=== PATIENT | male | born 1960 | race Two or more races ===

== ENCOUNTER 2016-04-04 09:49 | Inpatient (IN) | payer MEDICAID ==
[2016-04-04] VITALS (22 sets, daily range): BP systolic 105–163; BP diastolic 43–103
[~2016-04-04] VITALS: Ht 175.3 cm; Wt 90.4 kg
[~2016-04-04 09:49] MED LIST: ALBU18 IN; BACL20TA PO; CARV3.1213 OR; DIVA500T59 PO; DOCU100T15 PO; FER325T PO; FLUC100T3 PO; FLUR30CA12 PO; FURO20TA3 PO; IBUP800T24 PO; NOR5T PO; OMEP20CA5 PO; OXYC10TA44 PO; PANT40TA2 PO; POTA20TA53 PO; PRED-188 PO; QUET400T PO; ROPI1TAB22 PO; SENN-58 PO; SUCR1TAB PO; TAMS0.4C36 PO
[2016-04-04] MEDS ORDERED: SUCCINYLCHOLINE CHLORIDE 20 MG/ML 10ML VIAL IV ONE ×2 (09:57→10:15)
[2016-04-04] MEDS ORDERED: ETOMIDATE (2MG/ML) 20ML VIAL IV ONE ×2 (09:57→10:15)
[2016-04-04] MEDS ORDERED: IPRATROPIUM BROM 0.5 MG/2.5ML INH SOL NEB ONE (10:15)
[2016-04-04] MEDS ORDERED: ALBUTEROL SULF 2.5 MG/0.5ML(0.5%) NEB SOLN NEB ONE (10:15)
[2016-04-04] MEDS: MIDAZOLAM DRIP 100 mg/100mL NS 100 ML IV SCH (10:30)
[2016-04-04] MEDS ORDERED: methylPREDNISolone SOD SUCC 125 MG/2 ML VL IV ONE (10:30)
[2016-04-04 11:34] LABS: Basophils # (auto) 0 uL; Basophils % (auto) 0.1 % (0.0-2.0); DEFINITIVE VIEW TRANSMISSION; Eosinophils # (auto) 0 uL; Eosinophils % (auto) 0.5 % (0.0-7.0); Hemoglobin 13.3 g/dL (13.5-17.5); Lymphocytes # (auto) 1.5 uL; Lymphocytes % (auto) 22.1 % (10.0-50.0); Mean Corpuscular Hemoglobin 25.1 pg (28.0-32.0); Mean Corpuscular Hgb Conc. 31.6 g/dL (32.0-36.0); Mean Corpuscular Volume 79.6 fL (80.0-100.0); Mean Platelet Volume 8.8 fL (7.4-10.4); Monocytes # (auto) 0.6 uL; Monocytes % (auto) 8.3 % (0.0-12.0); Neutrophils # (auto) 4.8 uL; Platelet Count (auto) 295 10^3/uL (140-450); Red Cell Distribution Width 19.4 % (11.6-16.0); White Blood Cell 6.9 10^3/uL (4.4-10.8)
[2016-04-04 11:48] LABS: Albumin 3.7 g/dL (3.4-5.0); BUN/Creatinine Ratio 20.8; Bilirubin, Total 0.3 mg/dL (0.2-1.0); Calcium 9.2 mg/dL (8.5-10.1); Total Protein 7.9 g/dL (6.4-8.2)
[2016-04-04 11:50] LABS: INR 1.14 (0.9-1.15); Partial Thromboplastin Time 26.6 sec (22.64-33.71); Prothrombin Time 11.7 sec (9.37-12.3)
[2016-04-04 11:57] LABS: Urine Bilirubin 1+ (Negative); Urine Blood Negative /uL (Negative); Urine Color Yellow (Yellow); Urine Glucose Normal (Normal); Urine Hyaline Cast MOD /lpf (0 - 2); Urine Mucus FEW (None Seen); Urine Nitrite Negative (Negative); Urine RBC <1 /hpf (0 - 3); Urine Squamous Epithelial Cell FEW /hpf (<5)
[2016-04-04 12:35] LABS: Urine Ketone 2+ (Negative)
[2016-04-04] MEDS ORDERED: MORPHINE SULF INJ 2 MG/ML SYRINGE 1ML IV PRN (13:00)
[2016-04-04] MEDS ORDERED: NITROGLYCERIN 0.4 MG SL TAB SL PRN (13:00)
[2016-04-04] MEDS ORDERED: OSELTAMIVIR 75 MG CAP PO ONE (13:00)
[2016-04-04] MEDS ORDERED: ALBUTEROL SULF 2.5 MG/0.5ML(0.5%) NEB SOLN NEB PRN (13:00)
[2016-04-04] MEDS ORDERED: LORazepam 2MG/ML-1ML VIAL IV PRN (13:00)
[2016-04-04] MEDS ORDERED: PROMETHAZINE HCL 25 MG/ML 1ML IV PRN (13:00)
[2016-04-04] MEDS: SODIUM CHLORIDE 0.9% 1,000 ML IV SCH ×3 (13:24→14:10)
[2016-04-04] MEDS ORDERED: PROPOFOL 100 ML IV ONE (14:07)
[2016-04-04] MEDS: PROPOFOL 100 ML IV SCH (14:20)
[2016-04-04 15:07] LABS: B-Type Natriuretic Peptide 25.5 pg/mL (0-100); Temperature: 21.1 C (20.0-25.0)
[2016-04-04] MEDS ORDERED: AZITHROMYCIN 500MG/D5W 250ML 250 ML IV ONE (17:15)
[2016-04-04] MEDS ORDERED: VANCOMYCIN PER PHARMACY 0 MG IV SCH (17:15)
[2016-04-04] MEDS: IPRATROPIUM BROM 0.5 MG/2.5ML INH SOL NEB SCH (19:13)
[2016-04-04] MEDS: ALBUTEROL SULF 2.5 MG/0.5ML(0.5%) NEB SOLN NEB SCH (19:13)
[2016-04-04] MEDS: methylPREDNISolone SOD SUCC 40 MG/ML VL IV SCH (19:45)
[2016-04-04] MEDS: PIPERACILLIN-TAZOB 3.375GM 100 ML IV SCH (19:45)
[2016-04-04] MEDS ORDERED: PATIENTS OWN MEDICATION (Docusate Sodium 100 MG) PO SCH (22:00)
[2016-04-04] MEDS ORDERED: OSELTAMIVIR 75 MG CAP PO SCH (22:00)
[2016-04-04] MEDS: CARVEDILOL 3.125 MG TAB PO SCH (22:46)
[2016-04-04] MEDS: BACLOFEN 10 MG TAB PO SCH (22:46)
[2016-04-05] VITALS (105 sets, daily range): BP systolic 103–162; BP diastolic 59–94
[2016-04-05] MEDS: VANCOMYCIN 1,250 MG in D5W 5% 250 ML IV SCH ×3 (00:02→22:36)
[2016-04-05] MEDS: SUCRALFATE 1 GM TAB PO SCH ×4 (00:12→18:34)
[2016-04-05] MEDS: methylPREDNISolone SOD SUCC 40 MG/ML VL IV SCH ×4 (00:12→18:34)
[2016-04-05] MEDS: IPRATROPIUM BROM 0.5 MG/2.5ML INH SOL NEB SCH ×4 (00:45→18:21)
[2016-04-05] MEDS: ALBUTEROL SULF 2.5 MG/0.5ML(0.5%) NEB SOLN NEB SCH ×4 (00:45→18:21)
[2016-04-05] MEDS: PIPERACILLIN-TAZOB 3.375GM 100 ML IV SCH ×4 (01:00→18:34)
[2016-04-05] MEDS: PROPOFOL 100 ML IV SCH ×3 (01:10→21:43)
[2016-04-05 04:36] LABS: DEFINITIVE VIEW TRANSMISSION; Hematocrit 35.9 % (41.0-53.0); Hemoglobin 11.4 g/dL (13.5-17.5); Mean Corpuscular Hemoglobin 25.4 pg (28.0-32.0); Mean Corpuscular Hgb Conc. 31.7 g/dL (32.0-36.0); Mean Corpuscular Volume 80.1 fL (80.0-100.0); Mean Platelet Volume 8.7 fL (7.4-10.4); Platelet Count (auto) 310 10^3/uL (140-450); Red Cell Distribution Width 19.7 % (11.6-16.0); SUSPECT VIEW TRANSMISSION; White Blood Cell 8.9 10^3/uL (4.4-10.8)
[2016-04-05 04:41] LABS: Metamyelocytes % 0; Myelocytes % 0; Promyelocytes % 0; Reactive Lymphocytes 0
[2016-04-05 05:07] LABS: BUN/Creatinine Ratio 19.8; Bilirubin, Total 0.4 mg/dL (0.2-1.0); Calcium 8.8 mg/dL (8.5-10.1); Potassium 3.5 mmol/L (3.5-5.1); Total Protein 6.5 g/dL (6.4-8.2)
[2016-04-05 05:17] LABS: B-Type Natriuretic Peptide 47.88 pg/mL (0-100)
[2016-04-05 05:18] LABS: Anisocytosis Moderate; Hypochromia Slight; Ovalocytes FEW; Platelet Estimate Adequate
[2016-04-05 05:24] LABS: Temperature: 21.9 C (20.0-25.0)
[2016-04-05] MEDS: MIDAZOLAM DRIP 100 mg/100mL NS 100 ML IV SCH (05:31)
[2016-04-05] MEDS: SODIUM CHLORIDE 0.9% 1,000 ML IV SCH (05:32)
[2016-04-05] MEDS: DOCUSATE SOD 100 MG CAP PO SCH ×2 (10:00→21:43)
[2016-04-05] MEDS ORDERED: LEVOFLOXACIN 500MG 100 ML IV SCH (10:00)
[2016-04-05] MEDS ORDERED: DIVALPROEX SODIUM 1500 MG PO SCH (10:00)
[2016-04-05] MEDS: TAMSULOSIN HYDROCHLORIDE 0.4 MG CAP PO SCH (10:00)
[2016-04-05] MEDS: ENOXAPARIN SOD 40 MG/0.4 ML SYRINGE SC SCH (10:09)
[2016-04-05] MEDS: BACLOFEN 10 MG TAB PO SCH ×2 (10:10→21:42)
[2016-04-05] MEDS: PANTOPRAZOLE 40 MG TAB PO SCH (10:10)
[2016-04-05] MEDS: CARVEDILOL 3.125 MG TAB PO SCH ×2 (10:11→22:36)
[2016-04-05] MEDS: AZITHROMYCIN 500MG/D5W 250ML 250 ML IV SCH (10:13)
[2016-04-05] MEDS ORDERED: MIDAZOLAM DRIP 100 mg/100mL NS 100 ML IV ONE (13:39)
[2016-04-05] MEDS ORDERED: MIDAZOLAM DRIP 100 mg/100mL NS 100 ML IV SCH (14:00)
[2016-04-05] MEDS ORDERED: PATIENTS OWN MEDICATION (Quetiapine Fumerate (Seroquel) 1 TAB) PO SCH (18:00)
[2016-04-05] MEDS: QUEtiapine FUMARATE 100 MG TAB PO SCH (21:41)
[2016-04-05] MEDS: ROPINIROLE 2 MG PO SCH (21:44)
[2016-04-06] VITALS (90 sets, daily range): BP systolic 95–158; BP diastolic 47–95
[2016-04-06] MEDS: methylPREDNISolone SOD SUCC 40 MG/ML VL IV SCH ×4 (00:29→17:47)
[2016-04-06] MEDS: SUCRALFATE 1 GM TAB PO SCH ×4 (00:29→17:48)
[2016-04-06] MEDS: PIPERACILLIN-TAZOB 3.375GM 100 ML IV SCH ×4 (00:29→19:17)
[2016-04-06] MEDS: ALBUTEROL SULF 2.5 MG/0.5ML(0.5%) NEB SOLN NEB SCH ×4 (00:30→19:32)
[2016-04-06] MEDS: IPRATROPIUM BROM 0.5 MG/2.5ML INH SOL NEB SCH ×4 (00:30→19:32)
[2016-04-06 04:14] LABS: DEFINITIVE VIEW TRANSMISSION; Hematocrit 35.1 % (41.0-53.0); Hemoglobin 10.9 g/dL (13.5-17.5); Mean Corpuscular Hemoglobin 24.9 pg (28.0-32.0); Mean Corpuscular Hgb Conc. 31.1 g/dL (32.0-36.0); Mean Corpuscular Volume 80.2 fL (80.0-100.0); Mean Platelet Volume 8.9 fL (7.4-10.4); Platelet Count (auto) 278 10^3/uL (140-450); White Blood Cell 7.5 10^3/uL (4.4-10.8)
[2016-04-06 04:45] LABS: Red Cell Distribution Width 20.5 % (11.6-16.0)
[2016-04-06 04:46] LABS: Metamyelocytes % 0; Myelocytes % 0; Promyelocytes % 0; Reactive Lymphocytes 0
[2016-04-06 04:49] LABS: Albumin 2.7 g/dL (3.4-5.0); BUN/Creatinine Ratio 19.3; Bilirubin, Total 0.3 mg/dL (0.2-1.0); Calcium 8.9 mg/dL (8.5-10.1); Magnesium 2.1 mg/dL (1.6-2.6)
[2016-04-06 04:59] LABS: Potassium 2.9 mmol/L (3.5-5.1)
[2016-04-06 05:33] LABS: Anisocytosis Moderate; Hypochromia Slight; Ovalocytes FEW; Platelet Estimate Adequate
[2016-04-06] MEDS ORDERED: POTASSIUM CHLORIDE 40 MEQ, LIDOCAINE 1% (LOCAL ANESTH.) 4 ML in SODIUM CHL 0.9% 250 ML IV ONE (06:00)
[2016-04-06] MEDS: PROPOFOL 100 ML IV SCH ×3 (07:08→19:18)
[2016-04-06] MEDS: DOCUSATE SOD 100 MG CAP PO SCH ×2 (09:05→21:31)
[2016-04-06] MEDS: AZITHROMYCIN 500MG/D5W 250ML 250 ML IV SCH (09:05)
[2016-04-06] MEDS: TAMSULOSIN HYDROCHLORIDE 0.4 MG CAP PO SCH (09:06)
[2016-04-06] MEDS: CARVEDILOL 3.125 MG TAB PO SCH ×2 (09:06→21:33)
[2016-04-06] MEDS: BACLOFEN 10 MG TAB PO SCH ×2 (09:06→21:34)
[2016-04-06] MEDS: PANTOPRAZOLE 40 MG TAB PO SCH (09:07)
[2016-04-06] MEDS: ENOXAPARIN SOD 40 MG/0.4 ML SYRINGE SC SCH (09:07)
[2016-04-06] MEDS: VANCOMYCIN 1,250 MG in D5W 5% 250 ML IV SCH ×2 (11:15→22:38)
[2016-04-06] MEDS: QUEtiapine FUMARATE 100 MG TAB PO SCH (21:34)
[2016-04-06] MEDS: ROPINIROLE 2 MG PO SCH (22:00)
[2016-04-07] VITALS (27 sets, daily range): BP systolic 99–120; BP diastolic 48–78
[2016-04-07] MEDS: IPRATROPIUM BROM 0.5 MG/2.5ML INH SOL NEB SCH ×4 (00:55→19:29)
[2016-04-07] MEDS: ALBUTEROL SULF 2.5 MG/0.5ML(0.5%) NEB SOLN NEB SCH ×4 (00:55→19:30)
[2016-04-07] MEDS: PIPERACILLIN-TAZOB 3.375GM 100 ML IV SCH ×4 (01:00→17:58)
[2016-04-07 03:43] LABS: DEFINITIVE VIEW TRANSMISSION; Hematocrit 34.5 % (41.0-53.0); Hemoglobin 10.7 g/dL (13.5-17.5); Mean Corpuscular Hemoglobin 24.9 pg (28.0-32.0); Mean Corpuscular Volume 80.6 fL (80.0-100.0); Mean Platelet Volume 9.1 fL (7.4-10.4); Platelet Count (auto) 259 10^3/uL (140-450); White Blood Cell 7.1 10^3/uL (4.4-10.8)
[2016-04-07 03:49] LABS: Red Cell Distribution Width 20.5 % (11.6-16.0)
[2016-04-07 03:50] LABS: Metamyelocytes % 0; Myelocytes % 0; Promyelocytes % 0; Reactive Lymphocytes 0
[2016-04-07 04:08] LABS: Albumin 2.6 g/dL (3.4-5.0); BUN/Creatinine Ratio 29.6; Bilirubin, Total 0.3 mg/dL (0.2-1.0); Calcium 8.6 mg/dL (8.5-10.1); Potassium 3.3 mmol/L (3.5-5.1); Total Protein 5.8 g/dL (6.4-8.2)
[2016-04-07 04:14] LABS: Anisocytosis Moderate; Hypersegmented Neutrophils Present; Microcytosis Slight; Platelet Estimate Adequate
[2016-04-07 04:15] LABS: Hypochromia Slight
[2016-04-07] MEDS: SUCRALFATE 1 GM TAB PO SCH ×4 (05:06→17:28)
[2016-04-07] MEDS: methylPREDNISolone SOD SUCC 40 MG/ML VL IV SCH ×4 (05:12→17:28)
[2016-04-07] MEDS: MORPHINE SULF INJ 2 MG/ML SYRINGE 1ML IV PRN ×2 (08:53→22:04)
[2016-04-07] MEDS: AZITHROMYCIN 500MG/D5W 250ML 250 ML IV SCH (09:05)
[2016-04-07] MEDS: BACLOFEN 10 MG TAB PO SCH ×2 (09:23→22:05)
[2016-04-07] MEDS: PANTOPRAZOLE 40 MG TAB PO SCH (09:23)
[2016-04-07] MEDS: ENOXAPARIN SOD 40 MG/0.4 ML SYRINGE SC SCH (09:23)
[2016-04-07] MEDS: DOCUSATE SOD 100 MG CAP PO SCH ×2 (09:24→22:05)
[2016-04-07] MEDS: CARVEDILOL 3.125 MG TAB PO SCH ×2 (09:24→22:06)
[2016-04-07] MEDS: TAMSULOSIN HYDROCHLORIDE 0.4 MG CAP PO SCH (09:24)
[2016-04-07] MEDS ORDERED: POTASSIUM CHLORIDE 40 MEQ, LIDOCAINE 1% (LOCAL ANESTH.) 4 ML in SODIUM CHL 0.9% 250 ML IV ONE (10:15)
[2016-04-07] MEDS: VANCOMYCIN 1,250 MG in D5W 5% 250 ML IV SCH ×2 (11:03→23:33)
[2016-04-07] MEDS: ROPINIROLE 2 MG PO SCH (22:00)
[2016-04-07] MEDS: QUEtiapine FUMARATE 100 MG TAB PO SCH (22:05)
[2016-04-08] MEDS: ZOLPIDEM TARTRATE 5 MG TAB PO PRN
[2016-04-08] MEDS: ALBUTEROL SULF 2.5 MG/0.5ML(0.5%) NEB SOLN NEB SCH ×4 (00:22→19:12)
[2016-04-08] MEDS: IPRATROPIUM BROM 0.5 MG/2.5ML INH SOL NEB SCH ×4 (00:22→19:12)
[2016-04-08] MEDS: PIPERACILLIN-TAZOB 3.375GM 100 ML IV SCH ×4 (01:41→17:54)
[2016-04-08] MEDS: MORPHINE SULF INJ 2 MG/ML SYRINGE 1ML IV PRN ×5 (02:13→22:24)
[2016-04-08 04:48] VITALS: BP 123/75
[2016-04-08] MEDS: methylPREDNISolone SOD SUCC 40 MG/ML VL IV SCH ×4 (06:08→17:54)
[2016-04-08] MEDS: SUCRALFATE 1 GM TAB PO SCH ×4 (06:08→17:54)
[2016-04-08 06:35] LABS: DEFINITIVE VIEW TRANSMISSION; Hematocrit 33.4 % (41.0-53.0); Hemoglobin 10.6 g/dL (13.5-17.5); Mean Corpuscular Hemoglobin 25.5 pg (28.0-32.0); Mean Corpuscular Hgb Conc. 31.8 g/dL (32.0-36.0); Mean Corpuscular Volume 80.3 fL (80.0-100.0); Mean Platelet Volume 9.2 fL (7.4-10.4); Platelet Count (auto) 221 10^3/uL (140-450); White Blood Cell 3.9 10^3/uL (4.4-10.8)
[2016-04-08 07:00] LABS: Potassium 3.5 mmol/L (3.5-5.1)
[2016-04-08 07:02] LABS: Red Cell Distribution Width 20.2 % (11.6-16.0)
[2016-04-08 07:03] LABS: Metamyelocytes % 0; Myelocytes % 0; Promyelocytes % 0; Reactive Lymphocytes 0
[2016-04-08 07:07] LABS: Albumin 2.4 g/dL (3.4-5.0); BUN/Creatinine Ratio 30.3; Calcium 8.2 mg/dL (8.5-10.1)
[2016-04-08 07:09] LABS: Bilirubin, Total 0.4 mg/dL (0.2-1.0); Total Protein 5.5 g/dL (6.4-8.2)
[2016-04-08 07:51] LABS: Anisocytosis Slight; Hypochromia Slight; Platelet Estimate Adequate
[2016-04-08 08:52] VITALS: BP 102/66
[2016-04-08] MEDS: BACLOFEN 10 MG TAB PO SCH ×2 (09:49→22:24)
[2016-04-08] MEDS: AZITHROMYCIN 500MG/D5W 250ML 250 ML IV SCH (09:49)
[2016-04-08] MEDS: PANTOPRAZOLE 40 MG TAB PO SCH (09:49)
[2016-04-08] MEDS: DOCUSATE SOD 100 MG CAP PO SCH ×2 (09:49→22:23)
[2016-04-08] MEDS: ENOXAPARIN SOD 40 MG/0.4 ML SYRINGE SC SCH (09:50)
[2016-04-08] MEDS: TAMSULOSIN HYDROCHLORIDE 0.4 MG CAP PO SCH (09:50)
[2016-04-08] MEDS: CARVEDILOL 3.125 MG TAB PO SCH ×2 (09:50→22:23)
[2016-04-08] MEDS: VANCOMYCIN 1,250 MG in D5W 5% 250 ML IV SCH ×2 (11:32→22:58)
[2016-04-08 13:00] VITALS: BP 104/60
[2016-04-08 17:00] VITALS: BP 104/62
[2016-04-08 22:00] VITALS: BP 114/69
[2016-04-08] MEDS: ROPINIROLE 2 MG PO SCH (22:00)
[2016-04-08] MEDS: QUEtiapine FUMARATE 100 MG TAB PO SCH (22:24)
[2016-04-09] MEDS: SUCRALFATE 1 GM TAB PO SCH ×4 (00:02→17:57)
[2016-04-09] MEDS: ZOLPIDEM TARTRATE 5 MG TAB PO PRN ×2 (00:03→22:57)
[2016-04-09] MEDS: methylPREDNISolone SOD SUCC 40 MG/ML VL IV SCH ×4 (00:03→17:57)
[2016-04-09] MEDS: ALBUTEROL SULF 2.5 MG/0.5ML(0.5%) NEB SOLN NEB SCH ×4 (00:27→19:32)
[2016-04-09] MEDS: IPRATROPIUM BROM 0.5 MG/2.5ML INH SOL NEB SCH ×4 (00:27→19:32)
[2016-04-09] MEDS: PIPERACILLIN-TAZOB 3.375GM 100 ML IV SCH ×4 (00:46→18:38)
[2016-04-09 05:00] VITALS: BP 114/73
[2016-04-09] MEDS: MORPHINE SULF INJ 2 MG/ML SYRINGE 1ML IV PRN ×3 (05:56→20:54)
[2016-04-09 09:11] VITALS: BP 119/69
[2016-04-09] MEDS: DOCUSATE SOD 100 MG CAP PO SCH ×2 (10:00→21:21)
[2016-04-09] MEDS: BACLOFEN 10 MG TAB PO SCH ×2 (10:21→21:21)
[2016-04-09] MEDS: TAMSULOSIN HYDROCHLORIDE 0.4 MG CAP PO SCH (10:21)
[2016-04-09] MEDS: PANTOPRAZOLE 40 MG TAB PO SCH (10:22)
[2016-04-09] MEDS: CARVEDILOL 3.125 MG TAB PO SCH ×2 (10:24→21:22)
[2016-04-09] MEDS: ENOXAPARIN SOD 40 MG/0.4 ML SYRINGE SC SCH (10:34)
[2016-04-09] MEDS: AZITHROMYCIN 500MG/D5W 250ML 250 ML IV SCH (10:34)
[2016-04-09] MEDS: VANCOMYCIN 1,250 MG in D5W 5% 250 ML IV SCH ×2 (10:34→22:57)
[2016-04-09 12:39] VITALS: BP 121/72
[2016-04-09 17:04] VITALS: BP 122/69
[2016-04-09] MEDS: FUROSEMIDE 20 MG/2 ML VIAL IV SCH (17:57)
[2016-04-09 18:56] LABS: DEFINITIVE VIEW TRANSMISSION; Hematocrit 36.4 % (41.0-53.0); Hemoglobin 11.3 g/dL (13.5-17.5); Mean Corpuscular Hgb Conc. 31.1 g/dL (32.0-36.0); Mean Corpuscular Volume 80.3 fL (80.0-100.0); Mean Platelet Volume 9.8 fL (7.4-10.4); Platelet Count (auto) 250 10^3/uL (140-450); Red Cell Distribution Width 19.5 % (11.6-16.0); SUSPECT VIEW TRANSMISSION; White Blood Cell 5.1 10^3/uL (4.4-10.8)
[2016-04-09 19:02] LABS: Albumin 2.8 g/dL (3.4-5.0); BUN/Creatinine Ratio 26.9; Bilirubin, Total 0.2 mg/dL (0.2-1.0); Calcium 8.5 mg/dL (8.5-10.1); Potassium 3.7 mmol/L (3.5-5.1); Total Protein 6.1 g/dL (6.4-8.2)
[2016-04-09 19:06] LABS: Metamyelocytes % 0; Myelocytes % 0; Promyelocytes % 0; Reactive Lymphocytes 0
[2016-04-09 20:45] LABS: Anisocytosis Moderate; Platelet Estimate Adequate
[2016-04-09 20:46] LABS: Hypochromia Slight; Ovalocytes FEW
[2016-04-09 21:10] VITALS: BP 134/74
[2016-04-09] MEDS: QUEtiapine FUMARATE 100 MG TAB PO SCH (21:21)
[2016-04-09] MEDS: POTASSIUM CHL 20 Meq TABLET PO SCH (21:22)
[2016-04-09] MEDS: ROPINIROLE 2 MG PO SCH (21:23)
[2016-04-10] MEDS: SUCRALFATE 1 GM TAB PO SCH ×3 (00:01→12:00)
[2016-04-10] MEDS: methylPREDNISolone SOD SUCC 40 MG/ML VL IV SCH ×3 (00:01→12:00)
[2016-04-10] MEDS: IPRATROPIUM BROM 0.5 MG/2.5ML INH SOL NEB SCH ×3 (00:34→11:10)
[2016-04-10] MEDS: ALBUTEROL SULF 2.5 MG/0.5ML(0.5%) NEB SOLN NEB SCH ×3 (00:34→11:09)
[2016-04-10] MEDS: MORPHINE SULF INJ 2 MG/ML SYRINGE 1ML IV PRN ×2 (01:22→05:59)
[2016-04-10] MEDS: PIPERACILLIN-TAZOB 3.375GM 100 ML IV SCH ×2 (01:29→06:09)
[2016-04-10 05:38] VITALS: BP 124/69
[2016-04-10] MEDS: FUROSEMIDE 20 MG/2 ML VIAL IV SCH (05:49)
[2016-04-10 07:19] LABS: B-Type Natriuretic Peptide 133.4 pg/mL (0-100); Temperature: 22.5 C (20.0-25.0)
[2016-04-10 09:00] VITALS: BP 117/73
[2016-04-10] MEDS ORDERED: LEVOFLOXACIN 500 MG TAB PO SCH (10:00)
[2016-04-10] MEDS: POTASSIUM CHL 20 Meq TABLET PO SCH (10:24)
[2016-04-10] MEDS: BACLOFEN 10 MG TAB PO SCH (10:24)
[2016-04-10] MEDS: PANTOPRAZOLE 40 MG TAB PO SCH (10:24)
[2016-04-10] MEDS: ENOXAPARIN SOD 40 MG/0.4 ML SYRINGE SC SCH (10:24)
[2016-04-10] MEDS: TAMSULOSIN HYDROCHLORIDE 0.4 MG CAP PO SCH (10:24)
[2016-04-10] MEDS: DOCUSATE SOD 100 MG CAP PO SCH (10:24)
[2016-04-10] MEDS: CARVEDILOL 3.125 MG TAB PO SCH (10:25)
[2016-04-10 13:00] VITALS: BP 111/45
== END 2016-04-10 12:53 | disposition home or self-care (01) | DRG 194 ==
LOC: EDBD 09:49 → ER 09:51 → TELE 09:52 → ICU WEST 20:06 → TELE-WESTW 04-07 12:00
PROVIDERS: ADMIT Internal Medicine; ATTEND Internal Medicine
PROC: 5A1945Z Respiratory Ventilation, 24-96 Consecutive Hours (ICD-10-PCS; principal; 2016-04-04)
PROC: 0BH17EZ Insertion of Endotracheal Airway into Trachea, Via Natural or Artificial Opening (ICD-10-PCS; 2016-04-04)
DX: I11.0 Hypertensive heart disease with heart failure (principal); R40.20 Unspecified coma; J96.01 Acute respiratory failure with hypoxia; J96.02 Acute respiratory failure with hypercapnia; E44.0 Moderate protein-calorie malnutrition; I50.9 Heart failure, unspecified; J44.1 Chronic obstructive pulmonary disease with (acute) exacerbation; J32.9 Chronic sinusitis, unspecified; R91.8 Other nonspecific abnormal finding of lung field; E87.6 Hypokalemia; F41.9 Anxiety disorder, unspecified; F19.90 Other psychoactive substance use, unspecified, uncomplicated; G89.4 Chronic pain syndrome; E66.9 Obesity, unspecified; J45.909 Unspecified asthma, uncomplicated; E03.9 Hypothyroidism, unspecified; Z68.29 Body mass index [BMI] 29.0-29.9, adult; Z81.1 Family history of alcohol abuse and dependence; Z80.9 Family history of malignant neoplasm, unspecified; Z84.89 Family history of other specified conditions; Z82.0 Family history of epilepsy and other diseases of the nervous system; Z83.3 Family history of diabetes mellitus; Z79.899 Other long term (current) drug therapy; I25.2 Old myocardial infarction; Z98.890 Other specified postprocedural states; Z87.891 Personal history of nicotine dependence; Z87.01 Personal history of pneumonia (recurrent)
CPT/HCPCS: 31500; 36415; 36600; 70450; 71010; 80053; 80202; 81001; 82550; 82805; 82962; 83735; 83880; 84443; 84484; 85007; 85025; 85027; 85049; 85379; 85610; 85730; 87040; 87070; 87081; 87205; 87400; 93005; 93971; 94002; 94003; 94640; 95819; 96374; 96375; 97116; 97530; G0434; J0330; J2001; J2543; J2704; J7060

== ENCOUNTER 2016-05-16 09:15 | Emergency (ER) | payer MEDICAID ==
[~2016-05-16] VITALS: Ht 165.1 cm; Wt 91.6 kg
[2016-05-16 09:42] VITALS: BP 118/59
[2016-05-16] MEDS ORDERED: PROMETHAZINE HCL 25 MG/ML 1ML IM ONE (10:45)
[2016-05-16] MEDS ORDERED: MORPHINE SULFATE 10 MG/ML INJ 1ML SDV IM ONE (10:45)
== END 2016-05-16 10:59 | disposition home or self-care (01) ==
LOC: ER 09:15
DX: M47.892 Other spondylosis, cervical region (principal); M43.6 Torticollis; M54.5 Low back pain; J45.909 Unspecified asthma, uncomplicated; G89.29 Other chronic pain; J44.9 Chronic obstructive pulmonary disease, unspecified; I11.0 Hypertensive heart disease with heart failure; I50.9 Heart failure, unspecified; Z79.899 Other long term (current) drug therapy; Z87.891 Personal history of nicotine dependence
CPT/HCPCS: 72040; 96372; 99284; J2270; J2550

== ENCOUNTER 2016-06-06 10:40 | Inpatient (IN) | payer MEDICAID ==
[~2016-06-06] VITALS: Ht 165.1 cm; Wt 96.5 kg
[2016-06-06 12:04] LABS: Albumin 3.5 g/dL (3.4-5.0); Alkaline Phosphatase 77 U/L (45-117); Anion Gap 10 (5-15); Aspartate Aminotransferase 10 U/L (15-37); Bilirubin, Total 0.2 mg/dL (0.2-1.0); Blood Urea Nitrogen 28 mg/dL (7-18); Calcium 8.2 mg/dL (8.5-10.1); Carbon Dioxide 30 mmol/L (21-32); Chloride 106 mmol/L (98-107); GFR African American 151 mL/min; GFR Non-African American 124 mL/min; Glucose 102 mg/dL (74-106); Magnesium 2.8 mg/dL (1.6-2.6); Potassium 4.2 mmol/L (3.5-5.1); Sodium 146 mmol/L (136-145); Total Protein 6.8 g/dL (6.4-8.2)
[2016-06-06 12:27] LABS: Basophils # (auto) 0.1 uL; Basophils % (auto) 0.6 % (0.0-2.0); DEFINITIVE VIEW TRANSMISSION; Eosinophils # (auto) 0.2 uL; Hematocrit 29.9 % (41.0-53.0); Hemoglobin 9.4 g/dL (13.5-17.5); Lymphocytes # (auto) 1.7 uL; Lymphocytes % (auto) 17.8 % (10.0-50.0); Mean Corpuscular Hemoglobin 25.4 pg (28.0-32.0); Mean Corpuscular Hgb Conc. 31.6 g/dL (32.0-36.0); Mean Corpuscular Volume 80.4 fL (80.0-100.0); Mean Platelet Volume 8.4 fL (7.4-10.4); Monocytes # (auto) 0.8 uL; Monocytes % (auto) 8.4 % (0.0-12.0); Neutrophils # (auto) 6.7 uL; Neutrophils % (auto) 71.2 % (37.0-80.0); Platelet Count (auto) 265 10^3/uL (140-450); Red Cell Distribution Width 16.8 % (11.6-16.0); White Blood Cell 9.5 10^3/uL (4.4-10.8)
[2016-06-06] MEDS ORDERED: ALBUTEROL SULF 2.5 MG/0.5ML(0.5%) NEB SOLN NEB ONE (12:30)
[2016-06-06] MEDS ORDERED: ONDANSETRON HCL 4 MG/2 ML VIAL IV ONE (12:30)
[2016-06-06] MEDS ORDERED: IPRATROPIUM BROM 0.5 MG/2.5ML INH SOL NEB ONE (12:30)
[2016-06-06] MEDS ORDERED: methylPREDNISolone SOD SUCC 125 MG/2 ML VL IV ONE (12:30)
[2016-06-06] MEDS ORDERED: MORPHINE SULFATE 4 MG/ML SYRG IV ONE (12:30)
[2016-06-06 12:56] LABS: INR 1.03 (0.9-1.15); Partial Thromboplastin Time 23.7 sec (22.64-33.71); Prothrombin Time 10.6 sec (9.37-12.3)
[2016-06-06 12:58] LABS: B-Type Natriuretic Peptide 89.5 pg/mL (0-100); Temperature: 22.2 C (20.0-25.0)
[2016-06-06] MEDS ORDERED: NALOXONE HCL 0.4 MG/ML VIAL ONE (13:42)
[2016-06-06] MEDS ORDERED: NALOXONE HCL 1MG/ML 2ML SYRINGE IV ONE (14:00)
[2016-06-06] MEDS ORDERED: IOHEXOL 350 MG/ML 100ML IJ ONE (14:07)
[2016-06-06 14:46] VITALS: BP 133/73
[2016-06-06] MEDS ORDERED: NALOXONE HCL 0.4 MG/ML VIAL IV ONE (15:45)
[2016-06-06 16:45] VITALS: BP 133/73
[2016-06-06] MEDS ORDERED: cefTRIAXone 1GM/50ML D5W 50 ML IV ONE (17:00)
[2016-06-06] MEDS ORDERED: PROMETHAZINE HCL 25 MG/ML 1ML IV PRN (18:30)
[2016-06-06] MEDS ORDERED: ACETAMINOPHEN 500 MG TAB PO PRN (18:30)
[2016-06-06] MEDS ORDERED: OSELTAMIVIR 75 MG CAP PO ONE (18:30)
[2016-06-06] MEDS ORDERED: LACTULOSE 20Gm/30ML SOLN PO PRN (18:30)
[2016-06-06] MEDS ORDERED: NITROGLYCERIN 0.4 MG SL TAB SL PRN (18:30)
[2016-06-06] MEDS ORDERED: ALBUTEROL SULF 2.5 MG/0.5ML(0.5%) NEB SOLN NEB PRN (18:30)
[2016-06-06] MEDS ORDERED: MORPHINE SULF INJ 2 MG/ML SYRINGE 1ML IV PRN (18:30)
[2016-06-06] MEDS ORDERED: ENOXAPARIN SOD 40 MG/0.4 ML SYRINGE SC ONE (18:41)
[2016-06-06] MEDS ORDERED: ASPirin 81 mg TAB PO ONE (19:00)
[2016-06-06] MEDS: cefTRIAXone 1GM/50ML D5W 50 ML IV SCH (19:10)
[2016-06-06] MEDS: AZITHROMYCIN 500MG/D5W 250ML 250 ML IV SCH (19:15)
[2016-06-06] MEDS ORDERED: FUROSEMIDE 40 MG/4 ML VIAL IV ONE (19:15)
[2016-06-06] MEDS ORDERED: POTASSIUM CHL 20 Meq TABLET PO ONE (19:15)
[2016-06-06] MEDS ORDERED: FLUCONAZOLE 100 MG TAB PO ONE (19:15)
[2016-06-06] MEDS ORDERED: PANTOPRAZOLE 40 MG TAB PO ONE (19:15)
[2016-06-06 19:40] VITALS: BP 115/70
[2016-06-06] MEDS: DOCUSATE SOD 100 MG CAP PO SCH (22:00)
[2016-06-06] MEDS ORDERED: ACETAMINOPHEN PO SCH (22:00)
[2016-06-06] MEDS ORDERED: OXYCODONE PO SCH (22:00)
[2016-06-06] MEDS: CARVEDILOL 3.125 MG TAB PO SCH ×2 (22:00→23:21)
[2016-06-06] MEDS: SUCRALFATE 1 GM TAB PO SCH (22:00)
[2016-06-06] MEDS: BACLOFEN 10 MG TAB PO SCH (22:00)
[2016-06-06] MEDS ORDERED: FLURAZEPAM HCL 30 MG PO SCH (22:00)
[2016-06-06] MEDS: SENNA 8.6 MG TAB PO SCH (22:00)
[2016-06-07] VITALS (7 sets, daily range): BP systolic 115–132; BP diastolic 59–78
[2016-06-07] MEDS: methylPREDNISolone SOD SUCC 40 MG/ML VL IV SCH ×4 (00:12→18:21)
[2016-06-07] MEDS ORDERED: NEOMYCIN-BACITRACIN-POLYM UNITDOSE PKG TOP OINT TOP ONE (01:45)
[2016-06-07] MEDS ORDERED: LIDOCAINE W/ EPINEPHRINE 1% 20ML VIAL SC ONE (01:45)
[2016-06-07] MEDS: TEMAZEPAM 15 MG CAP PO PRN ×2 (03:44→23:17)
[2016-06-07] MEDS: IPRATROPIUM BROM 0.5 MG/2.5ML INH SOL NEB SCH ×4 (05:40→19:28)
[2016-06-07] MEDS: ALBUTEROL SULF 2.5 MG/0.5ML(0.5%) NEB SOLN NEB SCH ×4 (05:40→19:28)
[2016-06-07] MEDS: SUCRALFATE 1 GM TAB PO SCH ×4 (06:25→21:26)
[2016-06-07 06:33] LABS: Basophils # (auto) 0 uL; DEFINITIVE VIEW TRANSMISSION; Eosinophils # (auto) 0 uL; Hematocrit 29.9 % (41.0-53.0); Hemoglobin 9.3 g/dL (13.5-17.5); Lymphocytes # (auto) 0.3 uL; Lymphocytes % (auto) 7.4 % (10.0-50.0); Mean Corpuscular Hemoglobin 24.9 pg (28.0-32.0); Mean Corpuscular Volume 80.3 fL (80.0-100.0); Mean Platelet Volume 8.8 fL (7.4-10.4); Monocytes # (auto) 0.1 uL; Monocytes % (auto) 1.7 % (0.0-12.0); Neutrophils # (auto) 3.5 uL; Neutrophils % (auto) 90.9 % (37.0-80.0); Platelet Count (auto) 247 10^3/uL (140-450); Red Cell Distribution Width 16.4 % (11.6-16.0); White Blood Cell 3.8 10^3/uL (4.4-10.8)
[2016-06-07 06:47] LABS: Albumin 3.2 g/dL (3.4-5.0); Alkaline Phosphatase 87 U/L (45-117); Anion Gap 8 (5-15); Aspartate Aminotransferase 5 U/L (15-37); BUN/Creatinine Ratio 38.5; Bilirubin, Total 0.1 mg/dL (0.2-1.0); Blood Urea Nitrogen 25 mg/dL (7-18); Calcium 8.4 mg/dL (8.5-10.1); Carbon Dioxide 36 mmol/L (21-32); Chloride 102 mmol/L (98-107); GFR African American 164 mL/min; GFR Non-African American 136 mL/min; Glucose 155 mg/dL (74-106); Potassium 5.2 mmol/L (3.5-5.1); Sodium 146 mmol/L (136-145); Total Protein 6.4 g/dL (6.4-8.2)
[2016-06-07 07:53] LABS: B-Type Natriuretic Peptide 216.63 pg/mL (0-100)
[2016-06-07 07:54] LABS: Temperature: 21.6 C (20.0-25.0)
[2016-06-07] MEDS: cefTRIAXone 1GM/50ML D5W 50 ML IV SCH (09:39)
[2016-06-07] MEDS: FUROSEMIDE 40 MG/4 ML VIAL IV SCH (09:40)
[2016-06-07] MEDS: FERROUS SULFATE 325 MG TAB PO SCH ×3 (09:40→18:21)
[2016-06-07] MEDS ORDERED: ENALAPRIL MALEATE 2.5 MG TAB PO SCH (10:00)
[2016-06-07] MEDS ORDERED: OSELTAMIVIR 75 MG CAP PO SCH (10:00)
[2016-06-07] MEDS ORDERED: DIVALPROEX SODIUM 1500 MG PO SCH (10:00)
[2016-06-07] MEDS: FLUCONAZOLE 100 MG TAB PO SCH (11:01)
[2016-06-07] MEDS: DOCUSATE SOD 100 MG CAP PO SCH ×2 (11:01→21:28)
[2016-06-07] MEDS: ASPirin 81 mg TAB PO SCH (11:01)
[2016-06-07] MEDS: POTASSIUM CHL 20 Meq TABLET PO SCH (11:02)
[2016-06-07] MEDS: PANTOPRAZOLE 40 MG TAB PO SCH (11:02)
[2016-06-07] MEDS: BACLOFEN 10 MG TAB PO SCH ×2 (11:02→21:26)
[2016-06-07] MEDS: SENNA 8.6 MG TAB PO SCH ×2 (11:02→21:28)
[2016-06-07] MEDS: ENOXAPARIN SOD 40 MG/0.4 ML SYRINGE SC SCH (11:02)
[2016-06-07] MEDS: NITROGLYCERIN 0.2MG/HR TOPICAL PATCH TD SCH (11:03)
[2016-06-07] MEDS: AZITHROMYCIN 500MG/D5W 250ML 250 ML IV SCH (11:07)
[2016-06-07] MEDS: OXYCODONE W/ ACETAMINOPHEN 5/325MG TABLET PO SCH ×2 (13:56→21:27)
[2016-06-07] MEDS: ROPINIROLE HYDROCHLORIDE 1 MG PO SCH (18:00)
[2016-06-07] MEDS ORDERED: QUETIAPINE FUMERATE 400 MG PO SCH (18:00)
[2016-06-07] MEDS: TAMSULOSIN HYDROCHLORIDE 0.4 MG CAP PO SCH (18:22)
[2016-06-07] MEDS: LORazepam 0.5 MG TAB PO PRN ×2 (20:28)
[2016-06-07] MEDS: QUEtiapine FUMARATE 100 MG TAB PO SCH (21:29)
[2016-06-07] MEDS: CARVEDILOL 3.125 MG TAB PO SCH (21:30)
[2016-06-07] MEDS: HYDROcodone-ACET 5/325MG TAB PO PRN (23:24)
[2016-06-08] MEDS: IPRATROPIUM BROM 0.5 MG/2.5ML INH SOL NEB SCH ×4 (00:08→19:10)
[2016-06-08] MEDS: ALBUTEROL SULF 2.5 MG/0.5ML(0.5%) NEB SOLN NEB SCH ×4 (00:08→19:10)
[2016-06-08] MEDS: methylPREDNISolone SOD SUCC 40 MG/ML VL IV SCH ×3 (00:37→22:34)
[2016-06-08 05:00] VITALS: BP 120/75
[2016-06-08] MEDS: SUCRALFATE 1 GM TAB PO SCH ×4 (05:33→22:37)
[2016-06-08] MEDS: OXYCODONE W/ ACETAMINOPHEN 5/325MG TABLET PO SCH ×3 (05:34→22:00)
[2016-06-08 06:59] LABS: Calcium 8.7 mg/dL (8.5-10.1); Potassium 4.3 mmol/L (3.5-5.1)
[2016-06-08 07:03] LABS: Albumin 3.2 g/dL (3.4-5.0); BUN/Creatinine Ratio 35.1
[2016-06-08 07:04] LABS: Basophils # (auto) 0 uL; DEFINITIVE VIEW TRANSMISSION; Eosinophils # (auto) 0 uL; Hematocrit 28.2 % (41.0-53.0); Hemoglobin 8.9 g/dL (13.5-17.5); Lymphocytes # (auto) 0.3 uL; Lymphocytes % (auto) 5.1 % (10.0-50.0); Mean Corpuscular Hemoglobin 24.8 pg (28.0-32.0); Mean Corpuscular Hgb Conc. 31.5 g/dL (32.0-36.0); Mean Corpuscular Volume 78.8 fL (80.0-100.0); Mean Platelet Volume 8.9 fL (7.4-10.4); Monocytes # (auto) 0.2 uL; Monocytes % (auto) 2.7 % (0.0-12.0); Neutrophils % (auto) 92.2 % (37.0-80.0); Platelet Count (auto) 251 10^3/uL (140-450); Red Cell Distribution Width 16.5 % (11.6-16.0); White Blood Cell 6.5 10^3/uL (4.4-10.8)
[2016-06-08 07:08] LABS: Bilirubin, Total 0.1 mg/dL (0.2-1.0); Total Protein 6.3 g/dL (6.4-8.2)
[2016-06-08 07:30] VITALS: BP 124/87
[2016-06-08 07:55] VITALS: BP 124/87
[2016-06-08] MEDS: FUROSEMIDE 40 MG/4 ML VIAL IV SCH (09:49)
[2016-06-08] MEDS: cefTRIAXone 1GM/50ML D5W 50 ML IV SCH (09:49)
[2016-06-08] MEDS: DOCUSATE SOD 100 MG CAP PO SCH ×2 (09:50→22:00)
[2016-06-08] MEDS: FLUCONAZOLE 100 MG TAB PO SCH (09:50)
[2016-06-08] MEDS: CARVEDILOL 3.125 MG TAB PO SCH ×2 (09:51→22:38)
[2016-06-08] MEDS: SENNA 8.6 MG TAB PO SCH ×2 (09:52→22:00)
[2016-06-08] MEDS: ASPirin 81 mg TAB PO SCH (09:52)
[2016-06-08] MEDS: POTASSIUM CHL 20 Meq TABLET PO SCH (09:52)
[2016-06-08] MEDS: PANTOPRAZOLE 40 MG TAB PO SCH (09:52)
[2016-06-08] MEDS: BACLOFEN 10 MG TAB PO SCH ×2 (09:52→22:37)
[2016-06-08] MEDS: ENOXAPARIN SOD 40 MG/0.4 ML SYRINGE SC SCH (09:52)
[2016-06-08] MEDS: NITROGLYCERIN 0.2MG/HR TOPICAL PATCH TD SCH (09:53)
[2016-06-08 12:14] VITALS: BP 130/66
[2016-06-08] MEDS: AZITHROMYCIN 500MG/D5W 250ML 250 ML IV SCH (13:18)
[2016-06-08] MEDS: FERROUS SULFATE 325 MG TAB PO SCH ×3 (13:25→17:46)
[2016-06-08 15:54] VITALS: BP 119/74
[2016-06-08] MEDS: TAMSULOSIN HYDROCHLORIDE 0.4 MG CAP PO SCH (17:46)
[2016-06-08] MEDS: MORPHINE SULF INJ 2 MG/ML SYRINGE 1ML IV PRN ×2 (17:47→22:34)
[2016-06-08] MEDS: ROPINIROLE HYDROCHLORIDE 1 MG PO SCH (17:47)
[2016-06-08 21:55] VITALS: BP 120/54
[2016-06-08] MEDS: QUEtiapine FUMARATE 100 MG TAB PO SCH (22:35)
[2016-06-08] MEDS: TEMAZEPAM 15 MG CAP PO PRN (22:42)
[2016-06-09] MEDS: ALBUTEROL SULF 2.5 MG/0.5ML(0.5%) NEB SOLN NEB SCH ×4 (00:30→19:51)
[2016-06-09] MEDS: IPRATROPIUM BROM 0.5 MG/2.5ML INH SOL NEB SCH ×4 (00:30→19:51)
[2016-06-09 05:00] VITALS: BP 133/81
[2016-06-09] MEDS: OXYCODONE W/ ACETAMINOPHEN 5/325MG TABLET PO SCH ×3 (05:35→21:18)
[2016-06-09] MEDS: SUCRALFATE 1 GM TAB PO SCH ×4 (05:40→21:15)
[2016-06-09] MEDS: MORPHINE SULF INJ 2 MG/ML SYRINGE 1ML IV PRN ×4 (05:41→22:25)
[2016-06-09 06:29] LABS: Basophils # (auto) 0 uL; DEFINITIVE VIEW TRANSMISSION; Eosinophils # (auto) 0 uL; Eosinophils % (auto) 0.2 % (0.0-7.0); Hematocrit 29.5 % (41.0-53.0); Hemoglobin 9.3 g/dL (13.5-17.5); Lymphocytes # (auto) 0.4 uL; Lymphocytes % (auto) 5.1 % (10.0-50.0); Mean Corpuscular Hemoglobin 25.1 pg (28.0-32.0); Mean Corpuscular Hgb Conc. 31.6 g/dL (32.0-36.0); Mean Corpuscular Volume 79.4 fL (80.0-100.0); Mean Platelet Volume 9.1 fL (7.4-10.4); Monocytes # (auto) 0.2 uL; Monocytes % (auto) 3.1 % (0.0-12.0); Neutrophils # (auto) 6.4 uL; Neutrophils % (auto) 91.6 % (37.0-80.0); Platelet Count (auto) 293 10^3/uL (140-450); Red Cell Distribution Width 16.6 % (11.6-16.0); White Blood Cell 6.9 10^3/uL (4.4-10.8)
[2016-06-09 07:35] VITALS: BP 124/68
[2016-06-09 08:01] LABS: Albumin 3.1 g/dL (3.4-5.0); BUN/Creatinine Ratio 37.3; Bilirubin, Total 0.3 mg/dL (0.2-1.0); Calcium 9.1 mg/dL (8.5-10.1); Potassium 4.3 mmol/L (3.5-5.1); Total Protein 6.2 g/dL (6.4-8.2)
[2016-06-09 08:23] VITALS: BP 124/68
[2016-06-09] MEDS: cefTRIAXone 1GM/50ML D5W 50 ML IV SCH (08:58)
[2016-06-09] MEDS: FERROUS SULFATE 325 MG TAB PO SCH ×3 (08:58→17:42)
[2016-06-09] MEDS: PANTOPRAZOLE 40 MG TAB PO SCH (09:38)
[2016-06-09] MEDS: FLUCONAZOLE 100 MG TAB PO SCH (09:38)
[2016-06-09] MEDS: ENOXAPARIN SOD 40 MG/0.4 ML SYRINGE SC SCH (09:38)
[2016-06-09] MEDS: CARVEDILOL 3.125 MG TAB PO SCH ×2 (09:38→21:18)
[2016-06-09] MEDS: ASPirin 81 mg TAB PO SCH (09:38)
[2016-06-09] MEDS: BACLOFEN 10 MG TAB PO SCH ×2 (09:38→21:15)
[2016-06-09] MEDS: DOCUSATE SOD 100 MG CAP PO SCH ×2 (09:39→21:19)
[2016-06-09] MEDS: FUROSEMIDE 40 MG/4 ML VIAL IV SCH (09:39)
[2016-06-09] MEDS: SENNA 8.6 MG TAB PO SCH ×2 (09:39→21:19)
[2016-06-09] MEDS: methylPREDNISolone SOD SUCC 40 MG/ML VL IV SCH ×2 (09:39→21:14)
[2016-06-09] MEDS: POTASSIUM CHL 20 Meq TABLET PO SCH (09:40)
[2016-06-09] MEDS: AZITHROMYCIN 500MG/D5W 250ML 250 ML IV SCH (10:59)
[2016-06-09] MEDS: NITROGLYCERIN 0.2MG/HR TOPICAL PATCH TD SCH (11:13)
[2016-06-09 12:39] VITALS: BP 133/98
[2016-06-09 16:38] VITALS: BP 130/69
[2016-06-09] MEDS: TAMSULOSIN HYDROCHLORIDE 0.4 MG CAP PO SCH (17:42)
[2016-06-09] MEDS: ROPINIROLE HYDROCHLORIDE 1 MG PO SCH (17:45)
[2016-06-09] MEDS: QUEtiapine FUMARATE 100 MG TAB PO SCH (21:18)
[2016-06-09 22:00] VITALS: BP 117/65
[2016-06-09] MEDS: TEMAZEPAM 15 MG CAP PO PRN (22:25)
[2016-06-10] MEDS: IPRATROPIUM BROM 0.5 MG/2.5ML INH SOL NEB SCH ×2 (00:23→05:44)
[2016-06-10] MEDS: ALBUTEROL SULF 2.5 MG/0.5ML(0.5%) NEB SOLN NEB SCH ×2 (00:23→05:44)
[2016-06-10] MEDS: MORPHINE SULF INJ 2 MG/ML SYRINGE 1ML IV PRN ×3 (02:44→10:39)
[2016-06-10] MEDS: SUCRALFATE 1 GM TAB PO SCH ×2 (04:45→12:22)
[2016-06-10] MEDS: OXYCODONE W/ ACETAMINOPHEN 5/325MG TABLET PO SCH (04:46)
[2016-06-10 05:00] VITALS: BP 113/65
[2016-06-10 06:23] LABS: B-Type Natriuretic Peptide 37.9 pg/mL (0-100); Temperature: 20.4 C (20.0-25.0)
[2016-06-10 06:47] LABS: BUN/Creatinine Ratio 33.3; Calcium 8.9 mg/dL (8.5-10.1); Magnesium 2.3 mg/dL (1.6-2.6); Potassium 4.3 mmol/L (3.5-5.1)
[2016-06-10 08:00] VITALS: BP 135/74
[2016-06-10] MEDS: FERROUS SULFATE 325 MG TAB PO SCH ×2 (08:13→12:22)
[2016-06-10] MEDS: HYDROcodone-ACET 5/325MG TAB PO PRN (08:19)
[2016-06-10] MEDS: cefTRIAXone 1GM/50ML D5W 50 ML IV SCH (09:13)
[2016-06-10] MEDS: FUROSEMIDE 40 MG/4 ML VIAL IV SCH (10:00)
[2016-06-10] MEDS: NITROGLYCERIN 0.2MG/HR TOPICAL PATCH TD SCH (10:00)
[2016-06-10 10:08] VITALS: BP 135/74
[2016-06-10] MEDS: methylPREDNISolone SOD SUCC 40 MG/ML VL IV SCH (10:38)
[2016-06-10] MEDS: ENOXAPARIN SOD 40 MG/0.4 ML SYRINGE SC SCH (10:39)
[2016-06-10] MEDS: BACLOFEN 10 MG TAB PO SCH (10:40)
[2016-06-10] MEDS: POTASSIUM CHL 20 Meq TABLET PO SCH (10:40)
[2016-06-10] MEDS: DOCUSATE SOD 100 MG CAP PO SCH (10:40)
[2016-06-10] MEDS: FLUCONAZOLE 100 MG TAB PO SCH (10:40)
[2016-06-10] MEDS: PANTOPRAZOLE 40 MG TAB PO SCH (10:41)
[2016-06-10] MEDS: CARVEDILOL 3.125 MG TAB PO SCH (10:41)
[2016-06-10] MEDS: SENNA 8.6 MG TAB PO SCH (10:41)
[2016-06-10] MEDS: ASPirin 81 mg TAB PO SCH (10:41)
[2016-06-10] MEDS: AZITHROMYCIN 500MG/D5W 250ML 250 ML IV SCH (10:43)
[2016-06-10 11:20] VITALS: BP 146/85
[2016-06-10 12:30] VITALS: BP 141/77
== END 2016-06-10 13:35 | disposition home or self-care (01) | DRG 133 ==
LOC: EDBD 10:40 → ER 10:51 → TELE 10:52 → TELE-CENTR 06-07 14:20
PROVIDERS: ADMIT Internal Medicine; ATTEND Internal Medicine
PROC: 5A09457 Assistance with Respiratory Ventilation, 24-96 Consecutive Hours, Continuous Positive Airway Pressure (ICD-10-PCS; principal; 2016-06-07)
DX: J96.21 Acute and chronic respiratory failure with hypoxia (principal); I50.43 Acute on chronic combined systolic (congestive) and diastolic (congestive) heart failure; J18.9 Pneumonia, unspecified organism; I11.0 Hypertensive heart disease with heart failure; Z99.81 Dependence on supplemental oxygen; J44.0 Chronic obstructive pulmonary disease with (acute) lower respiratory infection; E44.1 Mild protein-calorie malnutrition; J44.1 Chronic obstructive pulmonary disease with (acute) exacerbation; F20.9 Schizophrenia, unspecified; F31.9 Bipolar disorder, unspecified; Z85.46 Personal history of malignant neoplasm of prostate; S99.922A Unspecified injury of left foot, initial encounter; T78.8XXA Other adverse effects, not elsewhere classified, initial encounter; J45.909 Unspecified asthma, uncomplicated; Z82.0 Family history of epilepsy and other diseases of the nervous system; Z83.3 Family history of diabetes mellitus; Z87.891 Personal history of nicotine dependence; Z91.19 Patient's noncompliance with other medical treatment and regimen; F41.9 Anxiety disorder, unspecified; Z81.1 Family history of alcohol abuse and dependence; Z80.9 Family history of malignant neoplasm, unspecified; Z84.89 Family history of other specified conditions; X58.XXXA Exposure to other specified factors, initial encounter; Y92.89 Other specified places as the place of occurrence of the external cause; Y99.8 Other external cause status
CPT/HCPCS: 36415; 36600; 71010; 71020; 71275; 73630; 80048; 80053; 82550; 82805; 83735; 83880; 84443; 84484; 85025; 85379; 85610; 85730; 87040; 87400; 93005; 94640; 94660; 96365; 96375; G0434; J0696; J2405

== ENCOUNTER 2016-07-20 10:17 | Emergency (ER) | payer MEDICAID ==
[~2016-07-20] VITALS: Ht 165.1 cm; Wt 93.9 kg
[2016-07-20] MEDS ORDERED: ONDANSETRON HCL 4 MG/2 ML VIAL IM ONE (10:45)
[2016-07-20] MEDS ORDERED: HYDROmorphone HCL 2 MG/ML VL IM ONE (10:45)
[2016-07-20 11:17] VITALS: BP 144/64
== END 2016-07-20 11:22 | disposition home or self-care (01) ==
LOC: ER 10:17
DX: G89.4 Chronic pain syndrome (principal); M54.2 Cervicalgia; M25.562 Pain in left knee; I11.0 Hypertensive heart disease with heart failure; I50.9 Heart failure, unspecified; J44.9 Chronic obstructive pulmonary disease, unspecified; E07.9 Disorder of thyroid, unspecified; Z87.891 Personal history of nicotine dependence
CPT/HCPCS: 96372; 99284; J1170; J2405

== ENCOUNTER 2016-07-24 17:54 | Inpatient (IN) | payer MEDICAID ==
[~2016-07-24] VITALS: Ht 162.6 cm; Wt 88.4 kg
[2016-07-24 19:33] LABS: Basophils # (auto) 0 uL; DEFINITIVE VIEW TRANSMISSION; Eosinophils # (auto) 0 uL; Eosinophils % (auto) 0.1 % (0.0-7.0); Hematocrit 34.2 % (41.0-53.0); Hemoglobin 10.8 g/dL (13.5-17.5); Lymphocytes # (auto) 0.8 uL; Lymphocytes % (auto) 11.3 % (10.0-50.0); Mean Corpuscular Hemoglobin 24.8 pg (28.0-32.0); Mean Corpuscular Hgb Conc. 31.6 g/dL (32.0-36.0); Mean Corpuscular Volume 78.4 fL (80.0-100.0); Mean Platelet Volume 8.8 fL (7.4-10.4); Monocytes # (auto) 0.9 uL; Monocytes % (auto) 12.9 % (0.0-12.0); Neutrophils # (auto) 5.1 uL; Neutrophils % (auto) 75.7 % (37.0-80.0); Platelet Count (auto) 248 10^3/uL (140-450); Red Cell Distribution Width 18.9 % (11.6-16.0); White Blood Cell 6.8 10^3/uL (4.4-10.8)
[2016-07-24 19:55] LABS: Albumin 3.7 g/dL (3.4-5.0); Alkaline Phosphatase 89 U/L (45-117); Anion Gap 7 (5-15); Aspartate Aminotransferase 22 U/L (15-37); BUN/Creatinine Ratio 34.1; Bilirubin, Total 0.3 mg/dL (0.2-1.0); Blood Urea Nitrogen 31 mg/dL (7-18); Calcium 9.3 mg/dL (8.5-10.1); Carbon Dioxide 39 mmol/L (21-32); Chloride 94 mmol/L (98-107); GFR African American 111 mL/min; GFR Non-African American 92 mL/min; Glucose 106 mg/dL (74-106); Potassium 3.6 mmol/L (3.5-5.1); Sodium 140 mmol/L (136-145); Total Protein 7.5 g/dL (6.4-8.2)
[2016-07-24 20:47] LABS: Platelet Estimate Adequate
[2016-07-24 20:48] LABS: Anisocytosis Moderate; Hypochromia Moderate; Stomatocytes Moderate
[2016-07-24] MEDS ORDERED: HYDROcodone-ACET 10/325MG TAB PO ONE (21:30)
[2016-07-24] MEDS ORDERED: ONDANSETRON HCL 4 MG/2 ML VIAL IV PRN (23:00)
[2016-07-24] MEDS ORDERED: MORPHINE SULF INJ 2 MG/ML SYRINGE 1ML IV PRN (23:00)
[2016-07-24] MEDS ORDERED: DOCUSATE SOD 100 MG CAP PO PRN (23:00)
[2016-07-24] MEDS ORDERED: ACETAMINOPHEN 325 MG TAB PO PRN (23:00)
[2016-07-24] MEDS ORDERED: TEMAZEPAM 15 MG CAP PO PRN (23:00)
[2016-07-24] MEDS ORDERED: ALBUTEROL SULF 2.5 MG/0.5ML(0.5%) NEB SOLN NEB ONE (23:30)
[2016-07-24] MEDS ORDERED: IPRATROPIUM BROM 0.5 MG/2.5ML INH SOL NEB ONE (23:30)
[2016-07-24] MEDS ORDERED: ONDANSETRON HCL 4 MG/2 ML VIAL IV ONE (23:30)
[2016-07-24] MEDS ORDERED: HYDROmorphone HCL 2 MG/ML VL IV ONE (23:30)
[2016-07-25 00:50] VITALS: BP 111/75
[2016-07-25] MEDS ORDERED: MULTLIQ36 OR (02:52)
[2016-07-25] MEDS ORDERED: IPR002IS HHN (02:52)
[2016-07-25] MEDS ORDERED: ASPI-231 PO (02:52)
[2016-07-25] MEDS ORDERED: ALBUTEROL SULF 2.5 MG/0.5ML(0.5%) NEB SOLN ONE (03:25)
[2016-07-25] MEDS ORDERED: ALBUTEROL SULF 2.5 MG/0.5ML(0.5%) NEB SOLN NEB PRN (03:30)
[2016-07-25 03:40] VITALS: BP 111/75
[2016-07-25 05:42] LABS: DEFINITIVE VIEW TRANSMISSION; Hematocrit 31.1 % (41.0-53.0); Hemoglobin 9.6 g/dL (13.5-17.5); Mean Corpuscular Hemoglobin 24.6 pg (28.0-32.0); Mean Corpuscular Hgb Conc. 30.8 g/dL (32.0-36.0); Mean Corpuscular Volume 80.1 fL (80.0-100.0); Mean Platelet Volume 8.4 fL (7.4-10.4); Platelet Count (auto) 219 10^3/uL (140-450); Red Cell Distribution Width 18.7 % (11.6-16.0); White Blood Cell 4.6 10^3/uL (4.4-10.8)
[2016-07-25 05:51] LABS: Metamyelocytes % 0; Myelocytes % 0; Promyelocytes % 0; Reactive Lymphocytes 0
[2016-07-25 05:57] LABS: INR 1.04 (0.9-1.15); Partial Thromboplastin Time 28.5 sec (22.64-33.71); Prothrombin Time 11.2 sec (9.37-12.3)
[2016-07-25 06:00] VITALS: BP 103/57
[2016-07-25] MEDS ORDERED: ALBUTEROL SULF 2.5 MG/0.5ML(0.5%) NEB SOLN NEB SCH (06:00)
[2016-07-25 06:05] LABS: B-Type Natriuretic Peptide 89.43 pg/mL (0-100)
[2016-07-25 06:11] LABS: Temperature: 23.3 C (20.0-25.0)
[2016-07-25 06:12] LABS: Albumin 3.1 g/dL (3.4-5.0); Alkaline Phosphatase 73 U/L (45-117); Anion Gap 7 (5-15); Aspartate Aminotransferase 13 U/L (15-37); BUN/Creatinine Ratio 29.6; Bilirubin, Total 0.2 mg/dL (0.2-1.0); Blood Urea Nitrogen 24 mg/dL (7-18); Calcium 8.2 mg/dL (8.5-10.1); Carbon Dioxide 40 mmol/L (21-32); Chloride 94 mmol/L (98-107); GFR African American 127 mL/min; GFR Non-African American 105 mL/min; Glucose 125 mg/dL (74-106); Potassium 3.3 mmol/L (3.5-5.1); Sodium 141 mmol/L (136-145); Total Protein 6.2 g/dL (6.4-8.2)
[2016-07-25] MEDS: SODIUM CHLOR 0.9% PF (SALINE LOCK) 10ML VIAL IV SCH ×2 (06:13→14:00)
[2016-07-25] MEDS: IPRATROPIUM BROM 0.5 MG/2.5ML INH SOL NEB SCH ×2 (07:02→11:34)
[2016-07-25 07:50] LABS: Platelet Estimate Adequate
[2016-07-25 07:52] LABS: Hypochromia Moderate
[2016-07-25 08:00] VITALS: BP 107/57
[2016-07-25 08:22] LABS: Anisocytosis Moderate; Ovalocytes FEW; Stomatocytes Moderate; Tear Drop Cells FEW
[2016-07-25 08:34] LABS: Urine RBC None Seen /hpf (0 - 3)
[2016-07-25 08:47] LABS: Urine Bilirubin Negative (Negative); Urine Blood Negative /uL (Negative); Urine Color Yellow (Yellow); Urine Glucose Normal (Normal); Urine Ketone Negative (Negative); Urine Mucus FEW (None Seen); Urine Nitrite Negative (Negative); Urine Urobilinogen Normal (Negative)
[2016-07-25] MEDS ORDERED: FAMOTIDINE 20 MG TAB PO SCH (10:00)
[2016-07-25] MEDS: HYDROcodone-ACET 5/325MG TAB PO PRN ×2 (10:03→14:12)
[2016-07-25] MEDS ORDERED: MORPHINE SULFATE 4 MG/ML SYRG IM ONE (16:15)
[2016-07-25 16:48] VITALS: BP 107/57
== END 2016-07-25 19:06 | disposition home or self-care (01) | DRG 347 ==
LOC: ER 17:59 → TELE-EAST 18:00
PROVIDERS: ADMIT Emergency Medicine; ATTEND Internal Medicine
DX: M54.2 Cervicalgia (principal); J96.10 Chronic respiratory failure, unspecified whether with hypoxia or hypercapnia; I11.0 Hypertensive heart disease with heart failure; I50.32 Chronic diastolic (congestive) heart failure; J44.9 Chronic obstructive pulmonary disease, unspecified; D63.8 Anemia in other chronic diseases classified elsewhere; E66.9 Obesity, unspecified; F20.9 Schizophrenia, unspecified; R29.6 Repeated falls; F31.9 Bipolar disorder, unspecified; G44.309 Post-traumatic headache, unspecified, not intractable; M19.90 Unspecified osteoarthritis, unspecified site; W01.0XXA Fall on same level from slipping, tripping and stumbling without subsequent striking against object, initial encounter; F41.9 Anxiety disorder, unspecified; G89.29 Other chronic pain; M47.899 Other spondylosis, site unspecified; Y93.89 Activity, other specified; Z68.33 Body mass index [BMI] 33.0-33.9, adult; Z87.891 Personal history of nicotine dependence; Y92.89 Other specified places as the place of occurrence of the external cause; Y99.8 Other external cause status
CPT/HCPCS: 36415; 70450; 71010; 72125; 80053; 81001; 83880; 84484; 85007; 85025; 85027; 85610; 85730; 93005; 93306; 94640; 96374; 96375; J2405

== ENCOUNTER 2016-07-28 04:31 | Inpatient (IN) | payer MEDICAID ==
[~2016-07-28] VITALS: Ht 157.5 cm; Wt 83.0 kg
[~2016-07-28 04:31] MED LIST changes: +ASPI-231 PO; -CARV3.1213 OR; -DOCU100T15 PO; -FER325T PO; -FLUC100T3 PO; +IPR002IS HHN; +MULTLIQ36 OR; -PANT40TA2 PO; -PRED-188 PO; -QUET400T PO; -SENN-58 PO; -SUCR1TAB PO
[2016-07-28 05:23] LABS: Urine RBC None Seen /hpf (0 - 3)
[2016-07-28 05:27] LABS: Basophils # (auto) 0 uL; Basophils % (auto) 0.2 % (0.0-2.0); DEFINITIVE VIEW TRANSMISSION; Eosinophils # (auto) 0.1 uL; Eosinophils % (auto) 1.7 % (0.0-7.0); Hematocrit 34.5 % (41.0-53.0); Hemoglobin 10.8 g/dL (13.5-17.5); Lymphocytes # (auto) 1.1 uL; Lymphocytes % (auto) 21.1 % (10.0-50.0); Mean Corpuscular Hemoglobin 25.1 pg (28.0-32.0); Mean Corpuscular Hgb Conc. 31.4 g/dL (32.0-36.0); Mean Corpuscular Volume 80.1 fL (80.0-100.0); Mean Platelet Volume 8.3 fL (7.4-10.4); Monocytes # (auto) 0.6 uL; Monocytes % (auto) 10.7 % (0.0-12.0); Neutrophils # (auto) 3.5 uL; Neutrophils % (auto) 66.3 % (37.0-80.0); Platelet Count (auto) 276 10^3/uL (140-450); Red Cell Distribution Width 19.4 % (11.6-16.0); White Blood Cell 5.2 10^3/uL (4.4-10.8)
[2016-07-28 05:38] LABS: Urine Bilirubin Negative (Negative); Urine Blood Negative /uL (Negative); Urine Color Yellow (Yellow); Urine Glucose Normal (Normal); Urine Hyaline Cast FEW /lpf (0 - 2); Urine Ketone Negative (Negative); Urine Mucus FEW (None Seen); Urine Nitrite Negative (Negative); Urine Urobilinogen Normal (Negative); Urine pH 5.5 (5.0-8.0)
[2016-07-28 05:42] LABS: Partial Thromboplastin Time 22.9 sec (22.64-33.71); Prothrombin Time 10.8 sec (9.37-12.3)
[2016-07-28 05:45] LABS: Albumin 3.6 g/dL (3.4-5.0); Anion Gap 10 (5-15); Aspartate Aminotransferase 18 U/L (15-37); BUN/Creatinine Ratio 16.8; Blood Urea Nitrogen 29 mg/dL (7-18); Calcium 8.3 mg/dL (8.5-10.1); Carbon Dioxide 36 mmol/L (21-32); Chloride 95 mmol/L (98-107); GFR African American 53 mL/min; GFR Non-African American 44 mL/min; Glucose 86 mg/dL (74-106); Magnesium 2.4 mg/dL (1.6-2.6); Potassium 3.1 mmol/L (3.5-5.1); Sodium 141 mmol/L (136-145)
[2016-07-28 05:50] LABS: Alkaline Phosphatase 73 U/L (45-117); Bilirubin, Total 0.1 mg/dL (0.2-1.0); Total Protein 6.6 g/dL (6.4-8.2)
[2016-07-28] MEDS ORDERED: cefTRIAXone 1GM/50ML D5W 50 ML IV ONE (10:45)
[2016-07-28] MEDS ORDERED: POTASSIUM CHL 20 Meq TABLET PO ONE (10:45)
[2016-07-28] MEDS ORDERED: DOCUSATE SOD 100 MG CAP PO PRN (11:00)
[2016-07-28] MEDS ORDERED: ACETAMINOPHEN 325 MG TAB PO PRN (11:00)
[2016-07-28] MEDS ORDERED: IBUPROFEN 800 MG TAB PO PRN (11:00)
[2016-07-28] MEDS ORDERED: BACLOFEN 10 MG TAB PO PRN (11:00)
[2016-07-28] MEDS ORDERED: LORazepam 2MG/ML-1ML VIAL IV PRN (11:00)
[2016-07-28] MEDS ORDERED: ONDANSETRON HCL 4 MG/2 ML VIAL IV PRN (11:00)
[2016-07-28] MEDS: ASPirin-EC 81 mg tab PO SCH (11:39)
[2016-07-28] MEDS: FUROSEMIDE 20 MG TAB PO SCH (11:39)
[2016-07-28] MEDS: FAMOTIDINE 20 MG TAB PO SCH ×2 (11:40→21:54)
[2016-07-28] MEDS: IPRATROPIUM BROM 0.5 MG/2.5ML INH SOL NEB SCH ×2 (12:08→19:29)
[2016-07-28] MEDS: ALBUTEROL SULF 2.5 MG/0.5ML(0.5%) NEB SOLN NEB SCH ×2 (12:08→19:29)
[2016-07-28 12:40] VITALS: BP 128/58
[2016-07-28 14:00] VITALS: BP 100/65
[2016-07-28] MEDS: SODIUM CHLOR 0.9% PF (SALINE LOCK) 10ML VIAL IV SCH ×2 (15:25→22:08)
[2016-07-28] MEDS: HYDROcodone-ACET 10/325MG TAB PO PRN (16:03)
[2016-07-28 17:00] VITALS: BP 137/69
[2016-07-28] MEDS ORDERED: PERCOT PO (17:37)
[2016-07-28] MEDS ORDERED: POTA-167 PO (17:37)
[2016-07-28] MEDS ORDERED: FURO40TA4 PO (17:37)
[2016-07-28] MEDS ORDERED: FLUR30CA12 PO (17:37)
[2016-07-28] MEDS ORDERED: OME20T PO (17:37)
[2016-07-28] MEDS ORDERED: CARV3.1240 PO (17:37)
[2016-07-28] MEDS ORDERED: ROPI2TAB31 PO (17:37)
[2016-07-28] MEDS ORDERED: TAMS0.4C36 PO (17:37)
[2016-07-28] MEDS ORDERED: BACL10TA PO (17:37)
[2016-07-28] MEDS ORDERED: IBU800T PO (17:37)
[2016-07-28] MEDS ORDERED: MORP1TAB12 PO (17:37)
[2016-07-28] MEDS ORDERED: DIVA500T59 PO (17:37)
[2016-07-28] MEDS: TAMSULOSIN HYDROCHLORIDE 0.4 MG CAP PO SCH (18:00)
[2016-07-28 20:00] VITALS: BP 124/65
[2016-07-28] MEDS: MORPHINE SULF INJ 2 MG/ML SYRINGE 1ML IV PRN (20:36)
[2016-07-28] MEDS: TEMAZEPAM 15 MG CAP PO PRN (21:51)
[2016-07-28 22:00] VITALS: BP 124/65
[2016-07-29] MEDS: MORPHINE SULF INJ 2 MG/ML SYRINGE 1ML IV PRN ×5 (01:51→23:16)
[2016-07-29 05:30] VITALS: BP 112/73
[2016-07-29] MEDS: HYDROcodone-ACET 10/325MG TAB PO PRN ×3 (05:43→16:39)
[2016-07-29] MEDS: SODIUM CHLOR 0.9% PF (SALINE LOCK) 10ML VIAL IV SCH ×3 (05:44→21:22)
[2016-07-29] MEDS: IPRATROPIUM BROM 0.5 MG/2.5ML INH SOL NEB SCH ×4 (06:11→20:08)
[2016-07-29] MEDS: ALBUTEROL SULF 2.5 MG/0.5ML(0.5%) NEB SOLN NEB SCH ×4 (06:11→20:08)
[2016-07-29 07:16] LABS: Basophils # (auto) 0 uL; Basophils % (auto) 0.1 % (0.0-2.0); DEFINITIVE VIEW TRANSMISSION; Eosinophils # (auto) 0 uL; Eosinophils % (auto) 0.1 % (0.0-7.0); Hematocrit 32.7 % (41.0-53.0); Hemoglobin 10.4 g/dL (13.5-17.5); Lymphocytes # (auto) 1.4 uL; Mean Corpuscular Hemoglobin 24.9 pg (28.0-32.0); Mean Corpuscular Hgb Conc. 31.7 g/dL (32.0-36.0); Mean Corpuscular Volume 78.6 fL (80.0-100.0); Mean Platelet Volume 8.4 fL (7.4-10.4); Monocytes # (auto) 1.2 uL; Neutrophils # (auto) 4.7 uL; Neutrophils % (auto) 64.8 % (37.0-80.0); Platelet Count (auto) 307 10^3/uL (140-450); Red Cell Distribution Width 19.4 % (11.6-16.0); White Blood Cell 7.2 10^3/uL (4.4-10.8)
[2016-07-29 07:39] LABS: Albumin 3.2 g/dL (3.4-5.0); BUN/Creatinine Ratio 27.6; Bilirubin, Total 0.2 mg/dL (0.2-1.0); Calcium 8.5 mg/dL (8.5-10.1); Potassium 3.9 mmol/L (3.5-5.1); Total Protein 6.5 g/dL (6.4-8.2)
[2016-07-29 08:36] VITALS: BP 113/56
[2016-07-29] MEDS: cefTRIAXone 1GM/50ML D5W 50 ML IV SCH (08:36)
[2016-07-29] MEDS: ASPirin-EC 81 mg tab PO SCH (08:56)
[2016-07-29] MEDS: POTASSIUM CHL 20 Meq TABLET PO SCH (08:56)
[2016-07-29] MEDS: MULTIPLE VITAMIN TAB PO SCH (08:56)
[2016-07-29] MEDS: FAMOTIDINE 20 MG TAB PO SCH ×2 (08:56→21:21)
[2016-07-29] MEDS: FUROSEMIDE 20 MG TAB PO SCH (08:56)
[2016-07-29] MEDS ORDERED: PATIENTS OWN MEDICATION PO SCH ×2 (10:00)
[2016-07-29 12:31] VITALS: BP 119/70
[2016-07-29 16:50] VITALS: BP 116/78
[2016-07-29] MEDS: TAMSULOSIN HYDROCHLORIDE 0.4 MG CAP PO SCH (18:18)
[2016-07-29] MEDS: TEMAZEPAM 15 MG CAP PO PRN (21:21)
[2016-07-29 22:00] VITALS: BP_SYST 107; BP_SYST 125; BP_DIAS 78
[2016-07-30] MEDS: ALBUTEROL SULF 2.5 MG/0.5ML(0.5%) NEB SOLN NEB SCH ×3 (00:54→11:36)
[2016-07-30] MEDS: IPRATROPIUM BROM 0.5 MG/2.5ML INH SOL NEB SCH ×3 (00:54→11:36)
[2016-07-30] MEDS: MORPHINE SULF INJ 2 MG/ML SYRINGE 1ML IV PRN ×3 (03:29→10:36)
[2016-07-30] MEDS: SODIUM CHLOR 0.9% PF (SALINE LOCK) 10ML VIAL IV SCH (05:28)
[2016-07-30 05:31] VITALS: BP 112/68
[2016-07-30 07:28] LABS: DEFINITIVE VIEW TRANSMISSION; Hematocrit 31.5 % (41.0-53.0); Mean Corpuscular Hemoglobin 24.8 pg (28.0-32.0); Mean Corpuscular Hgb Conc. 31.7 g/dL (32.0-36.0); Mean Corpuscular Volume 78.4 fL (80.0-100.0); Mean Platelet Volume 8.6 fL (7.4-10.4); Platelet Count (auto) 296 10^3/uL (140-450); White Blood Cell 4.7 10^3/uL (4.4-10.8)
[2016-07-30 07:33] LABS: Red Cell Distribution Width 20.3 % (11.6-16.0)
[2016-07-30 07:34] LABS: Metamyelocytes % 0; Myelocytes % 0; Promyelocytes % 0; Reactive Lymphocytes 0
[2016-07-30 07:52] LABS: Albumin 3.1 g/dL (3.4-5.0); BUN/Creatinine Ratio 35.2; Bilirubin, Total 0.2 mg/dL (0.2-1.0); Calcium 8.9 mg/dL (8.5-10.1); Potassium 3.6 mmol/L (3.5-5.1)
[2016-07-30 08:40] LABS: Anisocytosis Slight; Platelet Estimate Adequate
[2016-07-30 08:41] LABS: Hypochromia Moderate; Microcytosis Slight; Ovalocytes FEW; Stomatocytes Few
[2016-07-30 09:00] VITALS: BP 101/62
[2016-07-30] MEDS: cefTRIAXone 1GM/50ML D5W 50 ML IV SCH (09:00)
[2016-07-30] MEDS: POTASSIUM CHL 20 Meq TABLET PO SCH (10:02)
[2016-07-30] MEDS: MULTIPLE VITAMIN TAB PO SCH (10:02)
[2016-07-30] MEDS: FAMOTIDINE 20 MG TAB PO SCH (10:02)
[2016-07-30] MEDS: FUROSEMIDE 20 MG TAB PO SCH (10:03)
[2016-07-30] MEDS: ASPirin-EC 81 mg tab PO SCH (10:04)
== END 2016-07-30 11:45 | disposition home or self-care (01) | DRG 52 ==
LOC: ER 04:31 → EDBD 04:31 → OVERFLOW 04:32 → WEST WING 12:42
PROVIDERS: ADMIT Internal Medicine; ATTEND Internal Medicine
DX: G92 Toxic encephalopathy (principal); J96.11 Chronic respiratory failure with hypoxia; I50.32 Chronic diastolic (congestive) heart failure; I13.0 Hypertensive heart and chronic kidney disease with heart failure and stage 1 through stage 4 chronic kidney disease, or unspecified chronic kidney disease; N39.0 Urinary tract infection, site not specified; N18.3 Chronic kidney disease, stage 3 (moderate); J44.9 Chronic obstructive pulmonary disease, unspecified; F41.9 Anxiety disorder, unspecified; J45.909 Unspecified asthma, uncomplicated; D50.9 Iron deficiency anemia, unspecified; E83.51 Hypocalcemia; E87.6 Hypokalemia; E03.9 Hypothyroidism, unspecified; E66.9 Obesity, unspecified; F31.9 Bipolar disorder, unspecified; G40.909 Epilepsy, unspecified, not intractable, without status epilepticus; M19.90 Unspecified osteoarthritis, unspecified site; W19.XXXA Unspecified fall, initial encounter; Z87.891 Personal history of nicotine dependence; Z99.81 Dependence on supplemental oxygen; Z68.33 Body mass index [BMI] 33.0-33.9, adult
CPT/HCPCS: 36415; 70450; 71010; 72125; 80053; 80307; 80320; 81001; 82962; 83540; 83735; 84484; 85007; 85025; 85027; 85610; 85730; 87081; 87086; 87088; 87186; 93005; 94640; 96365; 96366; 97116; 97530; 99291; J0696

== ENCOUNTER 2016-08-01 16:42 | Inpatient (IN) | payer MEDICAID ==
[~2016-08-01] VITALS: Ht 165.1 cm; Wt 91.3 kg
[~2016-08-01 16:42] MED LIST changes: -ASPI-231 PO; +BACL10TA PO; -BACL20TA PO; +CARV3.1240 PO; +FURO40TA4 PO; +MORP1TAB12 PO; -NOR5T PO
[2016-08-01] MEDS ORDERED: FLUR30CA12 PO (17:27)
[2016-08-01] MEDS ORDERED: ROPI2TAB4 PO (17:27)
[2016-08-01] MEDS ORDERED: IBU800T PO (17:27)
[2016-08-01] MEDS ORDERED: HYDROCODON-ACETAMINOPHN PO (17:27)
[2016-08-01] MEDS ORDERED: ASPI81TA10 PO (17:27)
[2016-08-01 17:42] LABS: Basophils # (auto) 0 uL; Basophils % (auto) 0.3 % (0.0-2.0); DEFINITIVE VIEW TRANSMISSION; Eosinophils # (auto) 0 uL; Eosinophils % (auto) 0.4 % (0.0-7.0); Hematocrit 32.3 % (41.0-53.0); Hemoglobin 10.2 g/dL (13.5-17.5); Lymphocytes # (auto) 0.9 uL; Lymphocytes % (auto) 7.1 % (10.0-50.0); Mean Corpuscular Hemoglobin 24.8 pg (28.0-32.0); Mean Corpuscular Hgb Conc. 31.4 g/dL (32.0-36.0); Mean Corpuscular Volume 79.1 fL (80.0-100.0); Mean Platelet Volume 8.8 fL (7.4-10.4); Monocytes # (auto) 0.8 uL; Monocytes % (auto) 6.4 % (0.0-12.0); Neutrophils # (auto) 10.6 uL; Neutrophils % (auto) 85.8 % (37.0-80.0); Platelet Count (auto) 355 10^3/uL (140-450); Red Cell Distribution Width 19.9 % (11.6-16.0); White Blood Cell 12.3 10^3/uL (4.4-10.8)
[2016-08-01 17:55] LABS: Albumin 3.1 g/dL (3.4-5.0); Anion Gap 15 (5-15); Aspartate Aminotransferase 11 U/L (15-37); BUN/Creatinine Ratio 16.7; Blood Urea Nitrogen 14 mg/dL (7-18); Calcium 8.2 mg/dL (8.5-10.1); Carbon Dioxide 22 mmol/L (21-32); Chloride 104 mmol/L (98-107); GFR African American 122 mL/min; GFR Non-African American 101 mL/min; Glucose 140 mg/dL (74-106); Magnesium 1.9 mg/dL (1.6-2.6); Potassium 3.4 mmol/L (3.5-5.1); Sodium 141 mmol/L (136-145)
[2016-08-01 17:58] LABS: Alkaline Phosphatase 61 U/L (45-117); Bilirubin, Total < 0.1 mg/dL (0.2-1.0); Total Protein 6.1 g/dL (6.4-8.2)
[2016-08-01] MEDS ORDERED: ALBUTEROL SULFATE 90 MCG IN PRN (19:45)
[2016-08-01] MEDS ORDERED: ASPirin-EC 81 mg tab PO ONE (20:00)
[2016-08-01] MEDS ORDERED: ACETAMINOPHEN 325 MG TAB PO PRN (20:00)
[2016-08-01] MEDS ORDERED: MORPHINE SULF INJ 2 MG/ML SYRINGE 1ML IV PRN (20:00)
[2016-08-01] MEDS ORDERED: DOCUSATE SOD 100 MG CAP PO PRN (20:00)
[2016-08-01] MEDS ORDERED: METOCLOPRAMIDE HCL 5MG/ml INJ 2ml VIAL IV PRN (20:00)
[2016-08-01] MEDS ORDERED: NITROGLYCERIN 0.4 MG SL TAB SL PRN (20:00)
[2016-08-01] MEDS: ONDANSETRON HCL 4 MG/2 ML VIAL IV PRN ×2 (20:06→20:51)
[2016-08-01] MEDS ORDERED: TAMSULOSIN HYDROCHLORIDE 0.4 MG CAP PO ONE (20:15)
[2016-08-01] MEDS ORDERED: DIVALPROEX SODIUM 1500 MG PO SCH (22:00)
[2016-08-01] MEDS: ROPINIROLE HYDROCHLORIDE 1 MG PO SCH (22:00)
[2016-08-01] MEDS ORDERED: FLURAZEPAM HCL 30 MG PO SCH (22:00)
[2016-08-01] MEDS: MORPHINE SULF 15mg ER tab PO SCH (22:33)
[2016-08-01] MEDS: BACLOFEN 10 MG TAB PO SCH (22:33)
[2016-08-01] MEDS: LEVETIRACETAM 500 MG TAB PO SCH (22:34)
[2016-08-01] MEDS: CARVEDILOL 3.125 MG TAB PO SCH (22:35)
[2016-08-01 23:18] VITALS: BP 132/78
[2016-08-02] MEDS: TEMAZEPAM 15 MG CAP PO PRN ×3 (00:42→22:45)
[2016-08-02] MEDS: ALBUTEROL SULF 2.5 MG/0.5ML(0.5%) NEB SOLN NEB SCH ×4 (04:35→19:11)
[2016-08-02 04:59] VITALS: BP 101/60
[2016-08-02 05:54] LABS: Basophils # (auto) 0 uL; Basophils % (auto) 0.4 % (0.0-2.0); DEFINITIVE VIEW TRANSMISSION; Eosinophils # (auto) 0.1 uL; Eosinophils % (auto) 0.9 % (0.0-7.0); Hemoglobin 9.9 g/dL (13.5-17.5); Lymphocytes # (auto) 1.9 uL; Lymphocytes % (auto) 19.6 % (10.0-50.0); Mean Corpuscular Hemoglobin 25.1 pg (28.0-32.0); Mean Corpuscular Hgb Conc. 31.8 g/dL (32.0-36.0); Mean Platelet Volume 8.1 fL (7.4-10.4); Monocytes # (auto) 0.6 uL; Monocytes % (auto) 6.5 % (0.0-12.0); Neutrophils # (auto) 7.1 uL; Neutrophils % (auto) 72.6 % (37.0-80.0); Platelet Count (auto) 339 10^3/uL (140-450); White Blood Cell 9.7 10^3/uL (4.4-10.8)
[2016-08-02 06:08] LABS: Albumin 2.9 g/dL (3.4-5.0); Calcium 8.5 mg/dL (8.5-10.1); Potassium 3.3 mmol/L (3.5-5.1)
[2016-08-02 06:18] LABS: BUN/Creatinine Ratio 18.3; Bilirubin, Total 0.3 mg/dL (0.2-1.0); Total Protein 5.9 g/dL (6.4-8.2)
[2016-08-02 08:34] LABS: Anisocytosis Slight; Hypochromia Slight; Platelet Estimate Adequate
[2016-08-02 10:12] VITALS: BP 121/55
[2016-08-02] MEDS: LEVETIRACETAM 500 MG TAB PO SCH ×2 (11:03→22:04)
[2016-08-02] MEDS: TAMSULOSIN HYDROCHLORIDE 0.4 MG CAP PO SCH (11:04)
[2016-08-02] MEDS: POTASSIUM CHL 20 Meq TABLET PO SCH (11:04)
[2016-08-02] MEDS: BACLOFEN 10 MG TAB PO SCH ×2 (11:05→22:03)
[2016-08-02] MEDS: CARVEDILOL 3.125 MG TAB PO SCH ×2 (11:05→22:04)
[2016-08-02] MEDS: MORPHINE SULF 15mg ER tab PO SCH ×2 (11:05→22:05)
[2016-08-02] MEDS: ASPirin-EC 81 mg tab PO SCH (11:06)
[2016-08-02] MEDS: FUROSEMIDE 20 MG TAB PO SCH (11:08)
[2016-08-02] MEDS: LORazepam 2MG/ML-1ML VIAL IV PRN (13:16)
[2016-08-02] MEDS ORDERED: LEVETIRACETAM INJ 1,000 MG in SODIUM CHL 0.9% 100 ML IV ONE (14:00)
[2016-08-02] MEDS: MORPHINE SULF INJ 2 MG/ML SYRINGE 1ML IV PRN ×2 (14:44→21:18)
[2016-08-02 14:50] VITALS: BP 137/74
[2016-08-02 17:35] VITALS: BP 106/58
[2016-08-02] MEDS ORDERED: ROPINIROLE HYDROCHLORIDE PO SCH (18:00)
[2016-08-02 22:00] VITALS: BP 94/63
[2016-08-02] MEDS: ROPINIROLE HYDROCHLORIDE 1 MG PO SCH (22:00)
[2016-08-03] MEDS: ALBUTEROL SULF 2.5 MG/0.5ML(0.5%) NEB SOLN NEB SCH ×4 (00:07→19:54)
[2016-08-03] MEDS: MORPHINE SULF INJ 2 MG/ML SYRINGE 1ML IV PRN ×2 (02:30→19:54)
[2016-08-03 05:00] VITALS: BP 101/47
[2016-08-03 09:03] VITALS: BP 100/67
[2016-08-03] MEDS: LEVETIRACETAM 500 MG TAB PO SCH ×2 (10:40→21:23)
[2016-08-03] MEDS: CARVEDILOL 3.125 MG TAB PO SCH ×2 (10:40→21:22)
[2016-08-03] MEDS: POTASSIUM CHL 20 Meq TABLET PO SCH (10:40)
[2016-08-03] MEDS: FUROSEMIDE 20 MG TAB PO SCH (10:41)
[2016-08-03] MEDS: MORPHINE SULF 15mg ER tab PO SCH ×2 (10:41→21:23)
[2016-08-03] MEDS: ASPirin-EC 81 mg tab PO SCH (10:41)
[2016-08-03] MEDS: BACLOFEN 10 MG TAB PO SCH ×2 (10:42→21:23)
[2016-08-03] MEDS: TAMSULOSIN HYDROCHLORIDE 0.4 MG CAP PO SCH (10:46)
[2016-08-03 13:00] VITALS: BP 118/79
[2016-08-03] MEDS: LORazepam 2MG/ML-1ML VIAL IV PRN (14:49)
[2016-08-03] MEDS ORDERED: LORazepam 2MG/ML-1ML VIAL IV ONE (14:50)
[2016-08-03] MEDS ORDERED: PHENYTOIN IV DILANTIN 1,000 MG in SODIUM CHL 0.9% 250 ML IV ONE (15:00)
[2016-08-03] MEDS ORDERED: PHENYTOIN SODIUM 50 MG/ML 2ML VIAL IV ONE (15:15)
[2016-08-03] MEDS ORDERED: LORazepam 2MG/ML-1ML VIAL IV PRN (18:00)
[2016-08-03 20:00] VITALS: BP 105/56
[2016-08-03] MEDS: ROPINIROLE HYDROCHLORIDE 1 MG PO SCH (21:21)
[2016-08-04] MEDS: ALBUTEROL SULF 2.5 MG/0.5ML(0.5%) NEB SOLN NEB SCH ×4 (00:30→18:50)
[2016-08-04 04:00] VITALS: BP 115/71
[2016-08-04] MEDS: MORPHINE SULF INJ 2 MG/ML SYRINGE 1ML IV PRN ×2 (04:55→18:22)
[2016-08-04 04:56] LABS: Basophils # (auto) 0 uL; Basophils % (auto) 0.1 % (0.0-2.0); DEFINITIVE VIEW TRANSMISSION; Eosinophils # (auto) 0.1 uL; Eosinophils % (auto) 0.7 % (0.0-7.0); Hematocrit 32.6 % (41.0-53.0); Hemoglobin 10.3 g/dL (13.5-17.5); Lymphocytes # (auto) 1.8 uL; Lymphocytes % (auto) 15.6 % (10.0-50.0); Mean Corpuscular Hgb Conc. 31.7 g/dL (32.0-36.0); Mean Platelet Volume 8.6 fL (7.4-10.4); Monocytes # (auto) 1.1 uL; Monocytes % (auto) 9.9 % (0.0-12.0); Neutrophils # (auto) 8.5 uL; Neutrophils % (auto) 73.7 % (37.0-80.0); Platelet Count (auto) 361 10^3/uL (140-450); Red Cell Distribution Width 19.9 % (11.6-16.0); White Blood Cell 11.5 10^3/uL (4.4-10.8)
[2016-08-04 05:09] LABS: Calcium 8.7 mg/dL (8.5-10.1); Potassium 4.2 mmol/L (3.5-5.1)
[2016-08-04 08:00] VITALS: BP 117/42
[2016-08-04] MEDS: HYDROcodone-ACET 5/325MG TAB PO PRN ×2 (08:20→17:14)
[2016-08-04] MEDS: LEVETIRACETAM 500 MG TAB PO SCH ×2 (09:47→21:56)
[2016-08-04] MEDS: BACLOFEN 10 MG TAB PO SCH ×2 (09:47→21:56)
[2016-08-04] MEDS: ASPirin-EC 81 mg tab PO SCH (09:47)
[2016-08-04] MEDS: TAMSULOSIN HYDROCHLORIDE 0.4 MG CAP PO SCH (09:47)
[2016-08-04] MEDS: POTASSIUM CHL 20 Meq TABLET PO SCH (09:47)
[2016-08-04] MEDS: CARVEDILOL 3.125 MG TAB PO SCH ×2 (09:48→21:56)
[2016-08-04] MEDS: FUROSEMIDE 20 MG TAB PO SCH (09:48)
[2016-08-04] MEDS: MORPHINE SULF 15mg ER tab PO SCH (09:48)
[2016-08-04] MEDS: PHENYTOIN IV DILANTIN 300 MG in SODIUM CHL 0.9% 50 ML IV SCH (10:02)
[2016-08-04 12:00] VITALS: BP 134/99
[2016-08-04] MEDS ORDERED: LORazepam 2MG/ML-1ML VIAL IV ONE (14:15)
[2016-08-04 16:00] VITALS: BP 136/82
[2016-08-04 20:00] VITALS: BP 146/84
[2016-08-04] MEDS: ROPINIROLE HYDROCHLORIDE 1 MG PO SCH (21:34)
[2016-08-04] MEDS: MORPHINE SULF 30 mg ER tab PO SCH (21:57)
[2016-08-04] MEDS: TEMAZEPAM 15 MG CAP PO PRN (22:04)
[2016-08-05] VITALS (7 sets, daily range): BP systolic 111–140; BP diastolic 73–88
[2016-08-05] MEDS: ALBUTEROL SULF 2.5 MG/0.5ML(0.5%) NEB SOLN NEB SCH ×4 (00:35→18:04)
[2016-08-05] MEDS: MORPHINE SULF INJ 2 MG/ML SYRINGE 1ML IV PRN (01:38)
[2016-08-05 06:00] LABS: DEFINITIVE VIEW TRANSMISSION; Hematocrit 33.8 % (41.0-53.0); Hemoglobin 10.8 g/dL (13.5-17.5); Mean Corpuscular Hemoglobin 25.3 pg (28.0-32.0); Mean Corpuscular Volume 79.1 fL (80.0-100.0); Mean Platelet Volume 9.3 fL (7.4-10.4); Platelet Count (auto) 382 10^3/uL (140-450); White Blood Cell 10.7 10^3/uL (4.4-10.8)
[2016-08-05 06:04] LABS: Albumin 3.1 g/dL (3.4-5.0); Potassium 4.1 mmol/L (3.5-5.1)
[2016-08-05 06:06] LABS: BUN/Creatinine Ratio 22.6
[2016-08-05 06:09] LABS: Bilirubin, Total 0.3 mg/dL (0.2-1.0); Total Protein 6.8 g/dL (6.4-8.2)
[2016-08-05 06:13] LABS: Red Cell Distribution Width 20.2 % (11.6-16.0)
[2016-08-05 06:14] LABS: Metamyelocytes % 0; Myelocytes % 0; Promyelocytes % 0; Reactive Lymphocytes 0
[2016-08-05] MEDS: HYDROcodone-ACET 5/325MG TAB PO PRN ×2 (06:38→18:01)
[2016-08-05 06:48] LABS: Platelet Estimate Adequate
[2016-08-05 06:49] LABS: Anisocytosis Slight; Ovalocytes FEW
[2016-08-05] MEDS: BACLOFEN 10 MG TAB PO SCH ×2 (10:49→22:05)
[2016-08-05] MEDS: FUROSEMIDE 20 MG TAB PO SCH (10:57)
[2016-08-05] MEDS: LEVETIRACETAM 500 MG TAB PO SCH ×2 (10:58→22:05)
[2016-08-05] MEDS: MORPHINE SULF 30 mg ER tab PO SCH ×2 (10:58→22:06)
[2016-08-05] MEDS: POTASSIUM CHL 20 Meq TABLET PO SCH (10:58)
[2016-08-05] MEDS: TAMSULOSIN HYDROCHLORIDE 0.4 MG CAP PO SCH (10:58)
[2016-08-05] MEDS: CARVEDILOL 3.125 MG TAB PO SCH ×2 (11:00→22:06)
[2016-08-05] MEDS: ASPirin-EC 81 mg tab PO SCH (11:00)
[2016-08-05] MEDS: PHENYTOIN IV DILANTIN 300 MG in SODIUM CHL 0.9% 50 ML IV SCH (12:52)
[2016-08-05] MEDS ORDERED: ROPINIROLE HYDROCHLORIDE 2 MG PO SCH (22:00)
[2016-08-05] MEDS ORDERED: PHENYTOIN SODIUM 100 MG CAP PO SCH (22:00)
[2016-08-06] MEDS: ALBUTEROL SULF 2.5 MG/0.5ML(0.5%) NEB SOLN NEB SCH ×3 (00:10→12:03)
[2016-08-06 05:00] VITALS: BP 129/77
[2016-08-06] MEDS: HYDROcodone-ACET 5/325MG TAB PO PRN ×2 (05:43→15:32)
[2016-08-06 09:00] VITALS: BP 156/75
[2016-08-06] MEDS: BACLOFEN 10 MG TAB PO SCH (10:17)
[2016-08-06] MEDS: ASPirin-EC 81 mg tab PO SCH (10:17)
[2016-08-06] MEDS: CARVEDILOL 3.125 MG TAB PO SCH (10:18)
[2016-08-06] MEDS: FUROSEMIDE 20 MG TAB PO SCH (10:18)
[2016-08-06] MEDS: TAMSULOSIN HYDROCHLORIDE 0.4 MG CAP PO SCH (10:19)
[2016-08-06] MEDS: LEVETIRACETAM 500 MG TAB PO SCH (10:19)
[2016-08-06] MEDS: POTASSIUM CHL 20 Meq TABLET PO SCH (10:19)
[2016-08-06] MEDS: MORPHINE SULF 30 mg ER tab PO SCH (10:20)
[2016-08-06 12:35] VITALS: BP 150/74
[2016-08-06 13:00] VITALS: BP 147/81
[2016-08-06 16:33] VITALS: BP 129/78
== END 2016-08-06 17:45 | disposition home or self-care (01) | DRG 53 ==
LOC: EDBD 16:42 → ER 16:42 → TELE 16:43 → TELE-WESTW 22:12 → ICU CENTRL 08-03 17:16 → DOU IN ICU 08-03 17:20 → TELE-WESTW 08-05 18:05
PROVIDERS: ADMIT Internal Medicine; ATTEND Internal Medicine
DX: G40.401 Other generalized epilepsy and epileptic syndromes, not intractable, with status epilepticus (principal); J96.10 Chronic respiratory failure, unspecified whether with hypoxia or hypercapnia; I50.9 Heart failure, unspecified; I13.0 Hypertensive heart and chronic kidney disease with heart failure and stage 1 through stage 4 chronic kidney disease, or unspecified chronic kidney disease; E87.1 Hypo-osmolality and hyponatremia; S09.90XA Unspecified injury of head, initial encounter; N18.9 Chronic kidney disease, unspecified; F31.9 Bipolar disorder, unspecified; E03.9 Hypothyroidism, unspecified; I25.10 Atherosclerotic heart disease of native coronary artery without angina pectoris; F41.9 Anxiety disorder, unspecified; R32 Unspecified urinary incontinence; D64.9 Anemia, unspecified; E87.6 Hypokalemia; J44.9 Chronic obstructive pulmonary disease, unspecified; I25.2 Old myocardial infarction; Z83.3 Family history of diabetes mellitus; Z82.0 Family history of epilepsy and other diseases of the nervous system; Z79.899 Other long term (current) drug therapy; Z87.891 Personal history of nicotine dependence; Z99.81 Dependence on supplemental oxygen; Z81.1 Family history of alcohol abuse and dependence; Z80.9 Family history of malignant neoplasm, unspecified; Z83.79 Family history of other diseases of the digestive system; Z71.89 Other specified counseling
CPT/HCPCS: 36415; 70450; 70551; 71010; 80048; 80053; 80307; 80320; 83735; 84443; 85007; 85025; 85027; 87081; 93005; 94640; 95819; 96374; 96375; 99291; J2405

== ENCOUNTER 2016-10-04 18:56 | Emergency (ER) | payer MEDICAID ==
[~2016-10-04] VITALS: Ht 165.1 cm; Wt 76.7 kg
[~2016-10-04 18:56] MED LIST changes: +ASPI81TA10 PO; -FURO40TA4 PO; +HYDROCODON-ACETAMINOPHN PO; -OMEP20CA5 PO; +OMEP20CA74 PO; -OXYC10TA44 PO; +ROPI2TAB4 PO
[2016-10-04 21:02] VITALS: BP 125/99
== END 2016-10-04 21:45 | disposition home or self-care (01) ==
LOC: ER 18:57
DX: H10.9 Unspecified conjunctivitis (principal); J44.9 Chronic obstructive pulmonary disease, unspecified; I13.0 Hypertensive heart and chronic kidney disease with heart failure and stage 1 through stage 4 chronic kidney disease, or unspecified chronic kidney disease; N18.9 Chronic kidney disease, unspecified; I50.9 Heart failure, unspecified; I25.2 Old myocardial infarction; Z87.891 Personal history of nicotine dependence

== ENCOUNTER 2017-02-12 06:51 | Day surgery (SDC) | payer MEDICAID ==
[2017-02-10 11:43] LABS: Basophils # (auto) 0 uL; Basophils % (auto) 0.8 % (0.0-2.0); Eosinophils # (auto) 0.2 uL; Hematocrit 36.9 % (41.0-53.0); Lymphocytes # (auto) 1.3 uL; Lymphocytes % (auto) 27.1 % (10.0-50.0); Mean Corpuscular Hemoglobin 28.1 pg (28.0-32.0); Mean Corpuscular Hgb Conc. 32.4 g/dL (32.0-36.0); Mean Corpuscular Volume 86.6 fL (80.0-100.0); Mean Platelet Volume 8.1 fL (6.9-10.8); Monocytes # (auto) 0.4 uL; Monocytes % (auto) 8.3 % (0.0-12.0); Neutrophils # (auto) 2.8 uL; Neutrophils % (auto) 59.8 % (37.0-80.0); Platelet Count (auto) 282 10^3/uL (140-450); Red Cell Distribution Width 17.7 % (11.8-14.3); White Blood Cell 4.6 10^3/uL (4.4-10.8)
[2017-02-10 11:48] LABS: Urine Bilirubin Negative (Negative); Urine Blood Negative /uL (Negative); Urine Color Yellow (Yellow); Urine Glucose Normal (Normal); Urine Ketone Negative (Negative); Urine Nitrite Negative (Negative); Urine RBC <1 /hpf (0 - 3); Urine Urobilinogen Normal (Negative); Urine pH 6.5 (5.0-8.0)
[2017-02-10 11:55] LABS: INR 0.98 (0.9-1.15); Prothrombin Time 10.7 sec (9.37-12.3)
[2017-02-10 11:59] LABS: Albumin 3.6 g/dL (3.4-5.0); BUN/Creatinine Ratio 34.8; Bilirubin, Total 0.1 mg/dL (0.2-1.0); Calcium 8.4 mg/dL (8.5-10.1); Potassium 4.3 mmol/L (3.5-5.1); Total Protein 7.2 g/dL (6.4-8.2)
[~2017-02-12] VITALS: Ht 165.1 cm; Wt 72.6 kg
[~2017-02-12 06:51] MED LIST changes: +ALPR0.5T PO; +CITA-30 PO; +FLUO40CA PO; +HYDR1CAP27 PO; -HYDROCODON-ACETAMINOPHN PO; +LEVE500T22 PO; +LORA-622 PO; +OXYC-102 PO; +OXYC15TA77 PO; +PHE100C PO; +PRAZ2CAP PO; +QUET400T3 PO; -ROPI1TAB22 PO; +SENN1TAB14 PO; +SUCR1TAB38 OR; +TRAM50TA2 PO
[2017-02-12] MEDS ORDERED: ceFAZolin 1GM/50ML 50 ML IV ONE (06:59)
[2017-02-12] MEDS ORDERED: BUPIVACAINE W/ EPINEPH 0.25% INJ 50ML MDV ONE (08:05)
[2017-02-12] MEDS ORDERED: LIDOCAINE 1% HCL (LOCAL ANESTH.) INJ 20ML MDV ONE (08:05)
[2017-02-12] MEDS ORDERED: LIDOCAINE W/ EPINEPHRINE 1% 20ML VIAL ONE (08:05)
[2017-02-12] MEDS ORDERED: BUPIVACAINE 0.25% INJ 50ML VIAL ONE (08:05)
[2017-02-12] MEDS ORDERED: NEOMYCIN-BACITRACIN-POLYM 15GM TOP OINT TOP ONE (08:19)
[2017-02-12] MEDS ORDERED: PROPOFOL 10 MG/ML 20 ML IV ONE (08:27)
[2017-02-12] MEDS ORDERED: fentaNYL CITRATE 100 MCG/2 ML VL ONE ×2 (08:27→08:49)
[2017-02-12] MEDS ORDERED: MIDAZOLAM HCL 1MG/1ML-2 ML VIAL ONE (08:28)
[2017-02-12] MEDS ORDERED: ceFAZolin 1GM VL ONE (08:31)
[2017-02-12] MEDS ORDERED: BUPIVACAINE W/ EPINEPH 0.25% INJ 50ML MDV IJ ONE (08:49)
[2017-02-12 10:15] VITALS: BP 137/77
== END 2017-02-12 10:20 | disposition home or self-care (01) ==
LOC: SUR 06:51
PROVIDERS: ATTEND Urology
DX: N47.1 Phimosis (principal); N47.6 Balanoposthitis; I25.10 Atherosclerotic heart disease of native coronary artery without angina pectoris; I10 Essential (primary) hypertension; J44.9 Chronic obstructive pulmonary disease, unspecified; J45.909 Unspecified asthma, uncomplicated; K21.9 Gastro-esophageal reflux disease without esophagitis; N40.1 Benign prostatic hyperplasia with lower urinary tract symptoms; D64.9 Anemia, unspecified; R56.9 Unspecified convulsions; I20.9 Angina pectoris, unspecified; I50.9 Heart failure, unspecified; J43.9 Emphysema, unspecified; G47.30 Sleep apnea, unspecified; E11.9 Type 2 diabetes mellitus without complications; F20.9 Schizophrenia, unspecified; F32.9 Major depressive disorder, single episode, unspecified; F41.9 Anxiety disorder, unspecified; Z87.891 Personal history of nicotine dependence; Z83.3 Family history of diabetes mellitus
CPT/HCPCS: 54150; J3010; 36415; 80053; 81001; 85025; 85610; 85730; J0690; J2001; J2250; J2704; J3490

== ENCOUNTER 2018-12-10 08:40 | Emergency (ER) | payer MEDICAID ==
[~2018-12-10] VITALS: Ht 165.1 cm; Wt 79.4 kg
[~2018-12-10 08:40] MED LIST changes: +DIVA500T13 PO; -DIVA500T59 PO; +POTA-220 PO; -POTA20TA53 PO
[2018-12-10 08:57] VITALS: BP 97/73
== END 2018-12-10 10:45 | disposition home or self-care (01) ==
LOC: ER 08:40
DX: S80.861A Insect bite (nonvenomous), right lower leg, initial encounter (principal); I13.0 Hypertensive heart and chronic kidney disease with heart failure and stage 1 through stage 4 chronic kidney disease, or unspecified chronic kidney disease; N18.9 Chronic kidney disease, unspecified; I50.9 Heart failure, unspecified; J44.9 Chronic obstructive pulmonary disease, unspecified; I25.2 Old myocardial infarction; Z87.891 Personal history of nicotine dependence; Z86.39 Personal history of other endocrine, nutritional and metabolic disease; Z79.899 Other long term (current) drug therapy; W57.XXXA Bitten or stung by nonvenomous insect and other nonvenomous arthropods, initial encounter; Y93.89 Activity, other specified; Y92.89 Other specified places as the place of occurrence of the external cause; Y99.8 Other external cause status

== ENCOUNTER 2019-11-01 11:54 | Inpatient (IN) | payer MEDICAID ==
[~2019-11-01] VITALS: Ht 165.1 cm; Wt 84.4 kg
[~2019-11-01 11:54] MED LIST changes: -LEVE500T22 PO; +LEVE500T32 PO; +SUCR1TAB22 OR; -SUCR1TAB38 OR
[2019-11-01] MEDS ORDERED: SODIUM CHLORIDE 0.9% 1,000 ML IV ONE (12:02)
[2019-11-01] MEDS ORDERED: ALBUTEROL SULF 2.5 MG/0.5ML(0.5%) NEB SOLN NEB ONE ×2 (12:15→18:30)
[2019-11-01] MEDS ORDERED: methylPREDNISolone SOD SUCC 125 MG/2 ML VL IV ONE (12:15)
[2019-11-01] MEDS ORDERED: NITROGLYCERIN 0.4 MG SL TAB SL ONE (12:15)
[2019-11-01 13:10] LABS: Eosinophils # (auto) 0.1 10 ^3/uL (0-0.8); Hemoglobin 8.7 g/dL (13.5-17.5); Lymphocytes # (auto) 0.8 10 ^3/uL (0.4-5.4); Mean Corpuscular Hemoglobin 23.3 pg (28.0-32.0); White Blood Cell 7.3 10^3/uL (4.4-10.8)
[2019-11-01 13:12] LABS: Basophils # (auto) 0 10 ^3/uL (0-0.2); Basophils % (auto) 0.7 % (0.0-2.0); Eosinophils % (auto) 1.5 % (0.0-7.0); Hematocrit 28.1 % (41.0-53.0); Lymphocytes % (auto) 11.5 % (10.0-50.0); Mean Corpuscular Hgb Conc. 30.9 g/dL (32.0-36.0); Mean Corpuscular Volume 75.5 fL (80.0-100.0); Monocytes # (auto) 0.6 10 ^3/uL (0-1.3); Monocytes % (auto) 8.5 % (0.0-12.0); Neutrophils # (auto) 5.7 10 ^3/uL (1.6-8.6); Neutrophils % (auto) 77.8 % (37.0-80.0); Platelet Count (auto) 288 10^3/uL (140-450); Red Blood Cells 3.72 10^6/uL (4.5-5.90); Red Cell Distribution Width 17.9 % (11.8-14.3)
[2019-11-01 13:30] LABS: Albumin 3.3 g/dL (3.4-5.0); Anion Gap 4 (5-15); Blood Urea Nitrogen 13 mg/dL (7-18); Calcium 8.4 mg/dL (8.5-10.1); Carbon Dioxide 25 mmol/L (21-32); Chloride 109 mmol/L (98-107); Glucose 93 mg/dL (74-106); Potassium 4.3 mmol/L (3.5-5.1); Sodium 138 mmol/L (136-145)
[2019-11-01 13:32] LABS: INR 0.97 (0.9-1.15); Partial Thromboplastin Time 25.3 sec (23.0-31.2)
[2019-11-01 13:35] LABS: Alanine Aminotransferase 92 U/L (16-61); Alkaline Phosphatase 242 U/L (45-117); Aspartate Aminotransferase 38 U/L (15-37); BUN/Creatinine Ratio 19.7; Bilirubin, Total 0.3 mg/dL (0.2-1.0); GFR African American 159 mL/min; GFR Non-African American 131 mL/min; Total Protein 6.5 g/dL (6.4-8.2)
[2019-11-01] MEDS ORDERED: MORPHINE SULF INJ 2 MG/ML SYRINGE 1ML IV ONE ×2 (15:15→18:15)
[2019-11-01] MEDS ORDERED: ONDANSETRON HCL 4 MG/2 ML VIAL IV ONE (15:15)
[2019-11-01 17:05] LABS: Urine Bacteria NONE SEEN /hpf (None Seen); Urine Blood Negative /uL (Negative); Urine Hyaline Cast FEW /lpf (0 - 2); Urine Mucus FEW (None Seen); Urine Specific Gravity 1.027 (1.001-1.035); Urine WBC 1 /hpf (0 - 3)
[2019-11-01 17:15] LABS: Alcohol, Urine < 3.0 mg/dL (0-10); Amphetamine Screen, Urine NEGATIVE (NEGATIVE); Barbiturate Scree,Urine NEGATIVE (NEGATIVE); Benzodiazephine Screen, Urine NEGATIVE (NEGATIVE); Cannabinoid Screen, Urine POSITIVE (NEGATIVE); Cocaine Screen, Urine NEGATIVE (NEGATIVE); Phencyclidine Screen, Urine NEGATIVE (NEGATIVE)
[2019-11-01 17:22] LABS: Opiate Scree,Urine NEGATIVE (NEGATIVE)
[2019-11-01] MEDS ORDERED: IPRATROPIUM BROM 0.5 MG/2.5ML INH SOL NEB ONE (18:30)
[2019-11-01] MEDS ORDERED: FLUTICASONE PROP NASAL SPR 0.05 % (50MCG) 16GM EACHNOSTRI ONE (18:30)
[2019-11-01] MEDS ORDERED: HYDROmorphone HCL 2 MG/ML VL IV ONE (18:30)
[2019-11-01] MEDS ORDERED: busPIRone HCL 10 MG TAB PO ONE (18:30)
[2019-11-01] MEDS ORDERED: FUROSEMIDE 20 MG/2 ML VIAL IV ONE (18:30)
[2019-11-01] MEDS ORDERED: LACTULOSE 20Gm/30ML SOLN PO PRN (18:45)
[2019-11-01] MEDS ORDERED: HYDROmorphone HCL 2 MG/ML VL ONE (18:45)
[2019-11-01] MEDS ORDERED: PANTOPRAZOLE 40 MG/10 ML VIAL INJ IV ONE (18:45)
[2019-11-01] MEDS ORDERED: NITROGLYCERIN 0.4 MG SL TAB SL PRN ×2 (18:45)
[2019-11-01] MEDS ORDERED: MORPHINE SULFATE 4 MG/ML SYR/VIAL IV PRN (18:45)
[2019-11-01] MEDS ORDERED: ALUM & MAG HYDROX-SIMETH LIQ(MAALOX) 30 ML PO ONE (18:45)
[2019-11-01] MEDS ORDERED: ACETAMINOPHEN 325 MG TAB PO PRN (18:45)
[2019-11-01] MEDS ORDERED: DOXYCYCLINE 100MG/250ML 250 ML IV ONE (19:00)
[2019-11-01] MEDS: SODIUM CHLORIDE 0.9% 1,000 ML IV SCH (19:01)
[2019-11-01 19:23] LABS: Cholesterol 161 mg/dL (< 200); HDL Cholesterol 91 mg/dL (40-59); LDL Cholesterol 58 mg/dL (< 100); Triglycerides 77 mg/dL (< 150)
[2019-11-01 20:29] LABS: Urine Bacteria NONE SEEN /hpf (None Seen); Urine Blood Negative /uL (Negative); Urine Specific Gravity 1.015 (1.001-1.035); Urine WBC <1 /hpf (0 - 3)
[2019-11-01 21:05] LABS: % Iron Saturation 3.7 % (20-55)
[2019-11-01 21:16] LABS: Folate (Folic Acid) 19.2 ng/mL (5.38-24)
[2019-11-01] MEDS: ALBUTEROL SULF 2.5 MG/0.5ML(0.5%) NEB SOLN NEB SCH (21:29)
[2019-11-01] MEDS: IPRATROPIUM BROM 0.5 MG/2.5ML INH SOL NEB SCH (21:29)
[2019-11-01] MEDS: levETIRAcetam 500 MG TAB PO SCH (21:33)
[2019-11-01] MEDS: SUCRALFATE 1 GM TAB PO SCH (21:33)
[2019-11-01] MEDS: GABAPENTIN 300 MG CAP PO SCH (21:34)
[2019-11-01] MEDS: BACLOFEN 10 MG TAB PO SCH (21:34)
[2019-11-01] MEDS: ATORVASTATIN 20 MG TAB PO SCH (21:34)
[2019-11-01] MEDS: ROPINIROLE 2 MG PO SCH ×2 (21:35→22:01)
[2019-11-01] MEDS ORDERED: GABAPENTIN 100 MG CAP PO SCH (22:00)
[2019-11-01] MEDS: ONDANSETRON HCL 4 MG/2 ML VIAL IV PRN (23:37)
[2019-11-01] MEDS: MORPHINE SULF INJ 2 MG/ML SYRINGE 1ML IV PRN (23:38)
[2019-11-02 00:26] VITALS: BP 141/86
[2019-11-02] MEDS: LORazepam 0.5 MG TAB PO PRN ×2 (04:00→17:52)
[2019-11-02] MEDS: FUROSEMIDE 20 MG/2 ML VIAL IV SCH ×2 (05:52→17:52)
[2019-11-02] MEDS: SUCRALFATE 1 GM TAB PO SCH ×4 (05:53→22:44)
[2019-11-02] MEDS: ROPINIROLE 2 MG PO SCH ×3 (05:53→22:44)
[2019-11-02] MEDS: IPRATROPIUM BROM 0.5 MG/2.5ML INH SOL NEB SCH (06:00)
[2019-11-02] MEDS: ALBUTEROL SULF 2.5 MG/0.5ML(0.5%) NEB SOLN NEB SCH (06:00)
[2019-11-02] MEDS: SODIUM CHLORIDE 0.9% 1,000 ML IV SCH ×2 (08:02→22:42)
[2019-11-02] MEDS: FERROUS SULFATE 325 MG TAB PO SCH ×3 (08:02→17:52)
[2019-11-02] MEDS: ONDANSETRON HCL 4 MG/2 ML VIAL IV PRN ×2 (08:03→14:30)
[2019-11-02] MEDS: MORPHINE SULF INJ 2 MG/ML SYRINGE 1ML IV PRN ×3 (08:03→18:54)
[2019-11-02 08:11] LABS: Phenytoin (Dilantin) 8.3 ug/mL (10-20)
[2019-11-02] MEDS ORDERED: OMEPRAZOLE 20MG/10ML ORAL SUSP PO SCH (10:00)
[2019-11-02] MEDS ORDERED: PHENYTOIN SODIUM 100 MG CAP PO SCH (10:00)
[2019-11-02] MEDS: PANTOPRAZOLE 40 MG/10 ML VIAL INJ IV SCH ×3 (10:16→22:43)
[2019-11-02] MEDS: CARVEDILOL 3.125 MG TAB PO SCH (10:17)
[2019-11-02] MEDS: DOCUSATE SOD 100 MG CAP PO SCH (10:17)
[2019-11-02] MEDS: busPIRone HCL 10 MG TAB PO SCH ×2 (10:17→22:44)
[2019-11-02] MEDS: CITALOPRAM HYDROBR 20 MG TAB PO SCH (10:17)
[2019-11-02] MEDS: SENNA 8.6 MG TAB PO SCH (10:18)
[2019-11-02] MEDS: TAMSULOSIN HYDROCHLORIDE 0.4 MG CAP PO SCH (10:18)
[2019-11-02] MEDS: ALPRAZolam 0.5 MG TAB PO SCH (10:18)
[2019-11-02] MEDS: BACLOFEN 10 MG TAB PO SCH ×2 (10:18→22:44)
[2019-11-02] MEDS: PHENYTOIN SODIUM 100 MG CAP PO SCH (10:18)
[2019-11-02] MEDS: ASPirin-EC 81 mg tab PO SCH (10:18)
[2019-11-02] MEDS: hydrOXYzine 25 MG TAB or CAP PO SCH (10:18)
[2019-11-02] MEDS: levETIRAcetam 500 MG TAB PO SCH ×2 (10:18→22:44)
[2019-11-02] MEDS: LISINOPRIL 5 MG TAB PO SCH (10:19)
[2019-11-02] MEDS: DOXYCYCLINE 100MG/250ML 250 ML IV SCH ×3 (10:38→22:43)
[2019-11-02] MEDS: FLUTICASONE PROP NASAL SPR 0.05 % (50MCG) 16GM EACHNOSTRI SCH ×2 (10:38→22:00)
[2019-11-02 22:00] VITALS: BP 120/68
[2019-11-02] MEDS: ATORVASTATIN 20 MG TAB PO SCH (22:44)
[2019-11-02] MEDS: GABAPENTIN 300 MG CAP PO SCH (22:45)
[2019-11-03 05:01] VITALS: BP 128/78
[2019-11-03] MEDS: FUROSEMIDE 20 MG/2 ML VIAL IV SCH ×2 (06:00→17:10)
[2019-11-03] MEDS: SUCRALFATE 1 GM TAB PO SCH ×4 (06:24→21:58)
[2019-11-03] MEDS: ROPINIROLE 2 MG PO SCH ×3 (07:00→21:56)
[2019-11-03 07:09] LABS: Basophils # (auto) 0 10 ^3/uL (0-0.2); Basophils % (auto) 0.7 % (0.0-2.0); Eosinophils # (auto) 0.2 10 ^3/uL (0-0.8); Eosinophils % (auto) 3.7 % (0.0-7.0); Hematocrit 32.2 % (41.0-53.0); Hemoglobin 10.1 g/dL (13.5-17.5); Lymphocytes # (auto) 1.1 10 ^3/uL (0.4-5.4); Lymphocytes % (auto) 17.7 % (10.0-50.0); Mean Corpuscular Hemoglobin 23.6 pg (28.0-32.0); Mean Corpuscular Hgb Conc. 31.5 g/dL (32.0-36.0); Mean Corpuscular Volume 75.1 fL (80.0-100.0); Monocytes # (auto) 0.5 10 ^3/uL (0-1.3); Monocytes % (auto) 8.8 % (0.0-12.0); Neutrophils # (auto) 4.2 10 ^3/uL (1.6-8.6); Neutrophils % (auto) 69.1 % (37.0-80.0); Platelet Count (auto) 348 10^3/uL (140-450); Red Blood Cells 4.29 10^6/uL (4.5-5.90); Red Cell Distribution Width 18.1 % (11.8-14.3); White Blood Cell 6.1 10^3/uL (4.4-10.8)
[2019-11-03 07:33] LABS: Calcium 8.6 mg/dL (8.5-10.1)
[2019-11-03 07:40] LABS: Albumin 3.2 g/dL (3.4-5.0); BUN/Creatinine Ratio 34.8; Bilirubin, Total 0.1 mg/dL (0.2-1.0); Total Protein 6.8 g/dL (6.4-8.2)
[2019-11-03 08:00] VITALS: BP 128/78
[2019-11-03] MEDS: FERROUS SULFATE 325 MG TAB PO SCH ×3 (08:25→17:10)
[2019-11-03 09:00] VITALS: BP 130/68
[2019-11-03] MEDS: cefTRIAXone 1GM/50ML D5W 50 ML IV SCH (09:00)
[2019-11-03] MEDS: busPIRone HCL 10 MG TAB PO SCH ×2 (09:07→21:57)
[2019-11-03] MEDS: PANTOPRAZOLE 40 MG/10 ML VIAL INJ IV SCH ×2 (09:07→21:56)
[2019-11-03] MEDS: CITALOPRAM HYDROBR 20 MG TAB PO SCH (09:08)
[2019-11-03] MEDS: DOCUSATE SOD 100 MG CAP PO SCH (09:08)
[2019-11-03] MEDS: ASPirin-EC 81 mg tab PO SCH (09:09)
[2019-11-03] MEDS: PHENYTOIN SODIUM 100 MG CAP PO SCH (09:09)
[2019-11-03] MEDS: TAMSULOSIN HYDROCHLORIDE 0.4 MG CAP PO SCH (09:09)
[2019-11-03] MEDS: levETIRAcetam 500 MG TAB PO SCH ×2 (09:10→21:58)
[2019-11-03] MEDS: ALPRAZolam 0.5 MG TAB PO SCH (09:11)
[2019-11-03] MEDS: hydrOXYzine 25 MG TAB or CAP PO SCH (09:11)
[2019-11-03] MEDS: SENNA 8.6 MG TAB PO SCH (09:11)
[2019-11-03] MEDS: BACLOFEN 10 MG TAB PO SCH ×2 (09:11→21:57)
[2019-11-03] MEDS: LISINOPRIL 5 MG TAB PO SCH (09:12)
[2019-11-03] MEDS: FLUTICASONE PROP NASAL SPR 0.05 % (50MCG) 16GM EACHNOSTRI SCH ×2 (09:32→21:55)
[2019-11-03] MEDS: CARVEDILOL 3.125 MG TAB PO SCH (09:33)
[2019-11-03 09:50] LABS: Ferritin 10.3 ng/mL (10-322)
[2019-11-03 09:52] LABS: Carcinoembryonic Antigen < 0.50 ng/mL (<5.0 OR =)
[2019-11-03 09:53] LABS: Hepatitis B Surface Antibody Negative
[2019-11-03] MEDS: DOXYCYCLINE 100MG/250ML 250 ML IV SCH ×2 (10:00→21:56)
[2019-11-03 10:24] LABS: Hepatitis A Total Antibody Negative
[2019-11-03] MEDS ORDERED: predniSONE 20 MG TAB PO ONE (10:45)
[2019-11-03 11:31] LABS: Hepatitis A Ab IgM Negative; Hepatitis B Core IgM Negative; Hepatitis B Surface Antigen Negative (Negative); Hepatitis C Antibody Negative (Negative)
[2019-11-03] MEDS: HYDROcodone-ACET 10/325MG TAB PO PRN (11:32)
[2019-11-03 11:40] LABS: Hepatitis B Core Total AB Negative
[2019-11-03 11:41] LABS: Hepatitis B Surface Antigen Negative (Negative); Hepatitis C Antibody Negative (Negative)
[2019-11-03] MEDS: MORPHINE SULF INJ 2 MG/ML SYRINGE 1ML IV PRN ×2 (15:18→20:10)
[2019-11-03] MEDS: LORazepam 0.5 MG TAB PO PRN (15:18)
[2019-11-03] MEDS: SODIUM CHLORIDE 0.9% 1,000 ML IV SCH (16:00)
[2019-11-03] MEDS ORDERED: methylPREDNISolone SOD SUCC 125 MG/2 ML VL IV ONE (16:45)
[2019-11-03 17:00] VITALS: BP 155/69
[2019-11-03 20:00] VITALS: BP 157/76
[2019-11-03] MEDS: ALBUTEROL SULF 2.5 MG/0.5ML(0.5%) NEB SOLN NEB PRN (20:50)
[2019-11-03] MEDS: methylPREDNISolone SOD SUCC 125 MG/2 ML VL IV SCH (21:56)
[2019-11-03] MEDS: ATORVASTATIN 20 MG TAB PO SCH (21:57)
[2019-11-03] MEDS: GABAPENTIN 300 MG CAP PO SCH (21:57)
[2019-11-03 22:00] VITALS: BP 157/76
[2019-11-04] MEDS: SODIUM CHLORIDE 0.9% 1,000 ML IV SCH ×2 (00:01→15:53)
[2019-11-04] MEDS: MORPHINE SULF INJ 2 MG/ML SYRINGE 1ML IV PRN ×4 (02:02→20:24)
[2019-11-04] MEDS: HYDROcodone-ACET 10/325MG TAB PO PRN (04:36)
[2019-11-04 05:00] VITALS: BP 135/91
[2019-11-04] MEDS: ALBUTEROL SULF 2.5 MG/0.5ML(0.5%) NEB SOLN NEB PRN ×3 (06:34→18:21)
[2019-11-04] MEDS: methylPREDNISolone SOD SUCC 125 MG/2 ML VL IV SCH ×3 (06:35→21:07)
[2019-11-04] MEDS: FUROSEMIDE 20 MG/2 ML VIAL IV SCH ×2 (06:36→17:15)
[2019-11-04] MEDS: SUCRALFATE 1 GM TAB PO SCH ×4 (06:36→21:07)
[2019-11-04] MEDS: ROPINIROLE 2 MG PO SCH ×3 (06:36→21:07)
[2019-11-04] MEDS: FERROUS SULFATE 325 MG TAB PO SCH ×3 (08:00→17:15)
[2019-11-04] MEDS ORDERED: ADENOSINE 68 MG in GIVE UN-DILUTED 0 ML IV STA (08:26)
[2019-11-04 09:23] VITALS: BP 134/82
[2019-11-04] MEDS: NICOTINE 21MG/24 HR TOPICAL PATCH TD SCH (09:41)
[2019-11-04] MEDS: cefTRIAXone 1GM/50ML D5W 50 ML IV SCH (09:41)
[2019-11-04] MEDS: PANTOPRAZOLE 40 MG/10 ML VIAL INJ IV SCH ×2 (09:41→21:07)
[2019-11-04] MEDS: FLUTICASONE PROP NASAL SPR 0.05 % (50MCG) 16GM EACHNOSTRI SCH ×2 (11:42→21:06)
[2019-11-04] MEDS: DOXYCYCLINE 100MG/250ML 250 ML IV SCH ×2 (11:42→21:07)
[2019-11-04] MEDS: PHENYTOIN SODIUM 100 MG CAP PO SCH (12:14)
[2019-11-04] MEDS: busPIRone HCL 10 MG TAB PO SCH ×2 (12:14→21:07)
[2019-11-04] MEDS: ASPirin-EC 81 mg tab PO SCH (12:15)
[2019-11-04] MEDS: BACLOFEN 10 MG TAB PO SCH ×2 (12:16→21:08)
[2019-11-04] MEDS: TAMSULOSIN HYDROCHLORIDE 0.4 MG CAP PO SCH (12:17)
[2019-11-04] MEDS: hydrOXYzine 25 MG TAB or CAP PO SCH (12:17)
[2019-11-04] MEDS: ALPRAZolam 0.5 MG TAB PO SCH (12:17)
[2019-11-04] MEDS: levETIRAcetam 500 MG TAB PO SCH ×2 (12:18→21:08)
[2019-11-04] MEDS: SENNA 8.6 MG TAB PO SCH (12:18)
[2019-11-04] MEDS: DOCUSATE SOD 100 MG CAP PO SCH (12:18)
[2019-11-04] MEDS: LISINOPRIL 5 MG TAB PO SCH (12:19)
[2019-11-04] MEDS: CITALOPRAM HYDROBR 20 MG TAB PO SCH (12:19)
[2019-11-04] MEDS: CARVEDILOL 3.125 MG TAB PO SCH (12:20)
[2019-11-04 12:57] VITALS: BP 118/76
[2019-11-04 16:43] VITALS: BP 122/70
[2019-11-04] MEDS: ONDANSETRON HCL 4 MG/2 ML VIAL IV PRN (20:23)
[2019-11-04] MEDS: GABAPENTIN 300 MG CAP PO SCH (21:08)
[2019-11-04] MEDS: ATORVASTATIN 20 MG TAB PO SCH (21:08)
[2019-11-04 22:00] VITALS: BP 117/76
[2019-11-05] MEDS: ONDANSETRON HCL 4 MG/2 ML VIAL IV PRN ×3 (01:54→10:54)
[2019-11-05] MEDS: MORPHINE SULF INJ 2 MG/ML SYRINGE 1ML IV PRN ×5 (01:55→19:41)
[2019-11-05] MEDS: SODIUM CHLORIDE 0.9% 1,000 ML IV SCH ×2 (02:41→16:01)
[2019-11-05 05:00] VITALS: BP 128/78
[2019-11-05] MEDS: FUROSEMIDE 20 MG/2 ML VIAL IV SCH ×2 (05:19→17:01)
[2019-11-05] MEDS: methylPREDNISolone SOD SUCC 125 MG/2 ML VL IV SCH ×3 (05:19→21:46)
[2019-11-05] MEDS: SUCRALFATE 1 GM TAB PO SCH ×4 (05:19→21:48)
[2019-11-05] MEDS: ROPINIROLE 2 MG PO SCH ×3 (05:19→21:48)
[2019-11-05 06:03] LABS: Basophils # (auto) 0 10 ^3/uL (0-0.2); Eosinophils # (auto) 0 10 ^3/uL (0-0.8); Neutrophils # (auto) 8.5 10 ^3/uL (1.6-8.6)
[2019-11-05 06:07] LABS: Basophils % (auto) 0.1 % (0.0-2.0); Hematocrit 35.2 % (41.0-53.0); Hemoglobin 10.8 g/dL (13.5-17.5); Lymphocytes # (auto) 0.9 10 ^3/uL (0.4-5.4); Mean Corpuscular Hemoglobin 23.5 pg (28.0-32.0); Mean Corpuscular Hgb Conc. 30.8 g/dL (32.0-36.0); Mean Corpuscular Volume 76.1 fL (80.0-100.0); Monocytes # (auto) 0.8 10 ^3/uL (0-1.3); Monocytes % (auto) 8.2 % (0.0-12.0); Neutrophils % (auto) 82.7 % (37.0-80.0); Nucleated Red Blood Cells % 0.1 %; Platelet Count (auto) 406 10^3/uL (140-450); Red Blood Cells 4.62 10^6/uL (4.5-5.90); White Blood Cell 10.3 10^3/uL (4.4-10.8)
[2019-11-05 06:21] LABS: Albumin 3.4 g/dL (3.4-5.0); Calcium 8.7 mg/dL (8.5-10.1); Potassium 4.2 mmol/L (3.5-5.1)
[2019-11-05 06:24] LABS: BUN/Creatinine Ratio 33.8
[2019-11-05 06:26] LABS: Bilirubin, Total 0.2 mg/dL (0.2-1.0); Total Protein 7.5 g/dL (6.4-8.2)
[2019-11-05] MEDS: ALBUTEROL SULF 2.5 MG/0.5ML(0.5%) NEB SOLN NEB PRN ×2 (07:17→18:28)
[2019-11-05] MEDS: FERROUS SULFATE 325 MG TAB PO SCH ×3 (07:59→17:01)
[2019-11-05] MEDS: cefTRIAXone 1GM/50ML D5W 50 ML IV SCH (07:59)
[2019-11-05 09:00] VITALS: BP 140/75
[2019-11-05] MEDS: DOXYCYCLINE 100MG/250ML 250 ML IV SCH ×2 (09:48→21:46)
[2019-11-05] MEDS: PANTOPRAZOLE 40 MG/10 ML VIAL INJ IV SCH ×2 (09:48→21:50)
[2019-11-05] MEDS: FLUTICASONE PROP NASAL SPR 0.05 % (50MCG) 16GM EACHNOSTRI SCH ×2 (09:48→21:45)
[2019-11-05] MEDS: ASPirin-EC 81 mg tab PO SCH (09:49)
[2019-11-05] MEDS: hydrOXYzine 25 MG TAB or CAP PO SCH (09:49)
[2019-11-05] MEDS: BACLOFEN 10 MG TAB PO SCH ×2 (09:49→21:46)
[2019-11-05] MEDS: CITALOPRAM HYDROBR 20 MG TAB PO SCH (09:49)
[2019-11-05] MEDS: DOCUSATE SOD 100 MG CAP PO SCH (09:49)
[2019-11-05] MEDS: levETIRAcetam 500 MG TAB PO SCH ×2 (09:49→21:47)
[2019-11-05] MEDS: SENNA 8.6 MG TAB PO SCH (09:49)
[2019-11-05] MEDS: busPIRone HCL 10 MG TAB PO SCH ×2 (09:49→21:47)
[2019-11-05] MEDS: PHENYTOIN SODIUM 100 MG CAP PO SCH (09:50)
[2019-11-05] MEDS: TAMSULOSIN HYDROCHLORIDE 0.4 MG CAP PO SCH (09:50)
[2019-11-05] MEDS: ALPRAZolam 0.5 MG TAB PO SCH (09:50)
[2019-11-05] MEDS: LISINOPRIL 5 MG TAB PO SCH (09:51)
[2019-11-05] MEDS: CARVEDILOL 3.125 MG TAB PO SCH (09:51)
[2019-11-05] MEDS: NICOTINE 21MG/24 HR TOPICAL PATCH TD SCH (09:52)
[2019-11-05 11:04] VITALS: BP 142/92
[2019-11-05 12:51] VITALS: BP 136/81
[2019-11-05 17:08] VITALS: BP 114/66
[2019-11-05] MEDS: ATORVASTATIN 20 MG TAB PO SCH (21:47)
[2019-11-05] MEDS: GABAPENTIN 300 MG CAP PO SCH (21:47)
[2019-11-05 22:00] VITALS: BP 141/88
[2019-11-06] VITALS (8 sets, daily range): BP systolic 115–148; BP diastolic 57–95
[2019-11-06] MEDS: MORPHINE SULF INJ 2 MG/ML SYRINGE 1ML IV PRN ×5 (00:08→20:12)
[2019-11-06] MEDS: SODIUM CHLORIDE 0.9% 1,000 ML IV SCH ×2 (05:22→18:23)
[2019-11-06] MEDS: ROPINIROLE 2 MG PO SCH ×3 (06:00→21:35)
[2019-11-06] MEDS: SUCRALFATE 1 GM TAB PO SCH ×4 (06:00→21:35)
[2019-11-06] MEDS: methylPREDNISolone SOD SUCC 125 MG/2 ML VL IV SCH ×3 (06:20→21:36)
[2019-11-06] MEDS: FUROSEMIDE 20 MG/2 ML VIAL IV SCH ×2 (06:20→17:05)
[2019-11-06] MEDS: ALBUTEROL SULF 2.5 MG/0.5ML(0.5%) NEB SOLN NEB PRN ×2 (06:44→18:44)
[2019-11-06] MEDS: FERROUS SULFATE 325 MG TAB PO SCH ×3 (07:21→17:05)
[2019-11-06] MEDS ORDERED: fentaNYL CITRATE 100 MCG/2 ML VL ONE (10:29)
[2019-11-06] MEDS ORDERED: MIDAZOLAM HCL 1MG/1ML-2 ML VIAL ONE ×2 (10:29→12:22)
[2019-11-06] MEDS ORDERED: GLYCOPYRROLATE 0.2 MG/ML 1ML VIAL ONE (10:30)
[2019-11-06] MEDS ORDERED: PROPOFOL 10 MG/ML 20 ML IV ONE (10:30)
[2019-11-06] MEDS ORDERED: ONDANSETRON HCL 4 MG/2 ML VIAL ONE (10:30)
[2019-11-06] MEDS ORDERED: LIDOCAINE 2% (LOCAL ANESTH.) PF 5ml SDV ONE (10:31)
[2019-11-06] MEDS ORDERED: HYDROmorphone HCL 2 MG/ML VL IV PRN (13:00)
[2019-11-06] MEDS ORDERED: ONDANSETRON HCL 4 MG/2 ML VIAL IV PRN (13:00)
[2019-11-06] MEDS: ASPirin-EC 81 mg tab PO SCH (13:44)
[2019-11-06] MEDS: FLUTICASONE PROP NASAL SPR 0.05 % (50MCG) 16GM EACHNOSTRI SCH ×2 (13:44→21:33)
[2019-11-06] MEDS: levETIRAcetam 500 MG TAB PO SCH ×2 (13:45→21:36)
[2019-11-06] MEDS: busPIRone HCL 10 MG TAB PO SCH ×2 (13:45→21:35)
[2019-11-06] MEDS: TAMSULOSIN HYDROCHLORIDE 0.4 MG CAP PO SCH (13:45)
[2019-11-06] MEDS: PHENYTOIN SODIUM 100 MG CAP PO SCH (13:45)
[2019-11-06] MEDS: CITALOPRAM HYDROBR 20 MG TAB PO SCH (13:45)
[2019-11-06] MEDS: hydrOXYzine 25 MG TAB or CAP PO SCH (13:46)
[2019-11-06] MEDS: LISINOPRIL 5 MG TAB PO SCH (13:46)
[2019-11-06] MEDS: BACLOFEN 10 MG TAB PO SCH ×2 (13:46→21:35)
[2019-11-06] MEDS: DOCUSATE SOD 100 MG CAP PO SCH (13:46)
[2019-11-06] MEDS: SENNA 8.6 MG TAB PO SCH (13:47)
[2019-11-06] MEDS: CARVEDILOL 3.125 MG TAB PO SCH (13:47)
[2019-11-06] MEDS: NICOTINE 21MG/24 HR TOPICAL PATCH TD SCH (13:48)
[2019-11-06] MEDS: ALPRAZolam 0.5 MG TAB PO SCH (13:48)
[2019-11-06] MEDS: LORazepam 0.5 MG TAB PO PRN (13:49)
[2019-11-06] MEDS: NYSTATIN (MOUTH-THROAT) 500,000 UNITS/5 ML SUSP MT SCH ×2 (17:05→21:34)
[2019-11-06] MEDS: ATORVASTATIN 20 MG TAB PO SCH (21:35)
[2019-11-06] MEDS: PANTOPRAZOLE 40 MG/10 ML VIAL INJ IV SCH (21:36)
[2019-11-06] MEDS: GABAPENTIN 300 MG CAP PO SCH (21:36)
[2019-11-07] MEDS: MORPHINE SULF INJ 2 MG/ML SYRINGE 1ML IV PRN ×5 (00:21→14:09)
[2019-11-07] MEDS: ALBUTEROL SULF 2.5 MG/0.5ML(0.5%) NEB SOLN NEB PRN ×2 (02:50→07:41)
[2019-11-07 05:00] VITALS: BP 135/80
[2019-11-07] MEDS: FUROSEMIDE 20 MG/2 ML VIAL IV SCH (06:13)
[2019-11-07] MEDS: ROPINIROLE 2 MG PO SCH ×2 (06:13→14:11)
[2019-11-07] MEDS: SUCRALFATE 1 GM TAB PO SCH ×2 (06:13→12:05)
[2019-11-07] MEDS: methylPREDNISolone SOD SUCC 125 MG/2 ML VL IV SCH ×2 (06:13→14:11)
[2019-11-07] MEDS: NYSTATIN (MOUTH-THROAT) 500,000 UNITS/5 ML SUSP MT SCH ×2 (06:13→12:05)
[2019-11-07 06:37] LABS: Basophils # (auto) 0 10 ^3/uL (0-0.2); Eosinophils # (auto) 0 10 ^3/uL (0-0.8); Mean Corpuscular Volume 76.1 fL (80.0-100.0)
[2019-11-07 06:39] LABS: Hemoglobin 10.1 g/dL (13.5-17.5); Lymphocytes % (auto) 9.2 % (10.0-50.0); Mean Corpuscular Hemoglobin 23.2 pg (28.0-32.0); Mean Corpuscular Hgb Conc. 30.5 g/dL (32.0-36.0); Monocytes # (auto) 0.6 10 ^3/uL (0-1.3); Monocytes % (auto) 6.1 % (0.0-12.0); Neutrophils # (auto) 8.8 10 ^3/uL (1.6-8.6); Neutrophils % (auto) 84.7 % (37.0-80.0); Platelet Count (auto) 326 10^3/uL (140-450); Red Blood Cells 4.33 10^6/uL (4.5-5.90); Red Cell Distribution Width 18.8 % (11.8-14.3); White Blood Cell 10.4 10^3/uL (4.4-10.8)
[2019-11-07 06:58] LABS: Calcium 8.5 mg/dL (8.5-10.1); Potassium 4.6 mmol/L (3.5-5.1)
[2019-11-07 07:01] LABS: BUN/Creatinine Ratio 36.4; Bilirubin, Total 0.2 mg/dL (0.2-1.0); Total Protein 6.1 g/dL (6.4-8.2)
[2019-11-07 08:00] VITALS: BP 154/78
[2019-11-07] MEDS: FERROUS SULFATE 325 MG TAB PO SCH ×2 (08:20→12:05)
[2019-11-07] MEDS: SODIUM CHLORIDE 0.9% 1,000 ML IV SCH (08:22)
[2019-11-07] MEDS: PANTOPRAZOLE 40 MG/10 ML VIAL INJ IV SCH (09:49)
[2019-11-07] MEDS: levETIRAcetam 500 MG TAB PO SCH (09:52)
[2019-11-07] MEDS: busPIRone HCL 10 MG TAB PO SCH (09:54)
[2019-11-07] MEDS: hydrOXYzine 25 MG TAB or CAP PO SCH (09:55)
[2019-11-07] MEDS: FLUTICASONE PROP NASAL SPR 0.05 % (50MCG) 16GM EACHNOSTRI SCH (10:00)
[2019-11-07] MEDS: TAMSULOSIN HYDROCHLORIDE 0.4 MG CAP PO SCH (10:00)
[2019-11-07] MEDS: PHENYTOIN SODIUM 100 MG CAP PO SCH (10:00)
[2019-11-07] MEDS: BACLOFEN 10 MG TAB PO SCH (10:00)
[2019-11-07] MEDS: SENNA 8.6 MG TAB PO SCH (10:00)
[2019-11-07] MEDS: CARVEDILOL 3.125 MG TAB PO SCH (10:01)
[2019-11-07] MEDS: DOCUSATE SOD 100 MG CAP PO SCH (10:02)
[2019-11-07] MEDS: CITALOPRAM HYDROBR 20 MG TAB PO SCH (10:02)
[2019-11-07] MEDS: ALPRAZolam 0.5 MG TAB PO SCH (10:02)
[2019-11-07] MEDS: LISINOPRIL 5 MG TAB PO SCH (10:03)
[2019-11-07] MEDS: ASPirin-EC 81 mg tab PO SCH (10:04)
[2019-11-07] MEDS: NICOTINE 21MG/24 HR TOPICAL PATCH TD SCH (10:08)
[2019-11-07 14:56] VITALS: BP 152/90
== END 2019-11-07 15:55 | disposition home or self-care (01) | DRG 241 ==
LOC: EDBD 11:54 → ER 11:54 → TELE 11:55 → TELE-EAST 11-02 16:05 → TELE-WESTW 11-03 14:29
PROVIDERS: ADMIT Hospitalist; ATTEND Internal Medicine
PROC: 0DB88ZX Excision of Small Intestine, Via Natural or Artificial Opening Endoscopic, Diagnostic (ICD-10-PCS; 2019-11-06)
PROC: 0DB58ZX Excision of Esophagus, Via Natural or Artificial Opening Endoscopic, Diagnostic (ICD-10-PCS; principal; 2019-11-06 12:21)
DX: K25.9 Gastric ulcer, unspecified as acute or chronic, without hemorrhage or perforation (principal); K22.70 Barrett's esophagus without dysplasia; D50.0 Iron deficiency anemia secondary to blood loss (chronic); G40.409 Other generalized epilepsy and epileptic syndromes, not intractable, without status epilepticus; I11.0 Hypertensive heart disease with heart failure; J44.1 Chronic obstructive pulmonary disease with (acute) exacerbation; I25.5 Ischemic cardiomyopathy; B17.9 Acute viral hepatitis, unspecified; E66.9 Obesity, unspecified; F41.9 Anxiety disorder, unspecified; K29.70 Gastritis, unspecified, without bleeding; K21.9 Gastro-esophageal reflux disease without esophagitis; J96.20 Acute and chronic respiratory failure, unspecified whether with hypoxia or hypercapnia; E44.0 Moderate protein-calorie malnutrition; I50.23 Acute on chronic systolic (congestive) heart failure; E03.9 Hypothyroidism, unspecified; K44.9 Diaphragmatic hernia without obstruction or gangrene; E78.5 Hyperlipidemia, unspecified; Z68.31 Body mass index [BMI] 31.0-31.9, adult; F32.9 Major depressive disorder, single episode, unspecified; G25.9 Extrapyramidal and movement disorder, unspecified; I25.10 Atherosclerotic heart disease of native coronary artery without angina pectoris; I25.2 Old myocardial infarction; J32.9 Chronic sinusitis, unspecified; K31.3 Pylorospasm, not elsewhere classified; K59.04 Chronic idiopathic constipation; M19.90 Unspecified osteoarthritis, unspecified site; Z20.828 Contact with and (suspected) exposure to other viral communicable diseases; Z79.899 Other long term (current) drug therapy; Z80.9 Family history of malignant neoplasm, unspecified; Z82.0 Family history of epilepsy and other diseases of the nervous system; Z82.5 Family history of asthma and other chronic lower respiratory diseases; Z83.3 Family history of diabetes mellitus; Z87.891 Personal history of nicotine dependence
CPT/HCPCS: 36415; 43239; 71045; 76705; 78452; 80053; 80061; 80074; 80164; 80185; 80307; 81001; 82378; 82542; 82607; 82728; 82746; 83036; 83540; 83550; 83880; 84484; 85025; 85610; 85730; 86704; 86706; 86708; 86803; 87040; 87077; 87086; 87186; 87340; 87426; 93005; 93017; 93306; 94640; 95819; C9113; G0378; J0153; J0696; J2001; J2250; J2405; J2704; J3490

== ENCOUNTER 2021-05-14 21:20 | Inpatient (IN) | payer MEDICAID ==
[~2021-05-14] VITALS: Ht 165.1 cm; Wt 65.7 kg
[~2021-05-14 21:20] MED LIST changes: -CITA-30 PO; +CITA20TA9 PO; -IBUP800T24 PO; +IBUP800T26 PO; -QUET400T3 PO; +QUET400T4 PO; -ROPI2TAB4 PO; +ROPI2TAB6 PO
[2021-05-14] MEDS ORDERED: ALBUTEROL SULF 2.5 MG/0.5ML(0.5%) NEB SOLN NEB ONE ×2 (22:00→22:15)
[2021-05-14] MEDS ORDERED: IPRATROPIUM BROM 0.5 MG/2.5ML INH SOL NEB ONE ×2 (22:00→22:15)
[2021-05-14] MEDS ORDERED: methylPREDNISolone SOD SUCC 125 MG/2 ML VL IV ONE (22:45)
[2021-05-14 23:13] LABS: Basophils # (auto) 0.1 10 ^3/uL (0-0.2); Basophils % (auto) 0.7 % (0.0-2.0); Eosinophils # (auto) 0.1 10 ^3/uL (0-0.8); Eosinophils % (auto) 1.4 % (0.0-7.0); Hemoglobin 11.1 g/dL (13.5-17.5); Lymphocytes % (auto) 10.9 % (10.0-50.0); Mean Corpuscular Hemoglobin 22.4 pg (28.0-32.0); Mean Corpuscular Hgb Conc. 30.9 g/dL (32.0-36.0); Mean Corpuscular Volume 72.4 fL (80.0-100.0); Neutrophils # (auto) 7.2 10 ^3/uL (1.6-8.6); Nucleated Red Blood Cells % 0.1 %; Red Blood Cells 4.97 10^6/uL (4.5-5.90); Red Cell Distribution Width 18.4 % (11.8-14.3); White Blood Cell 9.5 10^3/uL (4.4-10.8)
[2021-05-14 23:18] LABS: Urine Amorphous Crystal MOD /hpf (None Seen); Urine Bacteria NONE SEEN /hpf (None Seen); Urine Blood Negative /uL (Negative); Urine Specific Gravity 1.021 (1.001-1.035); Urine WBC 2 /hpf (0 - 3)
[2021-05-14 23:23] LABS: Albumin 3.6 g/dL (3.4-5.0); BUN/Creatinine Ratio 21.9; Calcium 9.1 mg/dL (8.5-10.1); Potassium 4.5 mmol/L (3.5-5.1)
[2021-05-14 23:28] LABS: Bilirubin, Total 0.2 mg/dL (0.2-1.0); Total Protein 7.3 g/dL (6.4-8.2)
[2021-05-15] MEDS ORDERED: HYDROcodone-ACET 7.5/325MG TAB PO ONE (02:00)
[2021-05-15] MEDS ORDERED: NITROGLYCERIN 0.4 MG SL TAB SL PRN (05:00)
[2021-05-15] MEDS ORDERED: IOHEXOL 350 MG/ML 100ML IJ ONE ×2 (05:04)
[2021-05-15 09:00] VITALS: BP 152/84
[2021-05-15 09:25] VITALS: BP 145/73
[2021-05-15] MEDS: ENOXAPARIN SOD 40 MG/0.4 ML SYRINGE SC SCH (10:00)
[2021-05-15] MEDS: FLUoxetine HCL 20 MG CAP PO SCH (10:00)
[2021-05-15] MEDS: PHENYTOIN SODIUM 100 MG CAP PO SCH (10:00)
[2021-05-15] MEDS: MORPHINE SULFATE INJECTION 2 MG/ML SYRG IV PRN ×3 (10:34→22:44)
[2021-05-15 12:51] VITALS: BP 155/81
[2021-05-15] MEDS ORDERED: ALBUTEROL SULF 2.5 MG/0.5ML(0.5%) NEB SOLN ONE (13:56)
[2021-05-15] MEDS ORDERED: IPRATROPIUM BROM 0.5 MG/2.5ML INH SOL ONE (13:56)
[2021-05-15] MEDS ORDERED: ALBUTEROL SULF 2.5 MG/0.5ML(0.5%) NEB SOLN NEB PRN (14:00)
[2021-05-15] MEDS ORDERED: IPRATROPIUM BROM 0.5 MG/2.5ML INH SOL NEB PRN (14:00)
[2021-05-15] MEDS ORDERED: methylPREDNISolone SOD SUCC 40 MG/ML VL IV ONE (14:00)
[2021-05-15 14:13] VITALS: BP 155/81
[2021-05-15 16:53] VITALS: BP 143/81
[2021-05-15] MEDS ORDERED: TAMSULOSIN HYDROCHLORIDE 0.4 MG CAP PO SCH ×2 (18:00)
[2021-05-15] MEDS: ACETYLCYSTEINE 10 %(100MG/ML) SOL 4ML NEB SCH (18:46)
[2021-05-15] MEDS: IPRATROPIUM BROM 0.5 MG/2.5ML INH SOL NEB SCH (18:47)
[2021-05-15] MEDS: BUDESONIDE (INHALATION) 0.5 MG/2 ML NEB NEB SCH (18:47)
[2021-05-15] MEDS: ALBUTEROL SULF 2.5 MG/0.5ML(0.5%) NEB SOLN NEB SCH (18:47)
[2021-05-15 22:00] VITALS: BP 112/73
[2021-05-15] MEDS ORDERED: METOPROLOL TARTRATE 25 MG TAB PO SCH (22:00)
[2021-05-15] MEDS: levETIRAcetam 500 MG TAB PO SCH (22:42)
[2021-05-15] MEDS: methylPREDNISolone SOD SUCC 40 MG/ML VL IV SCH (22:42)
[2021-05-15] MEDS: QUEtiapine FUMARATE 100 MG TAB PO SCH (22:43)
[2021-05-15] MEDS: ZOLPIDEM TARTRATE 5 MG TAB PO PRN (22:44)
[2021-05-16] VITALS (7 sets, daily range): BP systolic 96–140; BP diastolic 49–69
[2021-05-16] MEDS: IPRATROPIUM BROM 0.5 MG/2.5ML INH SOL NEB SCH ×4 (00:34→19:27)
[2021-05-16] MEDS: ACETYLCYSTEINE 10 %(100MG/ML) SOL 4ML NEB SCH ×4 (00:34→19:28)
[2021-05-16] MEDS: ALBUTEROL SULF 2.5 MG/0.5ML(0.5%) NEB SOLN NEB SCH ×4 (00:34→19:27)
[2021-05-16 06:02] LABS: Basophils # (auto) 0 10 ^3/uL (0-0.2); Basophils % (auto) 0.1 % (0.0-2.0); Eosinophils # (auto) 0 10 ^3/uL (0-0.8); Monocytes # (auto) 0.2 10 ^3/uL (0-1.3)
[2021-05-16 06:10] LABS: Hematocrit 29.9 % (41.0-53.0); Hemoglobin 9.5 g/dL (13.5-17.5); Lymphocytes # (auto) 0.5 10 ^3/uL (0.4-5.4); Lymphocytes % (auto) 4.8 % (10.0-50.0); Mean Corpuscular Hemoglobin 22.7 pg (28.0-32.0); Mean Corpuscular Hgb Conc. 31.8 g/dL (32.0-36.0); Mean Corpuscular Volume 71.4 fL (80.0-100.0); Monocytes % (auto) 1.8 % (0.0-12.0); Neutrophils % (auto) 93.3 % (37.0-80.0); Red Blood Cells 4.19 10^6/uL (4.5-5.90); Red Cell Distribution Width 18.2 % (11.8-14.3); White Blood Cell 10.7 10^3/uL (4.4-10.8)
[2021-05-16 06:30] LABS: Potassium 4.8 mmol/L (3.5-5.1)
[2021-05-16] MEDS: BUDESONIDE (INHALATION) 0.5 MG/2 ML NEB NEB SCH ×2 (06:35→19:27)
[2021-05-16 06:40] LABS: Albumin 2.9 g/dL (3.4-5.0); BUN/Creatinine Ratio 38.2; Bilirubin, Total 0.2 mg/dL (0.2-1.0); Total Protein 5.8 g/dL (6.4-8.2)
[2021-05-16] MEDS: PHENYTOIN SODIUM 100 MG CAP PO SCH (10:00)
[2021-05-16] MEDS: methylPREDNISolone SOD SUCC 40 MG/ML VL IV SCH ×2 (10:00→22:45)
[2021-05-16] MEDS: levETIRAcetam 500 MG TAB PO SCH ×2 (10:00→22:49)
[2021-05-16] MEDS: FLUoxetine HCL 20 MG CAP PO SCH (10:00)
[2021-05-16] MEDS: ENOXAPARIN SOD 40 MG/0.4 ML SYRINGE SC SCH (10:00)
[2021-05-16] MEDS: HYDROcodone-ACET 5/325MG TAB PO PRN (11:33)
[2021-05-16] MEDS: MORPHINE SULFATE INJECTION 2 MG/ML SYRG IV PRN (20:58)
[2021-05-16] MEDS: QUEtiapine FUMARATE 100 MG TAB PO SCH (22:46)
[2021-05-16] MEDS: ZOLPIDEM TARTRATE 5 MG TAB PO PRN (22:47)
[2021-05-17] MEDS: ACETYLCYSTEINE 10 %(100MG/ML) SOL 4ML NEB SCH ×4 (00:53→18:59)
[2021-05-17] MEDS: ALBUTEROL SULF 2.5 MG/0.5ML(0.5%) NEB SOLN NEB SCH ×4 (00:53→18:59)
[2021-05-17] MEDS: IPRATROPIUM BROM 0.5 MG/2.5ML INH SOL NEB SCH ×4 (00:53→18:59)
[2021-05-17] MEDS: BUDESONIDE (INHALATION) 0.5 MG/2 ML NEB NEB SCH ×2 (06:33→18:59)
[2021-05-17 08:57] VITALS: BP 111/62
[2021-05-17] MEDS: methylPREDNISolone SOD SUCC 40 MG/ML VL IV SCH ×2 (10:00→22:00)
[2021-05-17] MEDS: PHENYTOIN SODIUM 100 MG CAP PO SCH (10:00)
[2021-05-17] MEDS: ENOXAPARIN SOD 40 MG/0.4 ML SYRINGE SC SCH (10:00)
[2021-05-17] MEDS: levETIRAcetam 500 MG TAB PO SCH ×2 (10:00→22:00)
[2021-05-17] MEDS: FLUoxetine HCL 20 MG CAP PO SCH (10:00)
[2021-05-17 12:54] VITALS: BP 129/76
[2021-05-17] MEDS ORDERED: LACTULOSE 20Gm/30ML SOLN PO PRN (13:15)
[2021-05-17] MEDS ORDERED: LACTULOSE 20Gm/30ML SOLN PO ONE (13:15)
[2021-05-17 17:03] VITALS: BP 140/85
[2021-05-17 22:00] VITALS: BP 142/73
[2021-05-17] MEDS: QUEtiapine FUMARATE 100 MG TAB PO SCH (22:00)
[2021-05-17] MEDS: HYDROcodone-ACET 5/325MG TAB PO PRN (22:39)
[2021-05-18] MEDS: MORPHINE SULFATE INJECTION 2 MG/ML SYRG IV PRN ×3 (00:22→13:14)
[2021-05-18] MEDS: ACETYLCYSTEINE 10 %(100MG/ML) SOL 4ML NEB SCH ×4 (00:25→18:12)
[2021-05-18] MEDS: ALBUTEROL SULF 2.5 MG/0.5ML(0.5%) NEB SOLN NEB SCH ×4 (00:25→18:12)
[2021-05-18] MEDS: IPRATROPIUM BROM 0.5 MG/2.5ML INH SOL NEB SCH ×4 (00:25→18:12)
[2021-05-18 03:37] VITALS: BP 102/69
[2021-05-18 05:00] VITALS: BP 137/61
[2021-05-18] MEDS: BUDESONIDE (INHALATION) 0.5 MG/2 ML NEB NEB SCH ×2 (07:56→18:12)
[2021-05-18 08:00] VITALS: BP 135/75
[2021-05-18] MEDS: methylPREDNISolone SOD SUCC 40 MG/ML VL IV SCH ×2 (08:54→22:12)
[2021-05-18] MEDS: PHENYTOIN SODIUM 100 MG CAP PO SCH (08:55)
[2021-05-18] MEDS: FLUoxetine HCL 20 MG CAP PO SCH (08:55)
[2021-05-18] MEDS: levETIRAcetam 500 MG TAB PO SCH ×2 (08:55→22:12)
[2021-05-18] MEDS: ENOXAPARIN SOD 40 MG/0.4 ML SYRINGE SC SCH (08:56)
[2021-05-18 12:39] VITALS: BP 131/68
[2021-05-18 17:15] VITALS: BP 133/62
[2021-05-18] MEDS: TAMSULOSIN HYDROCHLORIDE 0.4 MG CAP PO SCH (18:18)
[2021-05-18 21:49] VITALS: BP 146/63
[2021-05-18] MEDS: QUEtiapine FUMARATE 100 MG TAB PO SCH (22:12)
[2021-05-19] MEDS: ALBUTEROL SULF 2.5 MG/0.5ML(0.5%) NEB SOLN NEB SCH ×2 (00:01→19:37)
[2021-05-19] MEDS: IPRATROPIUM BROM 0.5 MG/2.5ML INH SOL NEB SCH ×2 (00:01→19:36)
[2021-05-19] MEDS: ACETYLCYSTEINE 10 %(100MG/ML) SOL 4ML NEB SCH ×2 (00:01→19:37)
[2021-05-19 05:03] VITALS: BP 120/65
[2021-05-19 09:00] VITALS: BP 108/56
[2021-05-19] MEDS: methylPREDNISolone SOD SUCC 40 MG/ML VL IV SCH ×2 (09:43→22:34)
[2021-05-19] MEDS: levETIRAcetam 500 MG TAB PO SCH ×2 (09:45→22:35)
[2021-05-19] MEDS: PHENYTOIN SODIUM 100 MG CAP PO SCH (09:45)
[2021-05-19] MEDS: ENOXAPARIN SOD 40 MG/0.4 ML SYRINGE SC SCH (09:46)
[2021-05-19] MEDS: FLUoxetine HCL 20 MG CAP PO SCH (09:46)
[2021-05-19] MEDS: HYDROcodone-ACET 5/325MG TAB PO PRN (09:49)
[2021-05-19 13:00] VITALS: BP 109/59
[2021-05-19] MEDS: MORPHINE SULFATE INJECTION 2 MG/ML SYRG IV PRN ×2 (13:06→20:39)
[2021-05-19 17:00] VITALS: BP 137/68
[2021-05-19] MEDS: TAMSULOSIN HYDROCHLORIDE 0.4 MG CAP PO SCH (18:22)
[2021-05-19] MEDS: BUDESONIDE (INHALATION) 0.5 MG/2 ML NEB NEB SCH (19:37)
[2021-05-19] MEDS: QUEtiapine FUMARATE 100 MG TAB PO SCH (22:34)
[2021-05-20] MEDS: IPRATROPIUM BROM 0.5 MG/2.5ML INH SOL NEB SCH ×3 (00:12→12:05)
[2021-05-20] MEDS: ACETYLCYSTEINE 10 %(100MG/ML) SOL 4ML NEB SCH ×3 (00:12→12:05)
[2021-05-20] MEDS: ALBUTEROL SULF 2.5 MG/0.5ML(0.5%) NEB SOLN NEB SCH ×3 (00:12→12:05)
[2021-05-20 05:00] VITALS: BP 128/59
[2021-05-20] MEDS: BUDESONIDE (INHALATION) 0.5 MG/2 ML NEB NEB SCH (06:15)
[2021-05-20] MEDS: MORPHINE SULFATE INJECTION 2 MG/ML SYRG IV PRN (08:22)
[2021-05-20 09:00] VITALS: BP 122/67
[2021-05-20] MEDS: FLUoxetine HCL 20 MG CAP PO SCH (09:57)
[2021-05-20] MEDS: PHENYTOIN SODIUM 100 MG CAP PO SCH (09:57)
[2021-05-20] MEDS: levETIRAcetam 500 MG TAB PO SCH (09:58)
[2021-05-20] MEDS: ENOXAPARIN SOD 40 MG/0.4 ML SYRINGE SC SCH (09:58)
[2021-05-20] MEDS: methylPREDNISolone SOD SUCC 40 MG/ML VL IV SCH (09:59)
[2021-05-20 13:00] VITALS: BP 122/57
[2021-05-20] MEDS ORDERED: HYDR-4902 PO (14:36)
[2021-05-20] MEDS ORDERED: ASPI81TA10 PO (15:17)
[2021-05-20] MEDS ORDERED: ALPR0.5T PO (15:17)
[2021-05-20] MEDS ORDERED: ROPI2TAB6 PO (15:17)
[2021-05-20] MEDS ORDERED: FLUO40CA PO (15:17)
[2021-05-20] MEDS ORDERED: QUET400T4 PO (15:17)
[2021-05-20] MEDS ORDERED: ALB5IS NEB (15:17)
[2021-05-20] MEDS ORDERED: IPR002IS NEB (15:17)
[2021-05-20] MEDS ORDERED: TAMS0.4C36 PO (15:17)
[2021-05-20 17:05] VITALS: BP 136/73
[2021-05-20] MEDS: TAMSULOSIN HYDROCHLORIDE 0.4 MG CAP PO SCH (18:16)
[2021-05-20 18:32] VITALS: BP 136/73
== END 2021-05-20 19:00 | disposition home or self-care (01) | DRG 140 ==
LOC: ER 21:24 → TELE 05-15 04:54 → TELE-WESTW 05-15 08:47 → WEST WING 05-18 10:28
PROVIDERS: ADMIT Internal Medicine; ATTEND Internal Medicine
DX: J44.1 Chronic obstructive pulmonary disease with (acute) exacerbation (principal); J96.01 Acute respiratory failure with hypoxia; N40.0 Benign prostatic hyperplasia without lower urinary tract symptoms; K21.9 Gastro-esophageal reflux disease without esophagitis; F41.9 Anxiety disorder, unspecified; F11.20 Opioid dependence, uncomplicated; F32.A Depression, unspecified; G25.81 Restless legs syndrome; Z20.822 Contact with and (suspected) exposure to COVID-19; R56.9 Unspecified convulsions; I11.0 Hypertensive heart disease with heart failure; I50.9 Heart failure, unspecified; Z79.899 Other long term (current) drug therapy; Z82.0 Family history of epilepsy and other diseases of the nervous system; Z83.3 Family history of diabetes mellitus; Z87.891 Personal history of nicotine dependence
CPT/HCPCS: 36415; 36600; 71045; 71275; 80053; 80185; 81001; 82805; 83880; 84484; 85025; 85379; 87426; 93306; 94640; 96374; 99291; G0378

== ENCOUNTER 2021-05-23 16:05 | Inpatient (IN) | payer MEDICAID ==
[~2021-05-23] VITALS: Ht 165.1 cm; Wt 81.4 kg
[~2021-05-23 16:05] MED LIST changes: +ALB5IS NEB; -ALBU18 IN; -BACL10TA PO; -CARV3.1240 PO; -CITA20TA9 PO; -DIVA500T13 PO; -FLUR30CA12 PO; -FURO20TA3 PO; +HYDR-4902 PO; -HYDR1CAP27 PO; -IBUP800T26 PO; -IPR002IS HHN; +IPR002IS NEB; -LEVE500T32 PO; -LORA-622 PO; -MORP1TAB12 PO; -MULTLIQ36 OR; -OMEP20CA74 PO; -OXYC-102 PO; -OXYC15TA77 PO; -PHE100C PO; -POTA-220 PO; -PRAZ2CAP PO; -SENN1TAB14 PO; -SUCR1TAB22 OR; -TRAM50TA2 PO
[2021-05-23] MEDS ORDERED: ALBUTEROL SULF 2.5 MG/0.5ML(0.5%) NEB SOLN NEB ONE (16:45)
[2021-05-23] MEDS ORDERED: IPRATROPIUM BROM 0.5 MG/2.5ML INH SOL NEB ONE (16:45)
[2021-05-23] MEDS ORDERED: methylPREDNISolone SOD SUCC 125 MG/2 ML VL IV ONE (16:45)
[2021-05-23 17:06] LABS: Basophils # (auto) 0.1 10 ^3/uL (0-0.2); Basophils % (auto) 0.6 % (0.0-2.0); Eosinophils # (auto) 0.1 10 ^3/uL (0-0.8); Hematocrit 29.9 % (41.0-53.0); Hemoglobin 9.3 g/dL (13.5-17.5); Lymphocytes # (auto) 0.8 10 ^3/uL (0.4-5.4); Lymphocytes % (auto) 7.4 % (10.0-50.0); Mean Corpuscular Hemoglobin 22.5 pg (28.0-32.0); Mean Corpuscular Volume 72.6 fL (80.0-100.0); Monocytes # (auto) 1.2 10 ^3/uL (0-1.3); Monocytes % (auto) 11.5 % (0.0-12.0); Neutrophils # (auto) 8.5 10 ^3/uL (1.6-8.6); Neutrophils % (auto) 79.5 % (37.0-80.0); Nucleated Red Blood Cells % 0.1 %; Red Blood Cells 4.13 10^6/uL (4.5-5.90); Red Cell Distribution Width 18.9 % (11.8-14.3); White Blood Cell 10.7 10^3/uL (4.4-10.8)
[2021-05-23] MEDS ORDERED: ONDANSETRON HCL 4 MG/2 ML VIAL IV ONE (17:15)
[2021-05-23] MEDS ORDERED: MORPHINE SULFATE INJECTION 2 MG/ML SYRG IV ONE (17:15)
[2021-05-23 17:23] LABS: Calcium 8.1 mg/dL (8.5-10.1); Potassium 4.1 mmol/L (3.5-5.1)
[2021-05-23 17:31] LABS: BUN/Creatinine Ratio 31.3; Bilirubin, Total 0.2 mg/dL (0.2-1.0); Total Protein 6.2 g/dL (6.4-8.2)
[2021-05-23] MEDS ORDERED: AZITHROMYCIN 250 MG TAB PO ONE (20:30)
[2021-05-23] MEDS ORDERED: ACETAMINOPHEN 325 MG TAB PO PRN (20:30)
[2021-05-23] MEDS ORDERED: DOCUSATE SOD 100 MG CAP PO PRN (20:30)
[2021-05-23] MEDS ORDERED: ALBUTEROL SULF 2.5 MG/0.5ML(0.5%) NEB SOLN NEB PRN (20:30)
[2021-05-23] MEDS ORDERED: IPRATROPIUM BROM 0.5 MG/2.5ML INH SOL NEB PRN (20:30)
[2021-05-23] MEDS ORDERED: ONDANSETRON HCL 4 MG/2 ML VIAL IV PRN (20:30)
[2021-05-23 22:16] VITALS: BP 118/97
[2021-05-23 22:31] VITALS: BP 118/97
[2021-05-23] MEDS: HYDROcodone-ACET 5/325MG TAB PO PRN (22:41)
[2021-05-23] MEDS: methylPREDNISolone SOD SUCC 125 MG/2 ML VL IV SCH (23:01)
[2021-05-23] MEDS: MORPHINE SULFATE 4 MG/ML SYR/VIAL IV PRN (23:56)
[2021-05-24] MEDS ORDERED: diphenhdrAMINE HCL 25 MG CAP PO ONE
[2021-05-24] MEDS: ALBUTEROL SULF 2.5 MG/0.5ML(0.5%) NEB SOLN NEB SCH ×4 (00:29→18:50)
[2021-05-24] MEDS: IPRATROPIUM BROM 0.5 MG/2.5ML INH SOL NEB SCH ×4 (00:29→18:50)
[2021-05-24 01:32] VITALS: BP 118/97
[2021-05-24] MEDS: MORPHINE SULFATE 4 MG/ML SYR/VIAL IV PRN ×4 (04:36→20:38)
[2021-05-24 05:00] VITALS: BP 110/39
[2021-05-24] MEDS: methylPREDNISolone SOD SUCC 125 MG/2 ML VL IV SCH (06:01)
[2021-05-24 06:11] LABS: Basophils # (auto) 0 10 ^3/uL (0-0.2); Basophils % (auto) 0.1 % (0.0-2.0); Eosinophils # (auto) 0 10 ^3/uL (0-0.8); Lymphocytes # (auto) 0.2 10 ^3/uL (0.4-5.4); Monocytes # (auto) 0.2 10 ^3/uL (0-1.3); Neutrophils # (auto) 9.3 10 ^3/uL (1.6-8.6); White Blood Cell 9.7 10^3/uL (4.4-10.8)
[2021-05-24 06:16] LABS: Eosinophils % (auto) 0.1 % (0.0-7.0); Hematocrit 27.7 % (41.0-53.0); Lymphocytes % (auto) 2.4 % (10.0-50.0); Mean Corpuscular Hemoglobin 23.5 pg (28.0-32.0); Mean Corpuscular Hgb Conc. 32.3 g/dL (32.0-36.0); Mean Corpuscular Volume 72.9 fL (80.0-100.0); Monocytes % (auto) 1.7 % (0.0-12.0); Neutrophils % (auto) 95.7 % (37.0-80.0); Red Blood Cells 3.81 10^6/uL (4.5-5.90); Red Cell Distribution Width 18.7 % (11.8-14.3)
[2021-05-24 06:40] LABS: Calcium 8.4 mg/dL (8.5-10.1); Chloride 104 mmol/L (98-107); Potassium 5.4 mmol/L (3.5-5.1); Sodium 138 mmol/L (136-145)
[2021-05-24 06:42] LABS: Alanine Aminotransferase 35 U/L (16-61); Albumin 2.7 g/dL (3.4-5.0); Anion Gap 4 (5-15); Aspartate Aminotransferase 18 U/L (15-37); BUN/Creatinine Ratio 32.8; Blood Urea Nitrogen 20 mg/dL (7-18); Carbon Dioxide 30 mmol/L (21-32); GFR African American 173 mL/min; GFR Non-African American 143 mL/min; Glucose 167 mg/dL (74-106)
[2021-05-24 06:45] LABS: Alkaline Phosphatase 96 U/L (45-117); Bilirubin, Total < 0.1 mg/dL (0.2-1.0); Total Protein 5.9 g/dL (6.4-8.2)
[2021-05-24] MEDS: HYDROcodone-ACET 5/325MG TAB PO PRN (08:40)
[2021-05-24 09:00] VITALS: BP 114/71
[2021-05-24] MEDS: TAMSULOSIN HYDROCHLORIDE 0.4 MG CAP PO SCH (10:00)
[2021-05-24] MEDS: FLUoxetine HCL 20 MG CAP PO SCH (10:00)
[2021-05-24] MEDS: AZITHROMYCIN 250 MG TAB PO SCH (10:00)
[2021-05-24] MEDS: ENOXAPARIN SOD 40 MG/0.4 ML SYRINGE SC SCH (10:00)
[2021-05-24] MEDS: FAMOTIDINE 20 MG TAB PO SCH (10:00)
[2021-05-24] MEDS: ASPirin-EC 81 mg tab PO SCH (10:00)
[2021-05-24 13:00] VITALS: BP 155/86
[2021-05-24] MEDS: methylPREDNISolone SOD SUCC 40 MG/ML VL IV SCH ×2 (14:00→21:46)
[2021-05-24 16:45] VITALS: BP 149/56
[2021-05-24] MEDS: ALPRAZolam 0.5 MG TAB PO PRN (20:50)
[2021-05-24 21:38] VITALS: BP 143/79
[2021-05-25] MEDS: IPRATROPIUM BROM 0.5 MG/2.5ML INH SOL NEB SCH ×5 (00:30→23:55)
[2021-05-25] MEDS: ALBUTEROL SULF 2.5 MG/0.5ML(0.5%) NEB SOLN NEB SCH ×5 (00:30→23:54)
[2021-05-25] MEDS: MORPHINE SULFATE 4 MG/ML SYR/VIAL IV PRN ×4 (02:41→20:43)
[2021-05-25 04:35] VITALS: BP 137/75
[2021-05-25] MEDS: ALPRAZolam 0.5 MG TAB PO PRN (05:36)
[2021-05-25] MEDS: methylPREDNISolone SOD SUCC 40 MG/ML VL IV SCH ×3 (06:55→21:43)
[2021-05-25 07:59] LABS: Basophils # (auto) 0 10 ^3/uL (0-0.2); Basophils % (auto) 0.1 % (0.0-2.0); Eosinophils # (auto) 0 10 ^3/uL (0-0.8); White Blood Cell 15.7 10^3/uL (4.4-10.8)
[2021-05-25 08:01] LABS: BUN/Creatinine Ratio 40.4; Calcium 8.2 mg/dL (8.5-10.1); Hematocrit 29.2 % (41.0-53.0); Lymphocytes # (auto) 0.4 10 ^3/uL (0.4-5.4); Lymphocytes % (auto) 2.4 % (10.0-50.0); Magnesium 2.3 mg/dL (1.6-2.6); Mean Corpuscular Hemoglobin 22.6 pg (28.0-32.0); Mean Corpuscular Hgb Conc. 30.8 g/dL (32.0-36.0); Mean Corpuscular Volume 73.2 fL (80.0-100.0); Monocytes # (auto) 0.5 10 ^3/uL (0-1.3); Monocytes % (auto) 3.3 % (0.0-12.0); Neutrophils # (auto) 14.8 10 ^3/uL (1.6-8.6); Neutrophils % (auto) 94.2 % (37.0-80.0); Potassium 4.5 mmol/L (3.5-5.1); Red Blood Cells 3.99 10^6/uL (4.5-5.90); Red Cell Distribution Width 18.9 % (11.8-14.3)
[2021-05-25 09:00] VITALS: BP 135/70
[2021-05-25] MEDS: AZITHROMYCIN 250 MG TAB PO SCH (10:00)
[2021-05-25] MEDS: ASPirin-EC 81 mg tab PO SCH (10:00)
[2021-05-25] MEDS: TAMSULOSIN HYDROCHLORIDE 0.4 MG CAP PO SCH (10:00)
[2021-05-25] MEDS: FLUoxetine HCL 20 MG CAP PO SCH (10:00)
[2021-05-25] MEDS: ENOXAPARIN SOD 40 MG/0.4 ML SYRINGE SC SCH (10:00)
[2021-05-25] MEDS: FAMOTIDINE 20 MG TAB PO SCH (10:00)
[2021-05-25 13:00] VITALS: BP 143/93
[2021-05-25] MEDS: LORazepam 0.5 MG TAB PO PRN (13:10)
[2021-05-25 17:00] VITALS: BP 140/80
[2021-05-25 21:18] LABS: Amphetamine Screen, Urine NEGATIVE (NEGATIVE); Barbiturate Scree,Urine NEGATIVE (NEGATIVE); Cannabinoid Screen, Urine POSITIVE (NEGATIVE); Cocaine Screen, Urine NEGATIVE (NEGATIVE); Opiate Scree,Urine NEGATIVE (NEGATIVE); Phencyclidine Screen, Urine NEGATIVE (NEGATIVE)
[2021-05-25 21:25] LABS: Benzodiazephine Screen, Urine NEGATIVE (NEGATIVE)
[2021-05-25] MEDS: ZOLPIDEM TARTRATE 5 MG TAB PO PRN (21:44)
[2021-05-25 22:00] VITALS: BP 150/87
[2021-05-25] MEDS ORDERED: ZOLPIDEM TARTRATE 5 MG TAB PO PRN (22:00)
[2021-05-26] MEDS: LORazepam 0.5 MG TAB PO PRN ×2 (00:23→11:57)
[2021-05-26] MEDS: MORPHINE SULFATE 4 MG/ML SYR/VIAL IV PRN ×2 (03:06→08:10)
[2021-05-26 05:00] VITALS: BP 156/95
[2021-05-26] MEDS: methylPREDNISolone SOD SUCC 40 MG/ML VL IV SCH ×3 (06:00→23:13)
[2021-05-26] MEDS: IPRATROPIUM BROM 0.5 MG/2.5ML INH SOL NEB SCH ×3 (06:34→18:26)
[2021-05-26] MEDS: ALBUTEROL SULF 2.5 MG/0.5ML(0.5%) NEB SOLN NEB SCH ×3 (06:35→18:26)
[2021-05-26 09:00] VITALS: BP 158/76
[2021-05-26] MEDS ORDERED: QUEtiapine FUMARATE 100 MG TAB PO ONE (09:15)
[2021-05-26] MEDS ORDERED: MORPHINE SULFATE INJECTION 2 MG/ML SYRG IV ONE (09:45)
[2021-05-26] MEDS ORDERED: methylPREDNISolone SOD SUCC 125 MG/2 ML VL IV ONE (10:00)
[2021-05-26] MEDS: TAMSULOSIN HYDROCHLORIDE 0.4 MG CAP PO SCH (10:03)
[2021-05-26] MEDS: ASPirin-EC 81 mg tab PO SCH (10:03)
[2021-05-26] MEDS: ENOXAPARIN SOD 40 MG/0.4 ML SYRINGE SC SCH (10:04)
[2021-05-26] MEDS: FAMOTIDINE 20 MG TAB PO SCH (10:04)
[2021-05-26] MEDS: AZITHROMYCIN 250 MG TAB PO SCH (10:04)
[2021-05-26] MEDS: FLUoxetine HCL 20 MG CAP PO SCH (10:04)
[2021-05-26 12:23] VITALS: BP 150/81
[2021-05-26 17:00] VITALS: BP 145/79
[2021-05-26 19:09] VITALS: BP 145/79
[2021-05-26 22:00] VITALS: BP 154/83
[2021-05-26] MEDS: ZOLPIDEM TARTRATE 5 MG TAB PO PRN (23:14)
[2021-05-27] MEDS: ALBUTEROL SULF 2.5 MG/0.5ML(0.5%) NEB SOLN NEB SCH ×4 (00:21→19:33)
[2021-05-27] MEDS: IPRATROPIUM BROM 0.5 MG/2.5ML INH SOL NEB SCH ×4 (00:21→19:33)
[2021-05-27] MEDS: MORPHINE SULFATE 4 MG/ML SYR/VIAL IV PRN ×2 (03:59→09:42)
[2021-05-27 05:00] VITALS: BP 151/75
[2021-05-27] MEDS: methylPREDNISolone SOD SUCC 40 MG/ML VL IV SCH ×2 (08:00→21:25)
[2021-05-27 09:08] VITALS: BP 145/71
[2021-05-27] MEDS: ASPirin-EC 81 mg tab PO SCH (09:44)
[2021-05-27] MEDS: TAMSULOSIN HYDROCHLORIDE 0.4 MG CAP PO SCH (09:45)
[2021-05-27] MEDS: FAMOTIDINE 20 MG TAB PO SCH (09:45)
[2021-05-27] MEDS: AZITHROMYCIN 250 MG TAB PO SCH (09:45)
[2021-05-27] MEDS: FLUoxetine HCL 20 MG CAP PO SCH (09:45)
[2021-05-27] MEDS: ENOXAPARIN SOD 40 MG/0.4 ML SYRINGE SC SCH (09:45)
[2021-05-27] MEDS: HYDROcodone-ACET 5/325MG TAB PO PRN ×2 (15:53→21:26)
[2021-05-27] MEDS: LORazepam 0.5 MG TAB PO PRN (15:53)
[2021-05-27 20:00] VITALS: BP 138/81
[2021-05-27] MEDS: ZOLPIDEM TARTRATE 5 MG TAB PO PRN (21:27)
[2021-05-27 22:00] VITALS: BP 126/87
[2021-05-27] MEDS ORDERED: QUEtiapine FUMARATE 100 MG TAB PO SCH (22:00)
[2021-05-28 05:00] VITALS: BP 135/86
[2021-05-28] MEDS: IPRATROPIUM BROM 0.5 MG/2.5ML INH SOL NEB SCH ×3 (06:25→11:16)
[2021-05-28] MEDS: ALBUTEROL SULF 2.5 MG/0.5ML(0.5%) NEB SOLN NEB SCH ×3 (06:25→11:16)
[2021-05-28 09:00] VITALS: BP 148/86
[2021-05-28] MEDS: HYDROcodone-ACET 5/325MG TAB PO PRN (09:24)
[2021-05-28] MEDS: methylPREDNISolone SOD SUCC 40 MG/ML VL IV SCH (09:25)
[2021-05-28] MEDS: AZITHROMYCIN 250 MG TAB PO SCH (09:25)
[2021-05-28] MEDS: ASPirin-EC 81 mg tab PO SCH (09:25)
[2021-05-28] MEDS: ENOXAPARIN SOD 40 MG/0.4 ML SYRINGE SC SCH (09:25)
[2021-05-28] MEDS: FAMOTIDINE 20 MG TAB PO SCH (09:25)
[2021-05-28] MEDS: TAMSULOSIN HYDROCHLORIDE 0.4 MG CAP PO SCH (09:25)
[2021-05-28] MEDS: FLUoxetine HCL 20 MG CAP PO SCH (09:25)
[2021-05-28] MEDS ORDERED: FLUT1AER3 IN (10:38)
[2021-05-28] MEDS ORDERED: PRED20TA2 PO (11:54)
[2021-05-28 13:00] VITALS: BP 135/79
== END 2021-05-28 14:23 | disposition home or self-care (01) | DRG 140 ==
LOC: ER 16:05 → OVERFLOW 20:22 → WEST WING 22:17
PROVIDERS: ADMIT Internal Medicine; ATTEND Internal Medicine
DX: J44.1 Chronic obstructive pulmonary disease with (acute) exacerbation (principal); J96.21 Acute and chronic respiratory failure with hypoxia; N40.0 Benign prostatic hyperplasia without lower urinary tract symptoms; F41.9 Anxiety disorder, unspecified; J98.11 Atelectasis; K21.9 Gastro-esophageal reflux disease without esophagitis; R53.81 Other malaise; Z20.822 Contact with and (suspected) exposure to COVID-19; N18.9 Chronic kidney disease, unspecified; I12.9 Hypertensive chronic kidney disease with stage 1 through stage 4 chronic kidney disease, or unspecified chronic kidney disease; F12.90 Cannabis use, unspecified, uncomplicated; I25.10 Atherosclerotic heart disease of native coronary artery without angina pectoris; F11.20 Opioid dependence, uncomplicated; I25.2 Old myocardial infarction; Z87.891 Personal history of nicotine dependence; Z80.3 Family history of malignant neoplasm of breast; Z83.3 Family history of diabetes mellitus
CPT/HCPCS: 36415; 36600; 71045; 71250; 80048; 80053; 80307; 82805; 83735; 84484; 85025; 85379; 87081; 93005; 93970; 94640; 96374; 96375; 97163; G0378; J2405

== ENCOUNTER 2021-07-26 09:33 | Inpatient (IN) | payer MEDICAID ==
[~2021-07-26] VITALS: Ht 172.7 cm; Wt 85.1 kg
[~2021-07-26 09:33] MED LIST changes: +FLUT1AER3 IN; +PRED20TA2 PO
[2021-07-26] MEDS ORDERED: methylPREDNISolone SOD SUCC 125 MG/2 ML VL IV ONE (10:15)
[2021-07-26] MEDS ORDERED: IPRATROPIUM BROM 0.5 MG/2.5ML INH SOL HHN ONE (10:15)
[2021-07-26] MEDS ORDERED: ALBUTEROL SULF 2.5 MG/0.5ML(0.5%) NEB SOLN HHN ONE (10:15)
[2021-07-26 11:10] LABS: Basophils # (auto) 0.1 10 ^3/uL (0-0.2); Basophils % (auto) 0.7 % (0.0-2.0); Eosinophils # (auto) 0 10 ^3/uL (0-0.8); Eosinophils % (auto) 0.2 % (0.0-7.0); Hemoglobin 10.9 g/dL (13.5-17.5); Lymphocytes % (auto) 10.6 % (10.0-50.0); Mean Corpuscular Hemoglobin 23.3 pg (28.0-32.0); Mean Corpuscular Volume 72.7 fL (80.0-100.0); Monocytes # (auto) 0.8 10 ^3/uL (0-1.3); Neutrophils # (auto) 7.9 10 ^3/uL (1.6-8.6); Neutrophils % (auto) 80.5 % (37.0-80.0); Nucleated Red Blood Cells % 0.1 %; Red Blood Cells 4.68 10^6/uL (4.5-5.90); White Blood Cell 9.8 10^3/uL (4.4-10.8)
[2021-07-26 11:33] LABS: Albumin 3.6 g/dL (3.4-5.0); Calcium 8.9 mg/dL (8.5-10.1); Potassium 4.1 mmol/L (3.5-5.1)
[2021-07-26 11:36] LABS: BUN/Creatinine Ratio 18.6
[2021-07-26 11:39] LABS: Bilirubin, Total 0.2 mg/dL (0.2-1.0); Total Protein 7.4 g/dL (6.4-8.2)
[2021-07-26] MEDS ORDERED: MORPHINE SULFATE 4 MG/ML SYR/VIAL IV ONE (12:00)
[2021-07-26] MEDS ORDERED: ONDANSETRON HCL 4 MG/2 ML VIAL IV ONE (12:00)
[2021-07-26 13:28] LABS: Urine Bacteria NONE SEEN /hpf (None Seen); Urine Blood Negative /uL (Negative); Urine Hyaline Cast FEW /lpf (0 - 2); Urine Specific Gravity 1.016 (1.001-1.035); Urine WBC 14 /hpf (0 - 3)
[2021-07-26] MEDS ORDERED: cefTRIAXone 1GM/50ML D5W 50 ML IV ONE (13:45)
[2021-07-26] MEDS ORDERED: IPRATROPIUM BROM 0.5 MG/2.5ML INH SOL NEB PRN (15:45)
[2021-07-26] MEDS ORDERED: AZITHROMYCIN 500MG/ 250ML 250 ML IV ONE (15:45)
[2021-07-26] MEDS ORDERED: hydrALAZINE HCL 20 MG/ML VL IV PRN (16:00)
[2021-07-26 16:47] VITALS: BP 156/89
[2021-07-26] MEDS ORDERED: IPRATROPIUM BROM 0.5 MG/2.5ML INH SOL NEB SCH (18:00)
[2021-07-26] MEDS ORDERED: MORPHINE SULFATE INJ 2 MG/ml SYRG IV ONE (18:00)
[2021-07-26] MEDS: ALBUTEROL SULF 2.5 MG/0.5ML(0.5%) NEB SOLN NEB PRN (18:34)
[2021-07-26 22:00] VITALS: BP 147/65
[2021-07-26] MEDS: methylPREDNISolone SOD SUCC 125 MG/2 ML VL IV SCH (22:36)
[2021-07-27] MEDS ORDERED: TEMAZEPAM 15 MG CAP PO ONE
[2021-07-27] MEDS: ALBUTEROL SULF 2.5 MG/0.5ML(0.5%) NEB SOLN NEB SCH ×4 (00:13→19:32)
[2021-07-27] MEDS: IPRATROPIUM BROM 0.5 MG/2.5ML INH SOL NEB SCH ×4 (00:13→19:32)
[2021-07-27 05:00] VITALS: BP 136/70
[2021-07-27 05:39] LABS: Basophils # (auto) 0 10 ^3/uL (0-0.2); Eosinophils # (auto) 0 10 ^3/uL (0-0.8); Lymphocytes # (auto) 0.4 10 ^3/uL (0.4-5.4); White Blood Cell 9.5 10^3/uL (4.4-10.8)
[2021-07-27 05:41] LABS: Basophils % (auto) 0.1 % (0.0-2.0); Hematocrit 30.2 % (41.0-53.0); Hemoglobin 9.7 g/dL (13.5-17.5); Lymphocytes % (auto) 4.4 % (10.0-50.0); Mean Corpuscular Hemoglobin 23.2 pg (28.0-32.0); Mean Corpuscular Volume 72.6 fL (80.0-100.0); Monocytes # (auto) 0.1 10 ^3/uL (0-1.3); Monocytes % (auto) 1.4 % (0.0-12.0); Neutrophils % (auto) 94.1 % (37.0-80.0); Red Blood Cells 4.16 10^6/uL (4.5-5.90)
[2021-07-27 06:04] LABS: Potassium 4.6 mmol/L (3.5-5.1)
[2021-07-27 06:11] LABS: Albumin 3.1 g/dL (3.4-5.0); BUN/Creatinine Ratio 24.3; Bilirubin, Total 0.1 mg/dL (0.2-1.0); Calcium 8.6 mg/dL (8.5-10.1); Total Protein 6.6 g/dL (6.4-8.2)
[2021-07-27 09:00] VITALS: BP 153/86
[2021-07-27] MEDS: cefTRIAXone 1GM/50ML D5W 50 ML IV SCH (09:00)
[2021-07-27] MEDS: methylPREDNISolone SOD SUCC 125 MG/2 ML VL IV SCH ×2 (09:06→23:44)
[2021-07-27] MEDS: ENOXAPARIN SOD 40 MG/0.4 ML SYRINGE SC SCH (09:16)
[2021-07-27] MEDS: AZITHROMYCIN 500MG/ 250ML 250 ML IV SCH (10:00)
[2021-07-27] MEDS ORDERED: LORazepam 0.5 MG TAB PO PRN (11:45)
[2021-07-27] MEDS ORDERED: QUEtiapine FUMARATE 100 MG TAB PO STA (11:52)
[2021-07-27 12:33] LABS: Alcohol, Urine < 3.0 mg/dL (0-10); Amphetamine Screen, Urine NEGATIVE (NEGATIVE); Barbiturate Scree,Urine NEGATIVE (NEGATIVE); Benzodiazephine Screen, Urine NEGATIVE (NEGATIVE); Cannabinoid Screen, Urine POSITIVE (NEGATIVE); Cocaine Screen, Urine NEGATIVE (NEGATIVE); Opiate Scree,Urine POSITIVE (NEGATIVE); Phencyclidine Screen, Urine NEGATIVE (NEGATIVE)
[2021-07-27 13:00] VITALS: BP 155/72
[2021-07-27] MEDS ORDERED: LORazepam 2MG/ML-1ML VIAL IM STA (13:08)
[2021-07-27 17:00] VITALS: BP 138/69
[2021-07-27] MEDS ORDERED: LORazepam 2MG/ML-1ML VIAL IV PRN (18:15)
[2021-07-27 19:18] LABS: Cholesterol 150 mg/dL (< 200); HDL Cholesterol 84 mg/dL (40-59); LDL Cholesterol 55 mg/dL (< 100); Triglycerides 27 mg/dL (< 150)
[2021-07-27] MEDS ORDERED: QUEtiapine FUMARATE 100 MG TAB PO SCH (22:00)
[2021-07-27] MEDS: levETIRAcetam 500 MG TAB PO SCH (23:44)
[2021-07-27] MEDS: LORazepam 2MG/ML-1ML VIAL IV PRN (23:44)
[2021-07-28 00:01] VITALS: BP 129/63
[2021-07-28] MEDS: ALBUTEROL SULF 2.5 MG/0.5ML(0.5%) NEB SOLN NEB SCH ×4 (00:30→18:17)
[2021-07-28] MEDS: IPRATROPIUM BROM 0.5 MG/2.5ML INH SOL NEB SCH ×4 (00:30→18:17)
[2021-07-28 06:04] VITALS: BP 126/59
[2021-07-28 08:50] VITALS: BP 154/81
[2021-07-28] MEDS: LORazepam 2MG/ML-1ML VIAL IV PRN ×2 (08:59→17:14)
[2021-07-28] MEDS: cefTRIAXone 1GM/50ML D5W 50 ML IV SCH (09:00)
[2021-07-28] MEDS: ENOXAPARIN SOD 40 MG/0.4 ML SYRINGE SC SCH (10:00)
[2021-07-28] MEDS: methylPREDNISolone SOD SUCC 125 MG/2 ML VL IV SCH ×2 (10:00→22:15)
[2021-07-28] MEDS: levETIRAcetam 500 MG TAB PO SCH ×2 (10:00→22:15)
[2021-07-28] MEDS: ASPirin-EC 81 mg tab PO SCH (10:00)
[2021-07-28] MEDS: AZITHROMYCIN 500MG/ 250ML 250 ML IV SCH (10:00)
[2021-07-28 17:00] VITALS: BP 132/87
[2021-07-28 21:43] VITALS: BP 138/69
[2021-07-29] MEDS: IPRATROPIUM BROM 0.5 MG/2.5ML INH SOL NEB SCH ×3 (01:15→11:19)
[2021-07-29] MEDS: ALBUTEROL SULF 2.5 MG/0.5ML(0.5%) NEB SOLN NEB SCH ×3 (01:15→11:19)
[2021-07-29] MEDS: LORazepam 2MG/ML-1ML VIAL IV PRN (01:18)
[2021-07-29] MEDS: ALBUTEROL SULF 2.5 MG/0.5ML(0.5%) NEB SOLN NEB PRN (03:01)
[2021-07-29 05:00] VITALS: BP 139/67
[2021-07-29] MEDS: cefTRIAXone 1GM/50ML D5W 50 ML IV SCH (08:31)
[2021-07-29] MEDS: ENOXAPARIN SOD 40 MG/0.4 ML SYRINGE SC SCH (08:32)
[2021-07-29] MEDS: ASPirin-EC 81 mg tab PO SCH (08:32)
[2021-07-29] MEDS: methylPREDNISolone SOD SUCC 125 MG/2 ML VL IV SCH (08:32)
[2021-07-29] MEDS: levETIRAcetam 500 MG TAB PO SCH (08:32)
[2021-07-29 09:00] VITALS: BP 154/82
[2021-07-29] MEDS: AZITHROMYCIN 500MG/ 250ML 250 ML IV SCH (10:26)
[2021-07-29 10:38] VITALS: BP 154/82
[2021-07-29] MEDS ORDERED: ALBUAER3 IN (11:17)
[2021-07-29] MEDS ORDERED: PRED20TA2 PO (11:17)
[2021-07-29] MEDS ORDERED: ALBU0.084 NEB (11:17)
[2021-07-29] MEDS ORDERED: HYDR-4902 PO (11:17)
[2021-07-29] MEDS ORDERED: AZIT500T66 PO (11:17)
[2021-07-29] MEDS ORDERED: LEVE500T32 PO (11:21)
[2021-07-29 11:51] VITALS: BP 154/82
== END 2021-07-29 14:56 | disposition home or self-care (01) | DRG 133 ==
LOC: ER 09:33 → TELE 15:15 → TELE-WESTW 17:37
PROVIDERS: ADMIT Registered Nurse; ATTEND Family Medicine
DX: J96.21 Acute and chronic respiratory failure with hypoxia (principal); I13.0 Hypertensive heart and chronic kidney disease with heart failure and stage 1 through stage 4 chronic kidney disease, or unspecified chronic kidney disease; Z99.81 Dependence on supplemental oxygen; I50.9 Heart failure, unspecified; D63.8 Anemia in other chronic diseases classified elsewhere; J44.1 Chronic obstructive pulmonary disease with (acute) exacerbation; Z71.6 Tobacco abuse counseling; F11.20 Opioid dependence, uncomplicated; N39.0 Urinary tract infection, site not specified; N18.9 Chronic kidney disease, unspecified; F41.9 Anxiety disorder, unspecified; G40.409 Other generalized epilepsy and epileptic syndromes, not intractable, without status epilepticus; F12.90 Cannabis use, unspecified, uncomplicated; R80.9 Proteinuria, unspecified; Z20.822 Contact with and (suspected) exposure to COVID-19; R20.0 Anesthesia of skin; K21.9 Gastro-esophageal reflux disease without esophagitis; N40.0 Benign prostatic hyperplasia without lower urinary tract symptoms; Z59.7 Insufficient social insurance and welfare support; Z79.82 Long term (current) use of aspirin; Z79.899 Other long term (current) drug therapy; I25.2 Old myocardial infarction; Z80.3 Family history of malignant neoplasm of breast; Z82.0 Family history of epilepsy and other diseases of the nervous system; Z83.3 Family history of diabetes mellitus; Z87.891 Personal history of nicotine dependence; Z91.19 Patient's noncompliance with other medical treatment and regimen
CPT/HCPCS: 36415; 36600; 70450; 70551; 71045; 80053; 80061; 80307; 81001; 82805; 83605; 83735; 83880; 84484; 85025; 87040; 93005; 93886; 94640; 94644; 96361; 96365; 96367; 96375; 99291; G0378; J0696; J2405